=== PATIENT | male | born 1970 | race American Indian/Alaskan Native ===

== ENCOUNTER 2018-02-05 06:01 | Inpatient (IN) | payer MEDICAID ==
[~2018-02-05] VITALS: Ht 172.7 cm; Wt 68.0 kg
[2018-02-05 06:07] VITALS: BP_SYST 122
--- NOTE | 2018-02-05 06:08 | NUR ---
Patient to ER bed 4 to gown for evaluation. Side rails up. Report given to POOL DUMONT.
--- NOTE | 2018-02-05 06:26 | NUR ---
# 20 gauge angiocath placed to left AC. Use of asceptic technique. Opsite placed over site. Blood return noted. Blood for lab drawn from site. Flushed with 10 cc of normal saline. No evidence of infiltration noted. Patient tolerated well.
[2018-02-05] MEDS ORDERED: NACL 0.9% 1,000 ML IV ONE (06:45)
[2018-02-05 06:52] LABS: BASOPHILS % (AUTO) 0.3 % (0.0-2.0); EOSINOPHILS % (AUTO) 0.2 % (0.0-4.0); HEMATOCRIT 40.8 % (36-54); HEMOGLOBIN 13.6 g/dL (14.0-18.0); LYMPHOCYTES # (AUTO) 0.5 K/uL (1.0-5.5); LYMPHOCYTES % (AUTO) 10.3 % (20.5-51.5); MEAN CORPUSCULAR HEMOGLOBIN 33 pg (27-31); MEAN CORPUSCULAR HGB CONC 33 % (32-36); MEAN CORPUSCULAR VOLUME 99 fL (79.0-98.0); MONOCYTES # (AUTO) 0.3 K/uL (0.0-1.0); MONOCYTES % (AUTO) 5.5 % (1.7-9.3); NEUTROPHILS # (AUTO) 4.5 K/uL (1.8-7.7); NEUTROPHILS % (AUTO) 83.7 % (40.0-70.0); RED BLOOD CELL COUNT(AUTO) 4.12 MIL/uL (4.2-6.2); RED CELL DISTRIBUTION WIDTH 13.9 % (9.0-15.0); WHITE BLOOD COUNT (AUTO) 5.3 K/uL (4.8-10.8)
--- NOTE | 2018-02-05 06:54 | NUR ---
Patient came in complaining of ABD pain which is diffused at a 8/10 and vomitting that has lasted for the past 3 weeks. Patient states that he drinks about a bottle of vodka week. History of diabetes, HTN, anxiety. NKDA. No other complaints/injuries noted. Will continue to monitor.
--- NOTE | 2018-02-05 06:54 | NUR ---
Note undone in EDM - 02/05/18 at 0700 by [email or web address] Patient came in complaining of ABD pain and vomitting that has lasted for the past 3 weeks. Patient states that he drinks about a bottle week. History of diabetes, HTN, anxiety. NKDA. No other complaints/injuries noted. Will continue to monitor.
[2018-02-05 06:57] LABS: ALBUMIN 3.4 g/dL (3.4-4.8); CALCIUM 8.1 mg/dL (8.4-11.0); CREATININE 0.7 mg/dL (0.55-1.30); TOTAL BILIRUBIN 7.3 mg/dL (0.0-1.0)
[2018-02-05 06:59] LABS: POTASSIUM 2.2 mmol/L (3.5-5.1)
--- NOTE | 2018-02-05 07:00 | NUR ---
ER at bedside examining patient.
[2018-02-05 07:13] LABS: PLATELET COUNT (AUTO) 96 K/uL (130-430)
[2018-02-05] MEDS ORDERED: POTASSIUM CHLORIDE 20 MEQ/PKT PACKET PO ONE (07:15)
--- NOTE | 2018-02-05 07:19 | NUR ---
Pt medicated pt tolerated well.
[2018-02-05] MEDS ORDERED: GLU500 PO (08:20)
[2018-02-05] MEDS ORDERED: LISI-600 PO (08:20)
[2018-02-05] MEDS ORDERED: GLIP5TAB13 PO (08:20)
[2018-02-05] MEDS ORDERED: FOLIC ACID 1 MG, THIAMINE HCL 100 MG, MAGNESIUM SULFATE 1 GM, MVI 10 ML in NACL 0.9% 1,... IV ONE (08:45)
--- NOTE | 2018-02-05 08:55 | NUR ---
Patient will be admitted to care of Dr. Mccoy. Admitted to tele unit. Will go to room 116-B. Belongings list completed. Summary report printed. Report will be given at bedside. Transfer to tele via ACLS protocol. Licensed nurse present. IV present no signs or symptoms of infiltration.
--- NOTE | 2018-02-05 08:57 | NUR ---
ADMISSION NOTE Received patient from ER via gurney. Patient admitted with diagnosis of acute pancreatitis. Patient is awake, alert, oriented X 4. Patient oriented to hospital room, call light, toileting, pain management and safety-teach back done. Patient informed that Esteban will be his nurse and that their room number is 116B. Personal belongings checked and Belongings List documented. Call light within reach.
[2018-02-05] MEDS: ONDANSETRON HCL 4 MG/2 ML VIAL IVP PRN ×2 (09:19→23:28)
[2018-02-05] MEDS: MORPHINE 4 MG/ML INJ. SYRINGE IVP PRN ×4 (09:20→22:46)
[2018-02-05 09:30] VITALS: BP_SYST 142
--- NOTE | 2018-02-05 09:50 | NUR ---
TRANSFER OF CARE REPORT IS RECEIVED FROM ADMISSION NURSE AND CARE IS ENDORSED TO MYSELF. PT IS RECEIVED AWAKE, ALERT, AND ORIENTED X4. NO SIGNS OR SYMPTOMS OF DISTRESS OR SOB NOTED. PAIN MEDICATION WAS GIVEN. PT HAS MULTIPLE BRUISING IN DIFFERENT STAGES OF HEALING THROUGHOUT BODY, SKIN IS INTACT. PT IS COMPLAINING OF BILATERAL LOWER LEG WEAKNESS, PEDAL PULSES PRESENT, PT IS ABLE TO WIGGLES TOES AND PUSH AGAINST MY HANDS. WALKER AT BEDSIDE. PT ADVISED TO USE CALL LIGHT IF HE NEEDS TO HAVE A BOWEL MOVEMENT. URINAL AT BEDSIDE. WHITE BOARD IS UPDATED AND PLAN OF CARE IS DISCUSSED. CURRENT NEEDS ARE MET. BED IS AT LOWEST POSITION, CALL LIGHT WITHIN REACH, THREE SIDE RAILS UP, BED ALARM IS ON. WILL CONTINUE TO MONITOR.
[2018-02-05] MEDS: LORazepam 2 MG/ML VIAL IVP PRN (10:27)
--- NOTE | 2018-02-05 10:51 | NUR ---
ROUNDS PT IS AWAKE AND ALERT, WATCHING TV. NO SIGNS OR SYMPTOMS OF DISTRESS OR SOB NOTED. GAVE PRN ATIVAN IVP PER PT REQUEST AND STATED ANXIETY. BANANA BAG WAS HUNG AND IS INFUSING. CURRENT NEEDS ARE MET. BED IS AT LOWEST POSITION, CALL LIGHT WITHIN REACH, THREE SIDE RAILS UP, BED ALARM IS ON. WILL CONTINUE TO MONITOR.
--- NOTE | 2018-02-05 11:19 | NUR ---
CONSULTATION PAGED REASON FOR CONSULT - GI WAS CONSULT CALLED - YES PERSON NOTIFIED - DENIS CONSULTING PHYSICIAN - DR. FLOR NUMBER CALLED - [phone] ORDERING PHYSICIAN - DR. FIELD
--- NOTE | 2018-02-05 12:16 | NUR ---
ROUNDS PT IS AWAKE AND ALERT, WATCHING TV. NO SIGNS OR SYMPTOMS OF DISTRESS OR SOB NOTED. PT DENIES ANY PAIN. SON IS AT BEDSIDE. CURRENT NEEDS ARE MET. BED IS AT LOWEST POSITION, CALL LIGHT WITHIN REACH, THREE SIDE RAILS UP, BED ALARM IS ON. WILL CONTINUE TO MONITOR.
[2018-02-05 12:45] VITALS: BP_SYST 142
[2018-02-05] MEDS ORDERED: FAMOTIDINE 20 MG TABLET PO ONE (14:15)
[2018-02-05] MEDS ORDERED: BISACODYL 5 MG TABLET.DR (DULCOLAX) PO PRN (14:15)
[2018-02-05] MEDS ORDERED: POTASSIUM CHLORIDE 20 MEQ TAB.PRT.SR PO ONE (14:15)
[2018-02-05] MEDS ORDERED: BISACODYL 10 MG/SUPPOSITORY RC PRN (14:15)
[2018-02-05] MEDS ORDERED: BISACODYL 5 MG TABLET.DR (DULCOLAX) PO ONE (14:15)
[2018-02-05] MEDS ORDERED: KCL 20 mEq in 100 mL (PREMIX) 200 ML IV ONE (14:30)
[2018-02-05] MEDS ORDERED: DOCUSATE SODIUM 250 MG CAPSULE PO ONE (14:30)
[2018-02-05] MEDS ORDERED: DEXTROSE 50% JECT 50 ML DISP.SYRIN IVP PRN (14:45)
[2018-02-05] MEDS ORDERED: chlordiazePOXIDE HCL 25 MG CAPSULE PO ONE (14:45)
--- NOTE | 2018-02-05 14:54 | NUR ---
ROUNDS PT IS AWAKE AND ALERT, WATCHING TV. NO SIGNS OR SYMPTOMS OF DISTRESS OR SOB NOTED. PT IS COMPLAINING OF RIGHT FLANK PAIN OF 8 OUT OF 10 AND WAS GIVEN PRN MORPHINE IVP. ADVISED PT OF INCREASED RISK FOR FALLS AND THE NEED TO USE CALL LIGHT. PT VERBALIZED UNDERSTANDING. CURRENT NEEDS ARE MET. BED IS AT LOWEST POSITION, CALL LIGHT WITHIN REACH, THREE SIDE RAILS UP, BED ALARM IS ON. WILL CONTINUE TO MONITOR.
[2018-02-05] MEDS ORDERED: THIAMINE HCL 100 MG TABLET PO ONE (16:15)
--- NOTE | 2018-02-05 16:25 | NUR ---
CONSULTATION PAGED REASON FOR CONSULTATION - CP WAS CONSULT CALLED - Y PERSON WHO WAS NOTIFIED - EXCHANGE CONSULTING PHYSICIAN - DR. GOLDSMITH ; VASCULAR TECHNOLOGIST SONOGRAPHER - DR. RICH NUMBER CALLED - [phone] ORDERING PHYSICIAN - DR. FIELD
[2018-02-05 16:40] VITALS: BP_SYST 137
[2018-02-05] MEDS: chlordiazePOXIDE HCL 25 MG CAPSULE PO SCH ×2 (16:45→20:56)
--- NOTE | 2018-02-05 16:45 | NUR ---
ROUNDS LATE ENTRY DUE TO PT CARE: PT IS AWAKE AND ALERT, WATCHING TV. NO SIGNS OR SYMPTOMS OF DISTRESS OR SOB NOTED. NO INSULIN COVERAGE WAS NEEDED PER SLIDING SCALE. SCHEDULED MEDICATIONS WERE GIVEN BY MOUTH AND TOLERATED WELL. PT SIGNED CONSENT FOR HIDA SCAN TOMORROW MORNING AND AWARE HE WILL BE NPO EFFECTIVE MIDNIGHT. CURRENT NEEDS ARE MET. BED IS AT LOWEST POSITION, CALL LIGHT WITHIN REACH, THREE SIDE RAILS UP, BED ALARM IS ON. WILL CONTINUE TO MONITOR.
[2018-02-05] MEDS: LR 1,000 ML IV SCH ×2 (17:02→21:02)
[2018-02-05] MEDS: metFORMIN HCL 500 MG TABLET PO SCH (17:03)
[2018-02-05] MEDS: POTASSIUM CHLORIDE 20 MEQ/PKT PACKET PO SCH (18:44)
--- NOTE | 2018-02-05 18:50 | NUR ---
CLOSING NOTE PT IS AWAKE AND ALERT, WATCHING TV. NO SIGNS OR SYMPTOMS OF DISTRESS OR SOB NOTED. PT COMPLAINS OF PAIN OF 8 OUT OF 10 IN RIGHT FLANK AREA AND GAVE PRN MORPHINE. PT ADVISED OF INCREASED RISK FOR FALLS AND THE IMPORTANCE OF USING CALL LIGHT IF HE WANTS TO GET OUT OF BED. PT VERBALIZED UNDERSTANDING. CURRENT NEEDS ARE MET. BED IS AT LOWEST POSITION, CALL LIGHT WITHIN REACH, TWO SIDE RAILS UP. WILL CONTINUE TO MONITOR UNTIL CARE AND REPORT IS GIVEN TO STRUCTURAL FITTER NURSE.
--- NOTE | 2018-02-05 19:15 | NUR ---
CHANGE OF SHIFT; pt. awake, alert and oriented, resting, was just medicated with Morphine. IVF infusing @ 250 ml/hr via left antecubital.on night monitor and shows sinus tach. on fall precautions, bed alarms on. able to move all extremities but noted weakness, bilateral sequentials on. communication board updated. call light within reach.
[2018-02-05 20:00] VITALS: BP_SYST 139
[2018-02-05] MEDS: DOCUSATE SODIUM 250 MG CAPSULE PO SCH (20:55)
[2018-02-05] MEDS: LISINOPRIL 20 MG TABLET PO SCH (20:56)
[2018-02-05] MEDS: FAMOTIDINE 20 MG TABLET PO SCH (20:56)
--- NOTE | 2018-02-05 21:11 | NUR ---
NOTES: pt. assisted to the restroom with walker. schedule meds given and tolerated well. IVF @ 250 cc/hr. K rider completed. call light within reach. fall precautions observed, bed alarm turn back on.
--- NOTE | 2018-02-05 23:00 | NUR ---
NOTES: pt. medicated for abdominal pain, offered to go restroom but denies.
--- NOTE | 2018-02-05 23:46 | NUR ---
NOTES: pt. getting restless for the HIDA scan tomorrow and now nauseated, IV Zofran given. instructed to relax, dep breathing . reminded to use call light for help, tends not to call and just get out of bed without warning, bed alarm on.
[2018-02-06 00:16] VITALS: BP_SYST 113
--- NOTE | 2018-02-06 00:30 | NUR ---
NOTES: pt. set the alarm, did not use the call light, helped to go to restroom with a walker. pt. was given medication fro the nausea earlier, no vomiting noted. on fall precaution.
[2018-02-06] MEDS: LR 1,000 ML IV SCH ×6 (02:16→23:15)
--- NOTE | 2018-02-06 03:14 | NUR ---
NOTES: pt. took off the ekg patches x2 , seems to be getting confused, reorient and instructed not to remove. cardiac pattern unchanged. IVF infusing @ 250 cc/hr. informed charge nurse kristy, will transfer pt. to other room to be watch closely.
--- NOTE | 2018-02-06 03:24 | NUR ---
NOTES: pt. was transferred to room 111 BED A.
[2018-02-06] MEDS: MORPHINE 4 MG/ML INJ. SYRINGE IVP PRN ×4 (05:31→21:12)
--- NOTE | 2018-02-06 05:41 | NUR ---
NOTES: EKG done. IV was disconnected and resume @ 250 cc/hr. medicated with Morphine as ordered for c/o abdominal pain. kept NPO.
[2018-02-06 06:41] LABS: INR 1.1 (0.80-1.20); PROTHROMBIN TIME 10.8 SECS (9.5-12.5)
--- NOTE | 2018-02-06 06:42 | NUR ---
CLOSING NOTES: pt. asleep after pain med given. will check BS. IVF patent. sequentials on. needs further care and assistance.
[2018-02-06 06:49] LABS: BASOPHILS % (AUTO) 0.5 % (0.0-2.0); EOSINOPHILS % (AUTO) 0.7 % (0.0-4.0); LYMPHOCYTES # (AUTO) 0.8 K/uL (1.0-5.5); MONOCYTES # (AUTO) 0.3 K/uL (0.0-1.0); NEUTROPHILS % (AUTO) 73.4 % (40.0-70.0)
[2018-02-06 07:09] LABS: ANION GAP 5 (5-15); CALCIUM 7.7 mg/dL (8.4-11.0); CHLORIDE 104 mmol/L (98-107); CREATININE 0.55 mg/dL (0.55-1.30); GFR AFRICAN AMERICAN 206 mL/min (>90); GLUCOSE 114 mg/dL (70-99); POTASSIUM 3.4 mmol/L (3.5-5.1); SODIUM SERUM 138 mmol/L (136-145); TOTAL BILIRUBIN 5.8 mg/dL (0.0-1.0); UREA NITROGEN, BLOOD 13 mg/dL (8-21)
[2018-02-06 07:10] LABS: ALANINE AMINOTRANSFERASE 47 U/L (12-78); ALBUMIN 2.3 g/dL (3.4-4.8); ASPARTATE AMINOTRANSFERASE 69 U/L (10-37); CHOLESTEROL 173 mg/dL (<200); HDL CHOLESTEROL 20 mg/dL (>45); LDL CHOLESTEROL 130 mg/dL (<100); TRIGLYCERIDES 159 mg/dL (30-150)
[2018-02-06 07:15] LABS: HEMATOCRIT 34.3 % (36-54); HEMOGLOBIN 11.4 g/dL (14.0-18.0); LYMPHOCYTES % (AUTO) 18.4 % (20.5-51.5); MEAN CORPUSCULAR HEMOGLOBIN 34 pg (27-31); MEAN CORPUSCULAR HGB CONC 33 % (32-36); MEAN CORPUSCULAR VOLUME 101 fL (79.0-98.0); NEUTROPHILS # (AUTO) 3.5 K/uL (1.8-7.7); PLATELET COUNT (AUTO) 72 K/uL (130-430); RED BLOOD CELL COUNT(AUTO) 3.39 MIL/uL (4.2-6.2); RED CELL DISTRIBUTION WIDTH 13.6 % (9.0-15.0); WHITE BLOOD COUNT (AUTO) 4.6 K/uL (4.8-10.8)
--- NOTE | 2018-02-06 07:15 | NUR ---
endorsed to incoming shift with nurse Beltran, qasim. sleeping.
--- NOTE | 2018-02-06 07:53 | NUR ---
Patient is asleep, but arousable. A/Ox4. ST on monitor. IV on Left AC, #20, LR, at 250ml/hr, intact and patent. Call light in place, bed locked at the lowest position, bed alarm on, will continue to monitor.
[2018-02-06] MEDS: metFORMIN HCL 500 MG TABLET PO SCH ×2 (08:00→17:01)
--- NOTE | 2018-02-06 08:08 | NUR ---
Nutrition Update Lino Scale 18 noted. Pt admitted for acute pancreatitis Diet: NPO BMI: 22.8 kg/m2 RD to follow per nutrition care standards.
[2018-02-06] MEDS: chlordiazePOXIDE HCL 25 MG CAPSULE PO SCH ×4 (08:10→22:05)
[2018-02-06] MEDS: DOCUSATE SODIUM 250 MG CAPSULE PO SCH ×2 (08:10→20:18)
[2018-02-06] MEDS: FAMOTIDINE 20 MG TABLET PO SCH ×2 (08:10→20:20)
[2018-02-06] MEDS: POTASSIUM CHLORIDE 20 MEQ/PKT PACKET PO SCH ×3 (08:10→18:45)
[2018-02-06] MEDS: MORPHINE 2 MG/ML INJ. SYRINGE IVP PRN ×3 (08:17→23:16)
[2018-02-06 08:23] VITALS: BP_SYST 119
[2018-02-06 08:26] LABS: LIPASE 1539 U/L (73-393)
[2018-02-06] MEDS: LISINOPRIL 20 MG TABLET PO SCH ×2 (09:00→20:18)
--- NOTE | 2018-02-06 10:28 | NUR ---
Patient is still c/o pain. will give pain meds according to pain scale
[2018-02-06 11:02] VITALS: BP_SYST 119
--- NOTE | 2018-02-06 12:45 | NUR ---
Patient tolerated clear liquid lunch without distress.
[2018-02-06] MEDS: NEPHROVITE, (FOLIC ACID/VITAMIN B COMP W-C 1 TAB) PO SCH (12:57)
[2018-02-06] MEDS: CHOLECALCIFEROL (VITAMIN D3) 2,000 UNIT TABLET PO SCH (12:57)
[2018-02-06] MEDS: THIAMINE HCL 100 MG TABLET PO SCH (12:57)
[2018-02-06] MEDS: MULTIVITS,CA,MINERALS/IRON/FA 1 TABLET PO SCH (12:57)
--- NOTE | 2018-02-06 13:10 | NUR ---
Dietitian Recommendations *Recommend continuing clear liquid diet per MD orders. *Recommend advance diet when medically appropriate (CCHO Low Fat 2gm Na diet). Please see Nutritional Assessment for details. ANA LAURA, RD
[2018-02-06] MEDS: LORazepam 2 MG/ML VIAL IVP PRN (13:11)
--- NOTE | 2018-02-06 14:40 | NUR ---
Patient is c/o pain in the abdomen, will give pain medication per order.
--- NOTE | 2018-02-06 15:32 | NUR ---
PATIENT HAS PAIN IN THE ABDOMINAL PAIN 12/30. MORPHINE 4MG IS GIVEN IVP. WILL REASSESS.
[2018-02-06 16:02] VITALS: BP_SYST 138
--- NOTE | 2018-02-06 18:00 | NUR ---
DR. FIELD IS SEEING THE PATIENT. ORDERS ARE GIVEN.
[2018-02-06] MEDS ORDERED: MAGNESIUM SULFATE 4 GM in D5W 250 ML IV ONE (18:45)
--- NOTE | 2018-02-06 19:54 | NUR ---
Initial note: Received handoff report from POOL Beltran at patient's bedside. Patient is awake in bed, alert and oriented x4. No signs or symptoms of acute distress, denies difficulty breathing. IV noted to patient's left AC with IV fluids infusing well to site. Patient's urinal is at bedside. Safety and fall precautions in place, call light is with patient. Will continue with plan of care.
[2018-02-06 20:18] VITALS: BP_SYST 136
--- NOTE | 2018-02-06 22:24 | NUR ---
Rounds: Patient is awake, watching TV in bed. Does not show any signs or symptoms of acute distress. Safety and fall precautions in place, call light is with patient. Will continue to monitor.
[2018-02-07 00:42] VITALS: BP_SYST 142
--- NOTE | 2018-02-07 00:50 | NUR ---
New IV site: Informed by charge nurse POOL Barnett that patient had removed left AC IV line. Upon assessment, patient is alert and oriented x4. New IV access initiated by this RN to patient's left hand, 22 gauge. Site is secured with transparent dressing, tape, and gauze wrap. Will continue monitoring.
--- NOTE | 2018-02-07 02:08 | NUR ---
Patient at nurses' station: Patient found out of bed at the nurses' station at this time. When asked how he can be helped, patient stated, "None of my friends are here". Patient was reoriented, informed him that he is at the hospital. Guided patient back to his room, patient able to ambulate with steady gait. Upon assessment, patient is alert and oriented x3 to person, place, and time; patient is unable to provide a reason for being at the hospital. IV site to patient's left hand remains patent and benign. Safety and fall precautions in place. Will closely monitor.
--- NOTE | 2018-02-07 04:13 | NUR ---
Rounds: Patient is sleeping, no signs or symptoms of acute distress noted. Respirations are even and unlabored. Call light is with patient, safety and fall precautions in place. Will continue monitoring.
--- NOTE | 2018-02-07 06:00 | NUR ---
Closing note: Patient is awake in bed watching TV, does not show signs or symptoms of acute distress. No complaints of pain at this time. Breathing remains even and unlabored. All needs met and attended to. Call light is with patient, safety and fall precautions in place. Will endorse care to dayshift RN.
[2018-02-07 07:28] VITALS: BP_SYST 136
--- NOTE | 2018-02-07 07:32 | NUR ---
Initial note: Patient is alert, oriented x4, states having Rt abdominal pain at 6/10 pain scale , but does not need pain medication right now. He is on LR IVF at 100 ml/hr. He also states that yesterday one doctor said he will advance diet to full liquid diet. Will F/U with GI doctor.
[2018-02-07 08:10] LABS: PROTHROMBIN TIME 10.5 SECS (9.5-12.5)
[2018-02-07] MEDS: NEPHROVITE, (FOLIC ACID/VITAMIN B COMP W-C 1 TAB) PO SCH (08:19)
[2018-02-07] MEDS: FAMOTIDINE 20 MG TABLET PO SCH ×2 (08:19→20:06)
[2018-02-07] MEDS: THIAMINE HCL 100 MG TABLET PO SCH (08:19)
[2018-02-07] MEDS: MULTIVITS,CA,MINERALS/IRON/FA 1 TABLET PO SCH (08:20)
[2018-02-07] MEDS: LISINOPRIL 20 MG TABLET PO SCH ×2 (08:20→20:06)
[2018-02-07 08:24] LABS: ALBUMIN 2.2 g/dL (3.4-4.8); CREATININE 0.59 mg/dL (0.55-1.30); TOTAL BILIRUBIN 5.1 mg/dL (0.0-1.0)
[2018-02-07] MEDS: CHOLECALCIFEROL (VITAMIN D3) 2,000 UNIT TABLET PO SCH (08:24)
[2018-02-07] MEDS: chlordiazePOXIDE HCL 25 MG CAPSULE PO SCH ×2 (08:25→20:06)
[2018-02-07] MEDS: DOCUSATE SODIUM 250 MG CAPSULE PO SCH ×2 (08:26→20:06)
[2018-02-07] MEDS: metFORMIN HCL 500 MG TABLET PO SCH ×2 (08:26→17:22)
[2018-02-07] MEDS: POTASSIUM CHLORIDE 20 MEQ/PKT PACKET PO SCH (08:28)
--- NOTE | 2018-02-07 08:30 | NUR ---
GI round: Dr. Palma makes round and has new order for Abdominal US and advance diet to Full liquid diet. Keep patient NPO for US.
[2018-02-07 08:59] LABS: BASOPHILS % (AUTO) 0.7 % (0.0-2.0); EOSINOPHILS % (AUTO) 1.1 % (0.0-4.0); HEMATOCRIT 32.5 % (36-54); HEMOGLOBIN 10.8 g/dL (14.0-18.0); LYMPHOCYTES # (AUTO) 0.9 K/uL (1.0-5.5); LYMPHOCYTES % (AUTO) 21.5 % (20.5-51.5); MEAN CORPUSCULAR HEMOGLOBIN 34 pg (27-31); MEAN CORPUSCULAR HGB CONC 33 % (32-36); MEAN CORPUSCULAR VOLUME 102 fL (79.0-98.0); MONOCYTES # (AUTO) 0.3 K/uL (0.0-1.0); MONOCYTES % (AUTO) 8.2 % (1.7-9.3); NEUTROPHILS # (AUTO) 2.8 K/uL (1.8-7.7); NEUTROPHILS % (AUTO) 68.5 % (40.0-70.0); PLATELET COUNT (AUTO) 84 K/uL (130-430); RED BLOOD CELL COUNT(AUTO) 3.19 MIL/uL (4.2-6.2); RED CELL DISTRIBUTION WIDTH 13.9 % (9.0-15.0)
[2018-02-07] MEDS: MORPHINE 4 MG/ML INJ. SYRINGE IVP PRN ×2 (09:02→18:19)
[2018-02-07] MEDS: LR 1,000 ML IV SCH ×2 (09:39→19:50)
--- NOTE | 2018-02-07 09:55 | NUR ---
RN round: Patient is sleeping after pain medication given, ZU=601, RR=16, no sing of distress.
--- NOTE | 2018-02-07 11:45 | NUR ---
Hold Insulin for SS: Patient is NPO for Abdominal US, Accu [id number], hold Insulin for SS until off NPO.
[2018-02-07] MEDS ORDERED: MAGNESIUM SULFATE 50 ML IV ONE (13:00)
[2018-02-07] MEDS ORDERED: POTASSIUM CHLORIDE 20 MEQ TAB.PRT.SR PO ONE (13:15)
--- NOTE | 2018-02-07 13:57 | NUR ---
round: makes round and has additional orders.
--- NOTE | 2018-02-07 14:11 | NUR ---
Gutter Installer Note Patient referred to Gutter Installer due to substance abuse. PROGRAMMING ENGINEER met with patient at bedside. Discussed patient's alcoholism and life situation at length. Offered support, encouragement and guidance and provided patient with substance abuse resources. Patient has used AA in the past and plans to continue. Patient voices understanding that he must stop drinking if he wants to improve his health and get his life back in order. Patient provided with Social Service contact information.
--- NOTE | 2018-02-07 15:00 | NUR ---
Start Full liquid: Abdominal was done at bedside. Off "NPO" and start patient with Full liquid diet.
[2018-02-07 15:11] VITALS: BP_SYST 110
[2018-02-07 16:11] VITALS: BP_SYST 111
[2018-02-07] MEDS: INSULIN REGULAR, HUMAN 100 UNITS/ML, 10 ML VIAL (novoLIN R) SUBCUT PRN (17:26)
--- NOTE | 2018-02-07 18:44 | NUR ---
Closing note: Patient is stable, no sign of distress, tolerating Full liquid, no milk well, no N/V. On LR IVF @ 100 Ml/Hr infusing well, no infiltration noted.
--- NOTE | 2018-02-07 19:30 | NUR ---
INITIAL NOTES RECEIVED PATIENT ON BED ON SEMI FERGUSON'S POSITION, AWAKE AND RESTING BREATHING EVEN AND UNLABORED, NO SOB NOTED.PATIENT PATIENT WITH IVF INFUSING WELL, CLEAN DRY INTACT. MAINTAINED SAFETY PRECAUTIONS AND BED ON THE LOWEST POSITION. EXPLAINED THE PLAN OF CARE AND STATED UNDERSTANDING, EXPLAINED THE MEDICATIONS AND STATED UNDERSTANDING. WILL CONTINUE TO MONITOR CALL LIGHT WITHIN REACH.
[2018-02-07 20:00] VITALS: BP_SYST 125
[2018-02-07] MEDS: POTASSIUM CHLORIDE 20 MEQ TAB.PRT.SR PO SCH (20:07)
--- NOTE | 2018-02-07 21:55 | NUR ---
ASSISTED PATIENT PATIENT ASSISTED TO THE BATHROOM, PATIENT WITH STEADY GAIT, PATIENT STILL EDUCATED ON CALLING THE NURSE TO PREVENT FALLS AND PATIENT STATED UNDERSTANDING WILL CONTINUE TO MONITOR CALL LIGHT WITHIN REACH.
--- NOTE | 2018-02-07 23:30 | NUR ---
IV IV WAS ACCIDENTALLY PULLED BY THE PATIENT, IV CANNULA INTACT, NO ACTIVE BLEEDING NOTED, SECURED WITH TAPE AND DRESSING.
--- NOTE | 2018-02-08 00:13 | NUR ---
NEW IV NEW IV ON THE RFA 20 G, CLEAN DRY INTACT NO SWELLING NOTED, WILL CONTINUE TO MONITOR, PATIENT ON STABLE CONDITION CALL LIGHT WITHIN REACH.
[2018-02-08 00:15] VITALS: BP_SYST 117
--- NOTE | 2018-02-08 02:30 | NUR ---
RN ROUNDS PATIENT ON BED SLEEPING AND RESTING, ON STABLE CONDITION, NO PAIN NOTED, MAINTAINED SAFETY PRECAUTIONS CALL LIGHT WITHIN REACH.
--- NOTE | 2018-02-08 04:10 | NUR ---
RN ROUNDS PATIENT AWAKE AND RESTING, ON STABLE CONDITION, ASSISTED PATIENT TO THE BATHROOM, SAFETY PRECAUTIONS MAINTAINED WILL CONTINUE TO MONITOR CALL LIGHT WITHIN REACH.
[2018-02-08] MEDS: LR 1,000 ML IV SCH ×3 (06:00→16:39)
--- NOTE | 2018-02-08 06:53 | NUR ---
CLOSING NOTES PATIENT ON BED AWAKE AND RESTING WATCHING TV, BREATHING EVEN AND UNLABORED, NO SOB NOTED, NO PAIN NOTED, NO NAUSEA AND VOMITING NOTED, MAINTAINED POSITION OF COMFORT AND SAFETY. ALL DUE MEDICATIONS GIVEN AND TOLERATED WELL, EDUCATION GIVEN AND SIDE EFFECTS, STATED UNDERSTANDING. IVF INFUSING WELL, CLEAN DRY INTACT. ALL NEEDS MET, KEPT PATIENT COMFORTABLE, WILL GIVE REPORT TO AM NURSE, WILL CONTINUE TO MONITOR. CALL LIGHT WITHIN REACH.
[2018-02-08 07:14] LABS: BASOPHILS % (AUTO) 1.2 % (0.0-2.0); EOSINOPHILS % (AUTO) 0.7 % (0.0-4.0); HEMATOCRIT 31.5 % (36-54); HEMOGLOBIN 10.8 g/dL (14.0-18.0); LYMPHOCYTES % (AUTO) 24.8 % (20.5-51.5); MEAN CORPUSCULAR HEMOGLOBIN 35 pg (27-31); MEAN CORPUSCULAR HGB CONC 34 % (32-36); MEAN CORPUSCULAR VOLUME 101 fL (79.0-98.0); MONOCYTES # (AUTO) 0.5 K/uL (0.0-1.0); MONOCYTES % (AUTO) 11.7 % (1.7-9.3); NEUTROPHILS # (AUTO) 2.7 K/uL (1.8-7.7); NEUTROPHILS % (AUTO) 61.6 % (40.0-70.0); PLATELET COUNT (AUTO) 110 K/uL (130-430); RED BLOOD CELL COUNT(AUTO) 3.14 MIL/uL (4.2-6.2); RED CELL DISTRIBUTION WIDTH 14.4 % (9.0-15.0); WHITE BLOOD COUNT (AUTO) 4.2 K/uL (4.8-10.8)
[2018-02-08 07:30] LABS: ALBUMIN 2.1 g/dL (3.4-4.8); CALCIUM 8.2 mg/dL (8.4-11.0); CREATININE 0.64 mg/dL (0.55-1.30); POTASSIUM 3.6 mmol/L (3.5-5.1); TOTAL BILIRUBIN 5.6 mg/dL (0.0-1.0)
--- NOTE | 2018-02-08 07:30 | NUR ---
OPENING NOTE PT AWAKE ALERT, SITTING UP IN BED. PT DENIES ANY PAIN AT THIS TIME. PT AMBULATED TO THE RESTROOM WELL- STEADY GAIT NOTED. BED IN THE LOWEST POSITION, PT REFUSING BED ALARM- ENCOURAGED TO CALL FOR HELP USING THE CALL LIGHT . NO DISTRESS NOTED
[2018-02-08 08:00] VITALS: BP_SYST 161
[2018-02-08] MEDS: MORPHINE 4 MG/ML INJ. SYRINGE IVP PRN ×2 (09:06→14:55)
[2018-02-08] MEDS: metFORMIN HCL 500 MG TABLET PO SCH (09:07)
[2018-02-08] MEDS: NEPHROVITE, (FOLIC ACID/VITAMIN B COMP W-C 1 TAB) PO SCH (09:07)
[2018-02-08] MEDS: MULTIVITS,CA,MINERALS/IRON/FA 1 TABLET PO SCH (09:07)
[2018-02-08] MEDS: DOCUSATE SODIUM 250 MG CAPSULE PO SCH ×2 (09:07→21:01)
[2018-02-08] MEDS: LISINOPRIL 20 MG TABLET PO SCH ×2 (09:08→21:03)
[2018-02-08] MEDS: chlordiazePOXIDE HCL 25 MG CAPSULE PO SCH ×2 (09:08→21:02)
[2018-02-08] MEDS: FAMOTIDINE 20 MG TABLET PO SCH ×2 (09:08→21:02)
[2018-02-08] MEDS: CHOLECALCIFEROL (VITAMIN D3) 2,000 UNIT TABLET PO SCH (09:08)
[2018-02-08] MEDS: THIAMINE HCL 100 MG TABLET PO SCH (09:08)
[2018-02-08] MEDS: POTASSIUM CHLORIDE 20 MEQ TAB.PRT.SR PO SCH ×2 (09:09→21:02)
--- NOTE | 2018-02-08 09:16 | NUR ---
MED PASS PT C/O RIGHT FLANK PAIN GIVEN MORPHINE ORDERED. PO MORNING MEDS GIVEN. SAFETY MAINTAINED.
[2018-02-08] MEDS: INSULIN REGULAR, HUMAN 100 UNITS/ML, 10 ML VIAL (novoLIN R) SUBCUT PRN ×2 (11:35→16:43)
--- NOTE | 2018-02-08 11:39 | NUR ---
BLOOD SUGAR CHECK BS 228 PT WAS GIVEN 4 UNITS REGULAR INSULIN. SAFETY MAINTAINED. NO DISTRESS NOTED.
[2018-02-08 12:12] VITALS: BP_SYST 117
[2018-02-08] MEDS: LORazepam 2 MG/ML VIAL IVP PRN (14:00)
--- NOTE | 2018-02-08 14:02 | NUR ---
MED PASS PT GIVEN ATIVAN FOR ANXIETTY AND AGITATION AT THIS TIME. PT UPSET AND REQUESTING MORPHINE FOR PAIN - PT MADE AWARE THAT MEDICATIONS WILL BE GIVEN 1 HR APART FROM ATIVAN.
--- NOTE | 2018-02-08 14:57 | NUR ---
PAIN MED PT COMPLAINING OF PAIN 10/10 GIVEN MORPHINE ORDERED. SAFETY MAINTAINED. WILL MONITOR.
--- NOTE | 2018-02-08 16:46 | NUR ---
blood sugar bs- 184 pt was given 2 units regular insulin. safety maintained.
[2018-02-08 16:57] VITALS: BP_SYST 116
[2018-02-08] MEDS: MORPHINE 2 MG/ML INJ. SYRINGE IVP PRN (19:40)
--- NOTE | 2018-02-08 19:40 | NUR ---
ROUNDS PATIENT RESTING COMFORTABLY IN BED, NOT IN DISTRESS, VITALS STABLE. DENIES ANY PAIN AND DISCOMFORT AT THIS TIME. ASSESSMENT DONE AND DOCUMENTED. SEE FLOWSHEET. NEEDS ATTENDED TO. SAFETY MEASURES IN PLACED. BED IN LOW AND LOCKED POSITION. SIDERAILS UP X2. CALL LIGHT PLACED WITHIN REACH.
--- NOTE | 2018-02-08 21:15 | NUR ---
MEDICATION DUE MEDICATIONS GIVEN SCHEDULED, TOLERATED WELL. WILL CONTINUE TO MONITOR.
--- NOTE | 2018-02-09 00:12 | NUR ---
PATIENT RESTING: Patient resting quietly. No acute distress noted. Vital signs within normal range.
[2018-02-09 00:16] VITALS: BP_SYST 98
--- NOTE | 2018-02-09 02:12 | NUR ---
ROUNDS PATIENT ASLEEP, NOT IN DISTRESS, VITALS STABLE. WILL CONTINUE TO MONITOR.
[2018-02-09] MEDS: MORPHINE 2 MG/ML INJ. SYRINGE IVP PRN ×3 (02:55→19:46)
[2018-02-09] MEDS: LR 1,000 ML IV SCH ×2 (02:59→12:39)
--- NOTE | 2018-02-09 04:00 | NUR ---
PATIENT RESTING: Patient resting quietly. No acute distress noted. Vital signs within normal range.
--- NOTE | 2018-02-09 06:35 | NUR ---
CLOSING NOTES PATIENT AWAKE, VITALS STABLE, ACCU CHECK DONE WITH BLOOD SUGAR OF 161. PATIENT REFUSED INSULIN COVERAGE AT THIS TIME. ALL NEEDS ATTENDED TO. SAFETY MEASURES MAINTAINED. CALL LIGHT PLACED WITHIN REACH.
[2018-02-09 07:02] LABS: BASOPHILS % (AUTO) 0.6 % (0.0-2.0); EOSINOPHILS % (AUTO) 0.5 % (0.0-4.0); HEMATOCRIT 31.9 % (36-54); HEMOGLOBIN 10.3 g/dL (14.0-18.0); LYMPHOCYTES # (AUTO) 1.1 K/uL (1.0-5.5); LYMPHOCYTES % (AUTO) 26.7 % (20.5-51.5); MEAN CORPUSCULAR HEMOGLOBIN 33 pg (27-31); MEAN CORPUSCULAR HGB CONC 32 % (32-36); MEAN CORPUSCULAR VOLUME 102 fL (79.0-98.0); MONOCYTES # (AUTO) 0.6 K/uL (0.0-1.0); MONOCYTES % (AUTO) 14.7 % (1.7-9.3); NEUTROPHILS # (AUTO) 2.3 K/uL (1.8-7.7); NEUTROPHILS % (AUTO) 57.5 % (40.0-70.0); PLATELET COUNT (AUTO) 134 K/uL (130-430); RED BLOOD CELL COUNT(AUTO) 3.14 MIL/uL (4.2-6.2); RED CELL DISTRIBUTION WIDTH 14.8 % (9.0-15.0)
[2018-02-09 07:05] LABS: CALCIUM 8.2 mg/dL (8.4-11.0); CREATININE 0.61 mg/dL (0.55-1.30); POTASSIUM 3.8 mmol/L (3.5-5.1); TOTAL BILIRUBIN 4.3 mg/dL (0.0-1.0)
--- NOTE | 2018-02-09 07:37 | NUR ---
OPENING NOTE PT AWAKE ALERT, NO DISTRESS NOTED. CALL LIGHT WITHIN REACH. BED IN LOWEST POSITION, PT REFUSING BED ALARM AT THIS TIME. SAFETY MAINTAINED.
[2018-02-09 08:00] VITALS: BP_SYST 114
[2018-02-09] MEDS: POTASSIUM CHLORIDE 20 MEQ TAB.PRT.SR PO SCH ×2 (08:30→21:03)
[2018-02-09] MEDS: NEPHROVITE, (FOLIC ACID/VITAMIN B COMP W-C 1 TAB) PO SCH (08:30)
[2018-02-09] MEDS: chlordiazePOXIDE HCL 25 MG CAPSULE PO SCH ×2 (08:30→21:03)
[2018-02-09] MEDS: DOCUSATE SODIUM 250 MG CAPSULE PO SCH ×2 (08:30→21:03)
[2018-02-09] MEDS: CHOLECALCIFEROL (VITAMIN D3) 2,000 UNIT TABLET PO SCH (08:30)
[2018-02-09] MEDS: FAMOTIDINE 20 MG TABLET PO SCH ×2 (08:30→21:04)
[2018-02-09] MEDS: THIAMINE HCL 100 MG TABLET PO SCH (08:30)
[2018-02-09] MEDS: LISINOPRIL 20 MG TABLET PO SCH ×2 (08:31→21:04)
[2018-02-09] MEDS: MULTIVITS,CA,MINERALS/IRON/FA 1 TABLET PO SCH (08:31)
--- NOTE | 2018-02-09 08:35 | NUR ---
med pass am meds given at this time. pt c/o left sided flank pain given morphine 2 mgs as ordered. pt npo after am meds.
--- NOTE | 2018-02-09 11:13 | NUR ---
blood sugar bs- 109 no coverage needed.
[2018-02-09 12:38] VITALS: BP_SYST 113
--- NOTE | 2018-02-09 12:41 | NUR ---
med pass new ivf hung a this itme. video poker floorman speaking with pt as well. safety maintained.
--- NOTE | 2018-02-09 15:12 | NUR ---
PT STILL IN HIDA SCAN AT THIS TIME.
--- NOTE | 2018-02-09 16:00 | NUR ---
[facility] pt still npo for possible further imaging
[2018-02-09 16:42] VITALS: BP_SYST 118
--- NOTE | 2018-02-09 16:56 | NUR ---
Nutrition F/U Admitting Diagnosis Acute Pancreatitis Reviewed Pertinent Medical/Surgical Hx Medical Record Patient Patient's mother Medical History Comment: Pt found w/: Acute Alcoholic Gastritis/Esophagitis, Atypical CP, Severe Hypokalemia, Fatty liver, HTN, DM, Peripheral neuropathy, Alcoholism, Anemia and thrombocytopenia per MD notes. Per MD Consult notes: Acute Pancreatitis, Acute hepatitis. Subjective Information Pt seen resting in bed at time of RD visit w/ mother at bedside. Pt reported that his appetite has been improving. Pt denied any N/V/C, but that he has been having diarrhea for the past couple of days. RD encouraged pt to try to drink adequate fluids; pt agreeable. Pt reported that he had gastric bypass 10 years ago, and as a result, has needed to avoids lactose-containing foods. Current diet remains appropriate. Pt was not interested in nutrition education. Current Diet Order/Nutrition Support 2 gm Na x1 day Patient/Significant Other Able To Verbalize Education Provided Not Indicated Pertinent Medications VIT D, nephrovite, thiamine, theragran-M,glipizide zofran, k-dur, SSI Pertinent Labs K 3.8 WNL (improved), BG 130 H, POC BG 161 H, ALB 2 L, H/H 10.3 L/31.9 L, WBC 4 L, TGL 159 H, Na 135 L, BUN 5 L Height (Feet) 5 feet Height (Inches) 8.00 inches Weight (Pounds) 150 pounds Weight (Calculated Kilograms) 68.333931 kilograms Patient Weight 68.039 kg Body Mass Index 22.80 kg/m2 %IBW 97 [place]/Adjusted Body Weight 154 lb, 70 kg Recent Weight Change Yes - per pt Weight Status Appropriate Last BM 02/09/18 x1 Food Allergies Yes - lactose-containing food per pt Usual Diet At Home regular diet per pt Skin Integrity Comment: Lino scale: 21; L abd w/ bruise per nursing notes Current % PO Fair (50-74%) Estimated Energy Expenditure (kcals/day) 6697-0082 kcal/day (30-35 kcal/kg CBW for maintenance) Estimated Protein Required (g/day) 68-102 gm/day (1-1.5 gm/kg CBW for acute hepatitis) Estimated Fluid Required (l/day) 2.4 L/day (35 ml/kg CBW for maintenance) Problem/Etiology/Signs/Symptoms Inadequate nutritional intake related to behavioral factors as evidenced by pt's report of poor oral intake d/t depression and replacing meals w/ alcohol intake. *ongoing Expected Outcomes/Goals Monitor advancement of diet, and increase in oral intake w/ goal of pt meeting at least 75% of estimated nutritional needs, labs trending WNL, normal GI function, skin integrity/wt maintenance. Dietitian Recommendations * Recommend CCHO, cardiac diet Follow Up Moderate Risk: F/U in 3-5 days
--- NOTE | 2018-02-09 17:08 | NUR ---
Dietitian Recommendations * Recommend CCHO, cardiac diet LP, RD Please refer to Nutrition F/U for details.
--- NOTE | 2018-02-09 18:49 | NUR ---
CLOSING NOTE ALL NEEDS MET THROUGH SHIFT. SAFETY MAINTAINED. WILL ENDORSE CARE TO LANDSCAPE MAINTENANCE INTERNSHIP.
--- NOTE | 2018-02-09 19:25 | NUR ---
CHANGE OF SHIFT: pt. awake, alert but anxious, asking when he can have Ativan and Morphine for his abdominal pain on his rt. side. pt. informed will check. IV infusing. call light within reach.
[2018-02-09] MEDS: LORazepam 2 MG/ML VIAL IVP PRN (19:49)
--- NOTE | 2018-02-09 19:50 | NUR ---
NOTES: pt. medicated for c/o abdominal pain and Ativan for his anxiety. IV site patent, IVF infusing with LR @100 cc/hr. via rt. forearm. moves all extremities, pt. wearing his own clothes and cap. cardiac pattern on sinus tach. pt. voiding per urinal and able to go restroom. off SCD's. call light within reach.
[2018-02-09 20:15] VITALS: BP_SYST 115
--- NOTE | 2018-02-09 21:30 | NUR ---
NOTES: due meds given, pt. was sleeping then, noted relief from pain. BS checked 135, no sliding scale coverage.
[2018-02-10 00:30] VITALS: BP_SYST 100
--- NOTE | 2018-02-10 00:34 | NUR ---
NOTES: pt. sleeping when checked. continue to monitor.
[2018-02-10] MEDS: MORPHINE 2 MG/ML INJ. SYRINGE IVP PRN ×5 (01:45→21:20)
--- NOTE | 2018-02-10 02:00 | NUR ---
NOTES: pt. stood up at bedside and voided. medicated with Morphine for c/o rt. sided abdominal pain. repositioned self for comfort. IVF patent.
--- NOTE | 2018-02-10 03:49 | NUR ---
NOTES: pt. HR goes up to 140-150's every time he gets up. pt. voided per urinal. pt. informed Morphine not due yet. went back to bed.
[2018-02-10] MEDS: LORazepam 2 MG/ML VIAL IVP PRN ×2 (05:44→10:05)
[2018-02-10] MEDS: LR 1,000 ML IV SCH ×2 (05:55→12:44)
--- NOTE | 2018-02-10 06:15 | NUR ---
CLOSING NOTES: complete linen changed done, medicated for abdominal pain and anxiety, up in chair for few minutes. needs attended. IVF patent. call light within reach. offered to wash up but not now. for further assistance.
--- NOTE | 2018-02-10 07:20 | NUR ---
endorsed pt. to incoming shift with nurse Ortiz.
--- NOTE | 2018-02-10 07:35 | NUR ---
OPENING NOTE: MORNING REPORT WAS TAKEN FROM GENETIC TECHNOLOGIST NURSE. PATIENT IS ALERT AND ORIENTED X4. PATIENT SITTING EATING BREAKFAST IN BED. PATIENT NOT COMPLAINING OF SHORTNESS OF BREATH. PATIENT ON ROOM AIR. IV PATENT AND INFUSING FLUIDS. PATIENT NOT COMPLAINING OF NAUSEA OR VOMITING. PATIENT NOT COMPLAINING OF RIGHT SIDED WEAKNESS. PATIENT'S STRENGTH SAME WHEN SQUEEZING MY HANDS. PATIENT COMPLAINING OF ABD PAIN. PATIENT HAS HISTORY OF SUICIDE. ASKED PATIENT IF HE HAS ANY THOUGHTS OF SUICIDE. PATIENT SAID NO. THAT WAS A LONG TIME AGO AFTER HIS DIVORCE. EDUCATED PATIENT ON IMPORTANCE OF BED ALARM BUT PATIENT REFUSED TO HAVE IT ON. PATIENT SAID HE CAN WALK AROUND WITH OUT PROBLEM. CALL LIGHT IS IN REACH AND BED IN LOWEST POSITION. WILL CONTINUE TO MONITOR.
[2018-02-10 08:04] VITALS: BP_SYST 119
[2018-02-10] MEDS: FAMOTIDINE 20 MG TABLET PO SCH ×2 (09:57→21:14)
[2018-02-10] MEDS: THIAMINE HCL 100 MG TABLET PO SCH (09:57)
[2018-02-10] MEDS: MULTIVITS,CA,MINERALS/IRON/FA 1 TABLET PO SCH (09:57)
[2018-02-10] MEDS: DOCUSATE SODIUM 250 MG CAPSULE PO SCH ×2 (09:57→21:16)
[2018-02-10] MEDS: POTASSIUM CHLORIDE 20 MEQ TAB.PRT.SR PO SCH ×2 (09:57→21:14)
[2018-02-10] MEDS: NEPHROVITE, (FOLIC ACID/VITAMIN B COMP W-C 1 TAB) PO SCH (09:57)
[2018-02-10] MEDS: LISINOPRIL 20 MG TABLET PO SCH ×2 (09:58→21:16)
[2018-02-10] MEDS: CHOLECALCIFEROL (VITAMIN D3) 2,000 UNIT TABLET PO SCH (09:58)
[2018-02-10] MEDS: chlordiazePOXIDE HCL 25 MG CAPSULE PO SCH ×2 (09:58→21:14)
--- NOTE | 2018-02-10 10:10 | NUR ---
NOTE: GAVE PATIENT MORNING MEDICATIONS. PATIENT SWALLOWED WITH OUT DIFFICULTIES. PATIENT WAS ALSO COMPLAINING OF PAIN IN SIDE AND SAID HE WAS ANXIOUS. PATIENT'S LEG SHAKING. PATIENT WANTED PAIN AND ANXIETY MEDS. EDUCATED PATIENT ON SIDE EFFECTS AND TO CALL IF HE FILLS DIZZY WHEN GETTING UP. PATIENT AGREED. WILL CONTINUE TO MONITOR.
[2018-02-10 11:58] VITALS: BP_SYST 117
--- NOTE | 2018-02-10 12:50 | NUR ---
NOTE: TOOK PATIENT'S SUGAR EARLIER AND WAS 90. NO INSULIN NEEDED. PATIENT SAID HE DOES NOT FEEL COOL OR CLAMMY OR LIGHT HEADED. JUST HUNG SOME FLUIDS BECAUSE PATIENT WAS LOW. PATIENT'S IV WAS RE TAPPED. NO SIGNS OF INFILTRATION. PATIENT WANTED ANOTHER SALAD AND MORE DRESSING. WILL LET DIETARY KNOW AND CONTINUE TO MONITOR.
--- NOTE | 2018-02-10 14:13 | NUR ---
: ASKED IF HE COULD CHANGE MORPHINE PAIN SCALE FROM 4-10 TO MODERATE OR SEVERE BUT DR SAID NO. HE DID IT LIKE THAT ON PURPOSE.
--- NOTE | 2018-02-10 14:20 | NUR ---
NOTE: PATIENT ASLEEP IN BED. MOTHER AT BEDSIDE. PATIENT HAS FLUIDS INFUSING. GOT PATIENT WARM BLANKET AND NEW SOCKS. CALLED [facility] TO CLEAN FLOOR BECAUSE URINAL SPILLED. DRIED FOR NOW. TALKED TO INSPECTOR HAIRSPRING TO SEE IF THEY SAW HIM BECAUSE ASKED. SAID THEY SAW HIM COUPLE DAYS AGO AND GAVE HIM ALL HIS RECOURSES FOR REHAB. WILL CONTINUE TO MONITOR.
--- NOTE | 2018-02-10 14:26 | NUR ---
CONSULTATION PAGED REASON FOR CONSULTATION:GRANT WAS CONSULT CALLED?Y PERSON WHO WAS NOTIFIED:JANY CONSULTING PHYSICIAN:ANDRIA VALDEZ ROTARY SAW OPERATOR SPECIALTY:SURGEON ROTARY SAW OPERATOR PHONE NUMBER:[phone] ORDERING PHYSICIAN:CHARLOTTE COLEMAN
--- NOTE | 2018-02-10 14:27 | NUR ---
CONSULTATION PAGED/CALLED Reason for Consultation: [] GRANT Person Who was Notified: [] HORACE Consulting Physician: [] DR Johann RUIZ Overhead Crane Inspector Specialty: [] GEN SURGEON Ordering Physician: [] DR Leyla FIELD
[2018-02-10 15:09] LABS: CALCIUM 8.7 mg/dL (8.4-11.0); CREATININE 0.61 mg/dL (0.55-1.30); POTASSIUM 4.2 mmol/L (3.5-5.1)
[2018-02-10 15:14] LABS: ALBUMIN 2.2 g/dL (3.4-4.8); TOTAL BILIRUBIN 4.5 mg/dL (0.0-1.0)
[2018-02-10 15:18] LABS: HEMATOCRIT 33.6 % (36-54); HEMOGLOBIN 11.3 g/dL (14.0-18.0); MEAN CORPUSCULAR HEMOGLOBIN 34 pg (27-31); MEAN CORPUSCULAR HGB CONC 34 % (32-36); MEAN CORPUSCULAR VOLUME 102 fL (79.0-98.0); PLATELET COUNT (AUTO) 184 K/uL (130-430); RED CELL DISTRIBUTION WIDTH 14.9 % (9.0-15.0); WHITE BLOOD COUNT (AUTO) 4.2 K/uL (4.8-10.8)
[2018-02-10 15:35] LABS: BAND % (MANUAL) 0 % (0-6); BASOPHILS % (MANUAL) 0 % (0-2); EOSINOPHILS % (MANUAL) 0 % (0-7); LYMPHOCYTES % (MANUAL) 23 % (20-46); MONOCYTES % (MANUAL) 20 % (0-11)
--- NOTE | 2018-02-10 16:25 | NUR ---
NOTE: PATIENT WAS COMPLAINING OF PAIN IN SIDE. GAVE PATIENT PAIN MEDICATION. GOT PATIENT SOME WATER. PATIENT LISTENING TO MUSIC IN BED. PATIENT HAS NO FURTHER REQUEST. WILL CONTINUE TO MONITOR.
[2018-02-10 16:29] VITALS: BP_SYST 103
--- NOTE | 2018-02-10 18:20 | NUR ---
CLOSING NOTE: DR CAME AND SAW PATIENT. HAD DEEP TALK WITH PATIENT. PATIENT WAS TEARING UP. PATIENT EATING DINNER. LET PATIENT KNOW PATIENT NOT DUE UNTIL 2 MORE HOURS. PATIENT ON ROOM AIR. FLUIDS ARE INFUSING. WILL CONTINUE TO MONITOR AND GIVE REPORT TO NIGHT NURSE.
--- NOTE | 2018-02-10 19:45 | NUR ---
INITIAL NOTE AT INITIAL ASSESSMENT, PATIENT IS RESTING UPRIGHT IN BED, WATCHING TV. HE IS STABLE, NO SIGNS OF RESPIRATORY DISTRESS. PATIENT VERBALIZES TOLERABLE PAIN. PLAN OF CARE FOR THE EVENING IS COMMUNICATED WITH THE PATIENT. SAFETY AND FALL PRECAUTIONS ARE IN PLACE. CALL LIGHT- TEACH BACK IS SUCCESSFUL. BED IS LOCKED, ALARMED, AND AT JEREMY LOWEST LEVEL.
[2018-02-10 19:47] VITALS: BP_SYST 120
--- NOTE | 2018-02-10 21:41 | NUR ---
NOTE PATIENT IS RESTING IN BED, STABLE, NO SIGNS OF RESPIRATORY DISTRESS. PATIENT REQUESTS FOR ATIVAN FOR ANXIETY, ATIVAN WILL BE GIVEN TO PATIENT. CALL LIGHT WITHIN REACH. BED IS LOCKED, ALARMED, AND AT THE LOWEST LEVEL.
--- NOTE | 2018-02-10 22:30 | NUR ---
ATIVAN WASTED NOTE ATIVAN BROUGHT TO THE PATIENT PER PATIENT REQUEST, AT THIS TIME, PATIENT IS SLEEPING, STABLE, NO SIGNS OF RESPIRATORY DISTRESS. PATIENT WOKEN UP, BUT VERBALIZES THAT HE NO LONGER WANTS THE ATIVAN, ATIVAN IS WASTED WITH POOL HENDRICKS. TOTAL OF 2 MG ATIVAN WASTED FOR PATIENT. CALL LIGHT WITHIN REACH. SAFETY AND FALL PRECAUTIONS ARE IN PLACE. BED IS LOCKED, ALARMED, AND AT THE LOWEST LEVEL.
--- NOTE | 2018-02-10 23:24 | NUR ---
NOTE PATIENT IS SLEEPING, STABLE, NO SIGNS OF RESPIRATORY DISTRESS. CALL LIGHT WITHIN REACH. BED IS LOCKED, ALARMED, AND AT THE LOWEST LEVEL.
[2018-02-10 23:58] VITALS: BP_SYST 117
--- NOTE | 2018-02-11 01:20 | NUR ---
NOTE PATIENT IS SLEEPING, STABLE, NO SIGNS OF RESPIRATORY DISTRESS. CALL LIGHT IS WITHIN REACH. BED IS LOCKED, ALARMED, AND AT THE LOWEST LEVEL.
[2018-02-11] MEDS: MORPHINE 2 MG/ML INJ. SYRINGE IVP PRN ×5 (03:12→22:13)
[2018-02-11] MEDS: LR 1,000 ML IV SCH ×3 (03:16→23:33)
--- NOTE | 2018-02-11 03:16 | NUR ---
NOTE PATIENT IS SLEEPING, STABLE, NO SIGNS OF RESPIRATORY DISTRESS. CALL LIGHT IS WITHIN REACH. BED IS LOCKED, ALARMED, AND AT THE LOWEST LEVEL.
--- NOTE | 2018-02-11 05:02 | NUR ---
ANXIETY NOTE AT THIS TIME, PATIENT IS REQUESTING ATIVAN FOR HIS ANXIETY. ATIVAN IS GIVEN PER MD ORDERS AT THIS TIME. PATIENT IS STABLE, NO SIGNS OF RESPIRATORY DISTRESS. CALL LIGHT WITHIN REACH. BED IS LOCKED, ALARMED, AND AT THE LOWEST LEVEL.
[2018-02-11] MEDS: LORazepam 2 MG/ML VIAL IVP PRN ×3 (05:22→16:37)
--- NOTE | 2018-02-11 06:25 | NUR ---
CLOSING NOTE PATIENT IS SLEEPING, STABLE, NO SIGNS OF RESPIRATORY DISTRESS. THROUGHOUT THE NIGHT, PATIENT HAD SOME EPISODES OF ANXIETY WHICH ATIVAN WAS GIVEN FOR PER PRN ORDERS. BLOOD SUGAR AT THIS TIME IS WNL, NO INSULIN COVERAGE IS NECESSARY PER SSI ORDERED BY MD. CALL LIGHT WITHIN REACH. BED IS LOCKED, ALARMED, AND AT THE LOWEST LEVEL. WILL CONTINUE TO MONITOR UNTIL SHIFT REPORT IS GIVEN AT BEDSIDE TO AM NURSE.
[2018-02-11 07:13] LABS: HEMATOCRIT 32.4 % (36-54); HEMOGLOBIN 10.5 g/dL (14.0-18.0); MEAN CORPUSCULAR HEMOGLOBIN 33 pg (27-31); MEAN CORPUSCULAR HGB CONC 32 % (32-36); MEAN CORPUSCULAR VOLUME 102 fL (79.0-98.0); PLATELET COUNT (AUTO) 213 K/uL (130-430); RED BLOOD CELL COUNT(AUTO) 3.17 MIL/uL (4.2-6.2); RED CELL DISTRIBUTION WIDTH 14.8 % (9.0-15.0); WHITE BLOOD COUNT (AUTO) 4.1 K/uL (4.8-10.8)
[2018-02-11 07:25] LABS: PROTHROMBIN TIME 10.6 SECS (9.5-12.5)
[2018-02-11 07:27] LABS: ALBUMIN 2.2 g/dL (3.4-4.8); CALCIUM 8.8 mg/dL (8.4-11.0); CREATININE 0.72 mg/dL (0.55-1.30); POTASSIUM 4.8 mmol/L (3.5-5.1); TOTAL BILIRUBIN 3.5 mg/dL (0.0-1.0)
--- NOTE | 2018-02-11 07:40 | NUR ---
Opening Note received report from production shift supervisor RN, pt resting in bed, A&Ox4, respirations even and unlabored on room air, pt states that he has pain 8/10 to right abdomen, will give PRN pain medication as ordered, no acute distress noted, IV site clean, dry, intact, and infusing well, SCDs in place, pt educated on use of call light and asked to call for assistance, pt verbalized understanding, call light in reach, bed in low position, bed alarm on, fall and aspiration precautions in place.
--- NOTE | 2018-02-11 07:54 | NUR ---
Pain Management/Medication pt complaint of pain / to right abdomen, pt educated on use and side effects of PRN pain medication, pt verbalized understanding, tolerated medication administration well, pt educated on use of call light and asked to call for assistance, call light in reach, bed in low position, bed alarm on, fall and aspiration precautions in place.
[2018-02-11 08:00] VITALS: BP_SYST 132
[2018-02-11 08:25] LABS: BAND % (MANUAL) 3 % (0-6); BASOPHILS % (MANUAL) 0 % (0-2); EOSINOPHILS % (MANUAL) 1 % (0-7); LYMPHOCYTES % (MANUAL) 25 % (20-46); MONOCYTES % (MANUAL) 17 % (0-11)
[2018-02-11] MEDS: MULTIVITS,CA,MINERALS/IRON/FA 1 TABLET PO SCH (08:33)
[2018-02-11] MEDS: DOCUSATE SODIUM 250 MG CAPSULE PO SCH ×2 (08:33→20:28)
[2018-02-11] MEDS: THIAMINE HCL 100 MG TABLET PO SCH (08:33)
[2018-02-11] MEDS: NEPHROVITE, (FOLIC ACID/VITAMIN B COMP W-C 1 TAB) PO SCH (08:33)
[2018-02-11] MEDS: chlordiazePOXIDE HCL 25 MG CAPSULE PO SCH ×2 (08:33→20:29)
[2018-02-11] MEDS: FAMOTIDINE 20 MG TABLET PO SCH ×2 (08:33→20:29)
[2018-02-11] MEDS: CHOLECALCIFEROL (VITAMIN D3) 2,000 UNIT TABLET PO SCH (08:33)
[2018-02-11] MEDS: LISINOPRIL 20 MG TABLET PO SCH ×2 (08:34→20:29)
[2018-02-11] MEDS: POTASSIUM CHLORIDE 20 MEQ TAB.PRT.SR PO SCH ×2 (08:34→20:28)
--- NOTE | 2018-02-11 08:34 | NUR ---
Medication pt educated on use and side effects of medications, pt verbalized understanding, tolerated medication administration well, no acute distress noted, fall and aspiration precautions in place.
--- NOTE | 2018-02-11 10:25 | NUR ---
Anxiety/Medication pt complaint of anxiety, pt educated on use and side effects of PRN ativan for anxiety, pt verbalized understanding, pt tolerated medication administration well, pt educated on use of call light and asked to call for assistance, call light in reach, bed in low position, bed alarm on, fall and aspiration precautions in place.
[2018-02-11 11:26] VITALS: BP_SYST 111
--- NOTE | 2018-02-11 11:46 | NUR ---
RN Rounds pt sleeping in bed, easily arousable to name, family at bedside, no acute distress noted, fall and aspiration precautions in place.
[2018-02-11] MEDS: ONDANSETRON HCL 4 MG/2 ML VIAL IVP PRN (13:40)
--- NOTE | 2018-02-11 13:43 | NUR ---
Pain Management/Nausea/Medication pt complaint of pain 8/10 to right abdomen, pt complaint of feeling nauseous, pt educated on use and side effects of PRN pain and nausea medication, pt verbalized understanding, tolerated medication administration well, no redness or swelling noted at IV site, pts mother at bedside, fall and aspiration precautions in place.
[2018-02-11 15:24] VITALS: BP_SYST 99
--- NOTE | 2018-02-11 15:30 | NUR ---
RN Rounds pt resting in bed, respirations even and unlabored, no acute distress noted, fall, aspiration and seizure precautions in place.
--- NOTE | 2018-02-11 16:44 | NUR ---
Anxiety/Medication pt complaint of anxiety, pt educated on breathing exercises, pt requesting PRN anxiety medication, pt educated on use and side effects of PRN ativan, BP 110/77, HR 110, respirations 16, pt tolerated medication administration well, pt educated on increased fall risk with ativan administration, pt verbalized understanding, call light in reach, bed in low position, bed alarm on, fall, aspiration, and seizure precautions in place.
--- NOTE | 2018-02-11 17:19 | NUR ---
Notes pt resting in bed, blood glucose 132 at this time, no insulin per sliding scale indicated, pt reports that anxiety and pain are controlled, fall, aspiration, and seizure precautions in place.
--- NOTE | 2018-02-11 18:25 | NUR ---
Pain Management/Medication pt complaint of pain 8/10 to right abdomen, pt educated on use and side effects of PRN pain medication, pt verbalized understanding, vital signs stable, tolerated medication administration well, no acute distress noted, fall, aspiration, and seizure precautions in place.
--- NOTE | 2018-02-11 19:10 | NUR ---
Closing Note pt resting in bed, A&Ox4, respirations even and unlabored on room air, pt reports pain controlled at this time, no acute distress noted, IV site clean, dry, and intact, pt educated on use and purpose of SCDs, pt refusing SCDs at this time, pt educated on use of call light and asked to call for assistance, pt verbalized understanding, call light in reach, bed in low position, bed alarm on, fall, aspiration, and seizure precautions in place.
--- NOTE | 2018-02-11 19:45 | NUR ---
INITIAL NOTE / BED ALARM REFUSAL AT INITIAL ASSESSMENT, PATIENT IS RESTING IN BED, STABLE, NO SIGNS OF RESPIRATORY DISTRESS. PATIENT VERBALIZES TOLERABLE PAIN. PLAN OF CARE FOR THE EVENING IS COMMUNICATED WITH THE PATIENT. SAFETY AND FALL PRECAUTIONS ARE IN PLACE. CALL LIGHT- TEACH BACK IS SUCCESSFUL. PATIENT IS REFUSING BED ALARM DESPITE EDUCATION ATTEMPTS, ACCORDING TO [place] FALL SCALE HE IS NOT A FALL RISK. WILL MONITOR CLOSELY THROUGHOUT THE SHIFT FOR INCREASE FALL RISK. BED IS LOCKED, AND AT THE LOWEST LEVEL.
[2018-02-11 19:50] VITALS: BP_SYST 126
[2018-02-11] MEDS: INSULIN REGULAR, HUMAN 100 UNITS/ML, 10 ML VIAL (novoLIN R) SUBCUT PRN (20:36)
--- NOTE | 2018-02-11 21:43 | NUR ---
NOTE PATIENT IS RESTING IN BED, STABLE, NO SIGNS OF RESPIRATORY DISTRESS. PATIENT VERBALIZES TOLERABLE PAIN. CALL LIGHT IS WITHIN REACH. BED IS LOCKED, ALARMED, AND AT THE LOWEST LEVEL.
--- NOTE | 2018-02-11 23:40 | NUR ---
NOTE PATIENT IS SLEEPING, STABLE, NO SIGNS OF RESPIRATORY DISTRESS. CALL LIGHT IS WITHIN REACH. BED IS LOCKED, ALARMED, AND AT THE LOWEST LEVEL.
[2018-02-12 01:07] VITALS: BP_SYST 100
[2018-02-12] MEDS: LORazepam 2 MG/ML VIAL IVP PRN ×4 (01:11→23:35)
--- NOTE | 2018-02-12 01:36 | NUR ---
ANXIETY NOTE PATIENT IS RESTING UPRIGHT IN BED, HE IS STABLE, NO SIGNS OF RESPIRATORY DISTRESS. PATIENT IS REQUESTING FOR ANXIETY MEDICATION, PRN MEDICATION FOR ANXIETY WILL BE GIVEN AT THIS TIME. CALL LIGHT IS WITHIN REACH. BED IS LOCKED, ALARMED, AND AT THE LOWEST LEVEL.
--- NOTE | 2018-02-12 02:54 | NUR ---
NOTE PATIENT IS SLEEPING, STABLE, NO SIGNS OF RESPIRATORY DISTRESS. CALL LIGHT IS WITHIN REACH. BED IS LOCKED, ALARMED, AND AT THE LOWEST LEVEL.
[2018-02-12] MEDS: MORPHINE 2 MG/ML INJ. SYRINGE IVP PRN ×4 (02:59→20:34)
--- NOTE | 2018-02-12 04:31 | NUR ---
NOTE PATIENT IS SLEEPING, STABLE, NO SIGNS OF RESPIRATORY DISTRESS. CALL LIGHT WITHIN REACH. BED IS LOCKED, AND AT THE LOWEST LEVEL.
--- NOTE | 2018-02-12 06:30 | NUR ---
CLOSING NOTE AT THIS TIME, PATIENT IS RESTING IN BED, STABLE, NO SIGNS OF RESPIRATORY DISTRESS. PATIENT VERBALIZES TOLERABLE PAIN AT THIS TIME. WILL CONTINUE TO MONITOR UNTIL SHIFT REPORT IS GIVEN AT BEDSIDE TO AM NURSE. CALL LIGHT WITHIN REACH. BED IS LOCKED, AND AT THE LOWEST LEVEL.
[2018-02-12 07:46] LABS: ALBUMIN 2.1 g/dL (3.4-4.8); CALCIUM 8.6 mg/dL (8.4-11.0); CREATININE 0.68 mg/dL (0.55-1.30); TOTAL BILIRUBIN 3.3 mg/dL (0.0-1.0)
[2018-02-12 08:00] VITALS: BP_SYST 114
--- NOTE | 2018-02-12 08:00 | NUR ---
Opening Note/Refuse bed alarm received report from assistant casino shift manager RN, pt resting in bed, A&Ox4, respirations even and unlabored on room air, pt reports pain is controlled at this time, no acute distress noted, IV site clean, dry, and intact, pt educated on use and purpose of SCDs, pt refusing SCDs at this time, pt educated on use of call light and asked to call for assistance, pt verbalized understanding, call light in reach, pt educated on use of bed alarm for pt safety, pt refusing bed alarm, bed in low position, side rails padded, fall, seizure, and aspiration precautions in place.
[2018-02-12] MEDS: NEPHROVITE, (FOLIC ACID/VITAMIN B COMP W-C 1 TAB) PO SCH (08:25)
[2018-02-12] MEDS: DOCUSATE SODIUM 250 MG CAPSULE PO SCH ×2 (08:26→20:33)
[2018-02-12] MEDS: THIAMINE HCL 100 MG TABLET PO SCH (08:26)
[2018-02-12] MEDS: LISINOPRIL 20 MG TABLET PO SCH ×2 (08:26→20:33)
[2018-02-12] MEDS: chlordiazePOXIDE HCL 25 MG CAPSULE PO SCH ×2 (08:26→20:32)
[2018-02-12] MEDS: MULTIVITS,CA,MINERALS/IRON/FA 1 TABLET PO SCH (08:26)
[2018-02-12] MEDS: POTASSIUM CHLORIDE 20 MEQ TAB.PRT.SR PO SCH ×2 (08:27→20:39)
[2018-02-12] MEDS: CHOLECALCIFEROL (VITAMIN D3) 2,000 UNIT TABLET PO SCH (08:27)
[2018-02-12] MEDS: FAMOTIDINE 20 MG TABLET PO SCH ×2 (08:27→20:33)
--- NOTE | 2018-02-12 08:40 | NUR ---
Anxiety/Medication pt complaint of anxiety, pt educated on use and side effects of PRN ativan and all medications, pt verbalized understanding, tolerated medication administration well, vital signs stable, no acute distress noted, pt educated on fall safety precautions, pt verbalized understanding, call light in reach, bed in low position, fall, seizure, and aspiration precautions in place.
--- NOTE | 2018-02-12 08:45 | NUR ---
MD Rounds Dr. Schmidt at bedside speaking with pt, orders for CMP tomorrow morning, orders verified with read back.
[2018-02-12] MEDS: LR 1,000 ML IV SCH (10:33)
--- NOTE | 2018-02-12 10:35 | NUR ---
IV Fluids pt educated on use and side effects of IV fluid administration, new IV fluids hung at this time, no redness or swelling noted at IV site, fall, seizure, and aspiration precautions in place.
--- NOTE | 2018-02-12 10:47 | NUR ---
Pain Management/Medication pt complaint of pain 12/30 to right abdomen, pt educated on use and side effects of PRN pain medication, pt verbalized understanding, pt tolerated medication administration well, no acute distress noted, pt educated on use of bed alarm for pt safety, pt refusing bed alarm, call light in reach, bed in low position, fall, seizure, and aspiration precautions in place. Addendum: 02/12/18 at 1053 by Michelle Dasilva RN add: vital signs stable, BP 110/72, HR 93, respirations 16
--- NOTE | 2018-02-12 11:50 | NUR ---
RN Rounds pt resting in bed, mother at bedside, pt reports pain and anxiety are controlled, no acute distress noted, fall, seizure, and aspiration precautions in place.
[2018-02-12 12:00] VITALS: BP_SYST 125
--- NOTE | 2018-02-12 13:45 | NUR ---
RN Rounds pts mother at bedside, pt requesting cool pack for pain management, pt provided with cool pack, pt resting comfortably, no acute distress noted, fall, seizure, and aspiration precautions in place.
--- NOTE | 2018-02-12 15:01 | NUR ---
Pain Management/Medication pt complaint of pain 8/10 to right abdomen, pt educated on use and side effects of PRN pain medication, pt verbalized understanding, vital signs stable, pt tolerated medication administration well, no acute distress noted, call light in reach, bed in low position, fall, seizure, and aspiration precautions in place.
[2018-02-12 16:00] VITALS: BP_SYST 127
--- NOTE | 2018-02-12 16:55 | NUR ---
Anxiety/Medication pt complaint of anxiety, PRN ativan indicated, pt educated on use and side effects of PRN ativan, pt verbalized understanding, vital signs stable, pt tolerated medication administration well, pts mother at bedside, fall, seizure, and aspiration precautions in place.
--- NOTE | 2018-02-12 19:10 | NUR ---
Closing Note pt sleeping in bed, easily arousable to name, A&Ox4, respirations even and unlabored on room air, pt reports pain controlled at this time, no acute distress noted, IV site clean, dry, intact, and infusing well, pt educated on use of call light and asked to call for assistance, pt verbalized understanding, call light in reach, pt educated on use of bed alarm for pt safety, pt refusing bed alarm at this time, bed in low position, fall, seizure, and aspiration precautions in place, care endorsed to maintenance technician 2nd shift RN.
--- NOTE | 2018-02-12 19:15 | NUR ---
Initial Notes Received patient in bed awake alert oriented x 4. No s/s of any distress noted. IV noted to R a/c g 20 no infiltrate and with good blood return. All extremities are strong needs assistance to ambulate. Discuss plan of care with patient and verbalize understanding. Call light in reach, will cont to monitor.
[2018-02-12 19:18] VITALS: BP_SYST 123
--- NOTE | 2018-02-12 21:15 | NUR ---
Rounds Patient is resting in bed at this time. No s/s of any distress noted. Call light in reach, will cont to monitor.
--- NOTE | 2018-02-12 23:15 | NUR ---
Rounds Assisted to use urinal. No s/s of any distress noted. Call light in reach, will cont to monitor.
--- NOTE | 2018-02-12 23:58 | NUR ---
Episode of hallucination Patient was having episode of anxiety and hallucination. With a crying like voice pointing at the walker moving to hit him. Pearson patient to reality and gave reassurance that he will be safe in the hospital. Admin Ativan as ordered. Will cont to monitor.
--- NOTE | 2018-02-13 01:00 | NUR ---
Rounds Patient is comfortably resting in bed at this time. No s/s of any distress noted. Call light in reach, will cont to monitor.
--- NOTE | 2018-02-13 03:00 | NUR ---
Rounds Patient is resting comfortably in bed at this time. No c/o pain and no s/s of any distress noted. Call light in reach, will cont to monitor.
[2018-02-13] MEDS: MORPHINE 2 MG/ML INJ. SYRINGE IVP PRN ×5 (04:18→20:56)
[2018-02-13] MEDS: LR 1,000 ML IV SCH ×3 (04:26→16:02)
[2018-02-13] MEDS: LORazepam 2 MG/ML VIAL IVP PRN ×3 (06:06→18:15)
[2018-02-13 06:38] LABS: CALCIUM 8.4 mg/dL (8.4-11.0); CREATININE 0.58 mg/dL (0.55-1.30); POTASSIUM 3.8 mmol/L (3.5-5.1); TOTAL BILIRUBIN 2.6 mg/dL (0.0-1.0)
--- NOTE | 2018-02-13 07:07 | NUR ---
End of shift notes Patient is resting comfortably at this time. No c/o pain and no s/s of any shift noted. All needs met and anticipated by noc shift staff. Endorse to incoming nurse.
--- NOTE | 2018-02-13 07:45 | NUR ---
RN OPENING NOTE PT AA/O X 4, SPEAKS SOMALI AND IS COOPERATIVE. VS STABLE ON ROOM AIR, BREATHING EVEN AND UNLABORED, BREATH SOUNDS CLEAR IN ALL LOBES. RFA 20G ANGIOCATH PATENT, DRESSING DRY AND INTACT. PT IS A FALL LIST DUE TO MEDICATION EFFECTS, BUT PT REFUSES BED ALARM. BED IN LOWEST POSITION AND CALL LIGHT WITHIN REACH.
[2018-02-13 08:00] VITALS: BP_SYST 142
[2018-02-13] MEDS: DOCUSATE SODIUM 250 MG CAPSULE PO SCH ×2 (08:19→20:53)
[2018-02-13] MEDS: LISINOPRIL 20 MG TABLET PO SCH ×2 (08:19→20:54)
[2018-02-13] MEDS: FAMOTIDINE 20 MG TABLET PO SCH ×2 (08:19→20:54)
[2018-02-13] MEDS: chlordiazePOXIDE HCL 25 MG CAPSULE PO SCH ×2 (08:20→20:53)
[2018-02-13] MEDS: MULTIVITS,CA,MINERALS/IRON/FA 1 TABLET PO SCH (08:20)
[2018-02-13] MEDS: THIAMINE HCL 100 MG TABLET PO SCH (08:20)
[2018-02-13] MEDS: POTASSIUM CHLORIDE 20 MEQ TAB.PRT.SR PO SCH ×2 (08:20→20:53)
[2018-02-13] MEDS: NEPHROVITE, (FOLIC ACID/VITAMIN B COMP W-C 1 TAB) PO SCH (08:20)
[2018-02-13] MEDS: CHOLECALCIFEROL (VITAMIN D3) 2,000 UNIT TABLET PO SCH (08:20)
--- NOTE | 2018-02-13 10:00 | NUR ---
RN ROUNDS PT IS RESTING IN BED AND STATED THE MORPHINE LOWERED HIS PAIN FROM AN 8 TO A 5, AND THAT ALL HIS NEEDS HAVE BEEN MET AT THIS TIME
[2018-02-13 12:00] VITALS: BP_SYST 128
--- NOTE | 2018-02-13 12:00 | NUR ---
RN ROUNDS PT IS SITTING UP IN BED COMPLAINING OF PAIN 11/29. MORPHINE ADMINISTERED ORDERED PRN
--- NOTE | 2018-02-13 14:00 | NUR ---
RN ROUNDS PT RESTING IN BED AND APPEARS TO BE SLEEPING WITH NO S/S OF DISTRESS.
--- NOTE | 2018-02-13 14:29 | NUR ---
DC Planning: Per RESHMA Agrawal and POOL Adams: MRCP procedure is delay dt pt. had breakfast at 8am. MRCP is rescheduled for tomorrow. Pt is to be npo after MN tonight.
[2018-02-13] MEDS: ONDANSETRON HCL 4 MG/2 ML VIAL IVP PRN (15:19)
[2018-02-13 16:00] VITALS: BP_SYST 132
--- NOTE | 2018-02-13 16:00 | NUR ---
POOL ROUNDS/ATIVAN ADMINISTERED FOR ANXIETY Addendum: 02/13/18 at 1823 by Bryan Batista RN CORRECTION: MORPHINE WAS ADMINISTERED FOR PAIN, NOT ATIVAN
--- NOTE | 2018-02-13 18:15 | NUR ---
RN ROUNDS/ATIVAN ADMINISTERED FOR ANXIETY
--- NOTE | 2018-02-13 19:10 | NUR ---
ENDORSEMENT REPORT ENDORSED TO POOL CHAPMAN AT BEDSIDE
[2018-02-13 19:30] VITALS: BP_SYST 117
--- NOTE | 2018-02-13 19:30 | NUR ---
Initial PM Note Pt was received lying comfortably in bed fully awake, alert and oriented x3. Speech is clear and pt is able to make his needs known. No c/o pain or discomfort at this time. Skin is warm and dry to touch. No signs or symptoms of hypoglycemia or hyperglycemia noted. Pt was instructed on nothing by mouth after midnight for MRI MRCP in AM and pt verbalized understanding. IVF of LR is infusing well in RFA at 100ml/hr without any signs of infiltration. Pt was instructed to call for assistance as needed and pt verbalized understanding. Call light is with pt and bed alarm is on. Will continue to monitor pt.
--- NOTE | 2018-02-13 20:56 | NUR ---
Pain Medication Morphine 2mg was given IV for c/o Rt abdominal pain with relief. IVF is infusing well in RFA. Pt declined bed alarm. Pt was instructed to call for assistance as needed and before getting OOB if dizzy and pt verbalized understanding.
[2018-02-13] MEDS: INSULIN REGULAR, HUMAN 100 UNITS/ML, 10 ML VIAL (novoLIN R) SUBCUT PRN (20:58)
--- NOTE | 2018-02-13 20:58 | NUR ---
Blood Sugar Accucheck 194 and 2 units Regular Insulin given SQ. Skin remains warm and dry to touch. Pt ate 100% HS snacks of 1/2 turkey [place] and 2 cups orange juice. HS snacks per pt's request.
--- NOTE | 2018-02-13 22:30 | NUR ---
Rounds Pt is sleeping without any distress noted. IVF is infusing well in RFA.
[2018-02-14] VITALS: BP_SYST 124
[2018-02-14] MEDS: LORazepam 2 MG/ML VIAL IVP PRN ×2 (00:07→20:16)
--- NOTE | 2018-02-14 00:07 | NUR ---
Anxiety Ativan 1mg was given IV per pt's request for c/o anxiety with relief. IVF is infusing well in RFa. Pt declined bed alarm.
--- NOTE | 2018-02-14 02:00 | NUR ---
Rounds Pt is sleeping without any distress noted. IVF is infusing well in RFA. Call light is with pt.
[2018-02-14] MEDS: LR 1,000 ML IV SCH ×3 (02:28→21:31)
--- NOTE | 2018-02-14 04:00 | NUR ---
Rounds Pt is sleeping comfortably in bed. Fall and safety precautions are in place. Call light is with pt and IVF is infusing well in RFA.
--- NOTE | 2018-02-14 06:30 | NUR ---
Closing Note Pt is resting quietly in bed. No c/o pain or discomfort. IVF is infusing well in RFA. Will endorse to day shift nurse.
[2018-02-14 08:00] VITALS: BP_SYST 109
--- NOTE | 2018-02-14 08:00 | NUR ---
initial notes rec patient awake with hob elevated with ivf infusing well on the r forearm. no infiltration noted. deneis pain at this time. npo for hida scan today. bed in low position and side rails up and locked. call light within reached and knows when to call for assistance.
--- NOTE | 2018-02-14 10:00 | NUR ---
rounds npo maintained for the mrcp and denies pain at this time.ambulates to the br with min assists and zena well. call light within reached.
--- NOTE | 2018-02-14 12:00 | NUR ---
rounds pt still waiting for mrcp to be done.npo maintained.
[2018-02-14 12:40] VITALS: BP_SYST 111
--- NOTE | 2018-02-14 13:30 | NUR ---
[facility] accucheck was done and no hypo hyperglycenic reaction reaction noted.
--- NOTE | 2018-02-14 15:05 | NUR ---
Nutrition F/U Admitting Diagnosis Acute Pancreatitis Reviewed Pertinent Medical/Surgical Hx Medical Record Patient Patient's mother Medical History Comment: Pt found w/: Acute Alcoholic Gastritis/Esophagitis, Atypical CP, Severe Hypokalemia, Fatty liver, HTN, DM, Peripheral neuropathy, Alcoholism, Anemia and thrombocytopenia per MD notes. Per GI MD notes 02/14/18: acute alcoholic hepatitis, acute alcoholic pancreatic cholelithiasis, less likely cause for pancreatitis, jaundice per MD notes Subjective Information Pt seen resting in bed, seemingly irritated at time of RD visit. Pt threatened to have his mom buy him foods to eat although he had been NPO for pending MRCP. RD informed pt's primary RN. Pt reported that he has been having nausea today too. Current Diet Order/Nutrition Support NPO x0 days Patient/Significant Other Able To Verbalize Education Provided Not Indicated Pertinent Medications VIT D, nephrovite, thiamine, theragran-M, zofran, k-dur, SSI, colace Pertinent Labs BG 103 H, POC BG 101 H, ALB 2 L, H/H 10.5 L/32.4 L, WBC 4.1 L, TG 159 H, Na 135 L, BUN 6 L Height (Feet) 5 feet Height (Inches) 8.00 inches Weight (Pounds) 150 pounds (02/06/18) Weight (Calculated Kilograms) 68.813621 kilograms Patient Weight 68.039 kg Body Mass Index 22.80 kg/m2 %IBW 97 [place]/Adjusted Body Weight 154 lb, 70 kg Recent Weight Change Yes - per pt Weight Status Appropriate Last BM 02/09/18 x1 Food Allergies Yes - lactose-containing food per pt Usual Diet At Home regular diet per pt Skin Integrity Comment: Lino scale: 21; no skin issues noted Current % PO Good -- 84% average x10 meals Estimated Energy Expenditure (kcals/day) 2987-0152 kcal/day (30-35 kcal/kg CBW for maintenance) Estimated Protein Required (g/day) 68-102 gm/day (1-1.5 gm/kg CBW for acute hepatitis) Estimated Fluid Required (l/day) 2.4 L/day (35 ml/kg CBW for maintenance) Problem/Etiology/Signs/Symptoms Inadequate nutritional intake related to behavioral factors as evidenced by pt's report of poor oral intake d/t depression and replacing meals w/ alcohol intake. *ongoing Expected Outcomes/Goals Monitor advancement of diet, and increase in oral intake w/ goal of pt meeting at least 75% of estimated nutritional needs, labs trending WNL, normal GI function, skin integrity/wt maintenance. Dietitian Recommendations *Consider advance to [facility], cardiac diet if/when medically appropriate Follow Up Moderate Risk: F/U in 3-5 days Addendum: 02/14/18 at [address] G [address] CORRECTION: Follow Up High Risk: F/U in 2-3 days
--- NOTE | 2018-02-14 15:12 | NUR ---
Dietitian Recommendations *Consider advance to [facility], cardiac diet if/when medically appropriate LP, RD Please refer to Nutrition F/U for details.
--- NOTE | 2018-02-14 15:30 | NUR ---
rounds pt was back from mri via wheelchair and eating late lunch. denies pain at this time.
[2018-02-14] MEDS: POTASSIUM CHLORIDE 20 MEQ TAB.PRT.SR PO SCH ×2 (15:55→21:27)
[2018-02-14] MEDS: DOCUSATE SODIUM 250 MG CAPSULE PO SCH ×2 (15:55→21:26)
[2018-02-14] MEDS: MULTIVITS,CA,MINERALS/IRON/FA 1 TABLET PO SCH (15:56)
[2018-02-14] MEDS: chlordiazePOXIDE HCL 25 MG CAPSULE PO SCH ×2 (15:56→21:27)
[2018-02-14] MEDS: THIAMINE HCL 100 MG TABLET PO SCH (15:57)
[2018-02-14] MEDS: FAMOTIDINE 20 MG TABLET PO SCH ×2 (15:57→21:27)
[2018-02-14] MEDS: CHOLECALCIFEROL (VITAMIN D3) 2,000 UNIT TABLET PO SCH (15:57)
[2018-02-14] MEDS: NEPHROVITE, (FOLIC ACID/VITAMIN B COMP W-C 1 TAB) PO SCH (15:57)
[2018-02-14] MEDS: LISINOPRIL 20 MG TABLET PO SCH ×2 (16:07→21:27)
--- NOTE | 2018-02-14 16:15 | NUR ---
rounds due am meds were given post mrcp test. iv was resumed on the r forearm lr at 100 cc/hr. no infiltration noted .dr noble was called to verify parameters for pain med. awaiting to call back.
[2018-02-14 16:40] VITALS: BP_SYST 120
[2018-02-14] MEDS: INSULIN REGULAR, HUMAN 100 UNITS/ML, 10 ML VIAL (novoLIN R) SUBCUT PRN ×2 (17:30→21:29)
[2018-02-14] MEDS ORDERED: MORPHINE 2 MG/ML INJ. SYRINGE IVP PRN (17:45)
[2018-02-14] MEDS: MORPHINE 2 MG/ML INJ. SYRINGE IVP PRN ×2 (18:28→22:33)
--- NOTE | 2018-02-14 18:30 | NUR ---
closing notes pt is resting quietly medicated with morphine and zofran as ordered. no hypo hyperglycemic reaction noted. call light within reached and knows when to call for assistance.
[2018-02-14] MEDS: ONDANSETRON HCL 4 MG/2 ML VIAL IVP PRN ×2 (18:36→22:32)
[2018-02-14 20:00] VITALS: BP_SYST 135
--- NOTE | 2018-02-14 20:15 | NUR ---
Patient awake alert sitting on the bedside on room air 02 SAT 96 % asking for ATIVAN .
--- NOTE | 2018-02-14 22:52 | NUR ---
DR RUIZ here to see patient & at the bedside .
--- NOTE | 2018-02-14 22:54 | NUR ---
LORAZEPAM 1 MG IVP administer for anxiety & helpful .
--- NOTE | 2018-02-14 23:12 | NUR ---
ZOFRAN 4 MG IVP administer for GI upset & helpful , patient Resting .
--- NOTE | 2018-02-14 23:12 | NUR ---
MORPHINE SULFATE 2 MFG IVP ADMINISTER FOR GENERAL DISCOMFORT 11/29 & HELPFUL .
[2018-02-14 23:50] VITALS: BP_SYST 100
--- NOTE | 2018-02-15 03:55 | NUR ---
Hourly Rounding patient Resting call carpenter with patient chest movement symmetrical unlabored .
[2018-02-15] MEDS: ONDANSETRON HCL 4 MG/2 ML VIAL IVP PRN ×3 (04:14→17:05)
[2018-02-15] MEDS: MORPHINE 2 MG/ML INJ. SYRINGE IVP PRN ×5 (04:15→21:11)
--- NOTE | 2018-02-15 04:28 | NUR ---
PATIENT OUT OF BED ASSIST FOR BED BATH AMBULATES FALL MEASURES IMPLEMENTED & EFFECTIVE .
[2018-02-15 06:15] LABS: ALBUMIN 2.2 g/dL (3.4-4.8); CALCIUM 8.3 mg/dL (8.4-11.0); CREATININE 0.79 mg/dL (0.55-1.30); POTASSIUM 3.6 mmol/L (3.5-5.1); TOTAL BILIRUBIN 2.5 mg/dL (0.0-1.0)
[2018-02-15 06:24] LABS: HEMATOCRIT 30.8 % (36-54); HEMOGLOBIN 10.3 g/dL (14.0-18.0); MEAN CORPUSCULAR HEMOGLOBIN 35 pg (27-31); MEAN CORPUSCULAR HGB CONC 34 % (32-36); MEAN CORPUSCULAR VOLUME 104 fL (79.0-98.0); PLATELET COUNT (AUTO) 366 K/uL (130-430); RED BLOOD CELL COUNT(AUTO) 2.97 MIL/uL (4.2-6.2); RED CELL DISTRIBUTION WIDTH 15.1 % (9.0-15.0)
--- NOTE | 2018-02-15 07:47 | NUR ---
Initial notes: Patient on bed awake, alert and oriented. Ambulatory. Stable. I.V. access patent. Safety and seizure precaution in placed. Report received at bedside.
[2018-02-15 07:48] VITALS: BP_SYST 128
[2018-02-15] MEDS: MULTIVITS,CA,MINERALS/IRON/FA 1 TABLET PO SCH (08:05)
[2018-02-15] MEDS: THIAMINE HCL 100 MG TABLET PO SCH (08:05)
[2018-02-15] MEDS: POTASSIUM CHLORIDE 20 MEQ TAB.PRT.SR PO SCH ×2 (08:06→21:05)
[2018-02-15] MEDS: DOCUSATE SODIUM 250 MG CAPSULE PO SCH ×2 (08:06→21:05)
[2018-02-15] MEDS: FAMOTIDINE 20 MG TABLET PO SCH ×2 (08:06→21:05)
[2018-02-15] MEDS: CHOLECALCIFEROL (VITAMIN D3) 2,000 UNIT TABLET PO SCH (08:06)
[2018-02-15] MEDS: chlordiazePOXIDE HCL 25 MG CAPSULE PO SCH (08:06)
[2018-02-15] MEDS: NEPHROVITE, (FOLIC ACID/VITAMIN B COMP W-C 1 TAB) PO SCH (08:07)
[2018-02-15] MEDS: LISINOPRIL 20 MG TABLET PO SCH ×2 (08:07→21:00)
[2018-02-15 08:25] LABS: ATYPICAL LYMPHOCYTES % 3 % (0-0); BAND % (MANUAL) 1 % (0-6); BASOPHILS % (MANUAL) 0 % (0-2); EOSINOPHILS % (MANUAL) 1 % (0-7); LYMPHOCYTES % (MANUAL) 20 % (20-46); MONOCYTES % (MANUAL) 12 % (0-11)
--- NOTE | 2018-02-15 08:27 | NUR ---
rounds: patient on bed sitting. eating breakfast meal. no distress noted. morning meds given and compliant.
[2018-02-15] MEDS: LR 1,000 ML IV SCH ×2 (09:12→17:55)
[2018-02-15] MEDS: INSULIN REGULAR, HUMAN 100 UNITS/ML, 10 ML VIAL (novoLIN R) SUBCUT PRN ×3 (11:50→21:31)
--- NOTE | 2018-02-15 11:57 | NUR ---
rounds: patient on bed sleeping. no distress noted.
[2018-02-15 12:41] VITALS: BP_SYST 107
--- NOTE | 2018-02-15 13:03 | NUR ---
rounds: patient complained of having a nausea. Zofran given thru ivp. mother at bedside. due pain meds also given.
--- NOTE | 2018-02-15 15:45 | NUR ---
rounds: patient resting. no distress noted.
[2018-02-15 16:54] VITALS: BP_SYST 116
[2018-02-15] MEDS ORDERED: LORazepam 1 MG TABLET PO PRN (17:45)
[2018-02-15] MEDS: AMPICILLIN SODIUM/SULBACTAM NA 1.5 GM in NS 50 ML IV SCH ×2 (17:55→23:23)
--- NOTE | 2018-02-15 18:01 | NUR ---
rounds: patient sitting on bed eating dinner. no distress noted.
--- NOTE | 2018-02-15 18:32 | NUR ---
Closing notes: Patient on bed watching t.v. Stable. Needs attended. Safety and seizure precaution in placed. Call light within reach. Report will be given to slot shift manager.
--- NOTE | 2018-02-15 19:30 | NUR ---
CHANGE OF SHIFT: pt. awake, alert, oriented, watching tv at this time. IVF on rt. forearm with LR @ 60 cc/hr. still c/o rt. sided abdominal pain and being medicated every 4 hrs as needed. communication board updated. call light within reach.
[2018-02-15 20:00] VITALS: BP_SYST 108
--- NOTE | 2018-02-15 21:15 | NUR ---
NOTES: medicated with Morphine for c/o rt. sided abdominal pain. due meds given. IVF continuous @ 60 cc/hr. pt. needs attended. call light within reach.
[2018-02-16] VITALS: BP_SYST 117
[2018-02-16] MEDS: MORPHINE 2 MG/ML INJ. SYRINGE IVP PRN ×6 (01:40→21:47)
--- NOTE | 2018-02-16 01:40 | NUR ---
NOTES: pt. been sleeping at intervals. awakened and c/o rt. sided abdominal pain and medicated. voiding per urinal with large amts. of urine.
--- NOTE | 2018-02-16 03:13 | NUR ---
NOTES: pt. awakened with the IV alarm, resting at this time. condition unchanged.
[2018-02-16] MEDS: AMPICILLIN SODIUM/SULBACTAM NA 1.5 GM in NS 50 ML IV SCH ×4 (05:36→23:58)
--- NOTE | 2018-02-16 05:45 | NUR ---
NOTES: pt. awake already and wants something for pain and medicated. IV antibiotic due given and blood sugar checked 141, no sliding scale coverage needed.
--- NOTE | 2018-02-16 06:45 | NUR ---
CLOSING NOTES; pt. remains awake, noted relief from pain. IVF patent, due po med given. for further care and assistance.
[2018-02-16 06:54] LABS: HEMOGLOBIN 10.5 g/dL (14.0-18.0)
[2018-02-16 07:01] LABS: HEMATOCRIT 32.6 % (36-54); MEAN CORPUSCULAR HEMOGLOBIN 34 pg (27-31); MEAN CORPUSCULAR HGB CONC 32 % (32-36); MEAN CORPUSCULAR VOLUME 104 fL (79.0-98.0); PLATELET COUNT (AUTO) 337 K/uL (130-430); RED BLOOD CELL COUNT(AUTO) 3.13 MIL/uL (4.2-6.2); RED CELL DISTRIBUTION WIDTH 14.6 % (9.0-15.0)
[2018-02-16 07:13] LABS: ALBUMIN 2.1 g/dL (3.4-4.8); BILIRUBIN,DIRECT 1.9 mg/dL (0.0-0.3); CALCIUM 8.4 mg/dL (8.4-11.0); CREATININE 0.7 mg/dL (0.55-1.30); POTASSIUM 3.5 mmol/L (3.5-5.1)
--- NOTE | 2018-02-16 07:30 | NUR ---
endorsed pt. to incoming shift with nurse Noguera
--- NOTE | 2018-02-16 07:35 | NUR ---
Initial notes: Patient on bed awake, alert and oriented. Stable. I.V. access patent. Safety and seizure precaution in placed. Call light within reach. Report received at bedside.
[2018-02-16 08:00] VITALS: BP_SYST 138
[2018-02-16 08:00] LABS: BAND % (MANUAL) 3 % (0-6)
[2018-02-16 08:01] LABS: BASOPHILS % (MANUAL) 0 % (0-2); EOSINOPHILS % (MANUAL) 0 % (0-7); LYMPHOCYTES % (MANUAL) 23 % (20-46); MONOCYTES % (MANUAL) 2 % (0-11)
[2018-02-16] MEDS: DOCUSATE SODIUM 250 MG CAPSULE PO SCH ×2 (09:37→21:15)
[2018-02-16] MEDS: LISINOPRIL 20 MG TABLET PO SCH ×2 (09:37→21:16)
[2018-02-16] MEDS: THIAMINE HCL 100 MG TABLET PO SCH (09:37)
[2018-02-16] MEDS: NEPHROVITE, (FOLIC ACID/VITAMIN B COMP W-C 1 TAB) PO SCH (09:38)
[2018-02-16] MEDS: MULTIVITS,CA,MINERALS/IRON/FA 1 TABLET PO SCH (09:38)
[2018-02-16] MEDS: CHOLECALCIFEROL (VITAMIN D3) 2,000 UNIT TABLET PO SCH (09:38)
[2018-02-16] MEDS: FAMOTIDINE 20 MG TABLET PO SCH ×2 (09:38→21:15)
[2018-02-16] MEDS: POTASSIUM CHLORIDE 20 MEQ TAB.PRT.SR PO SCH ×2 (09:38→21:15)
--- NOTE | 2018-02-16 09:45 | NUR ---
rounds: patient sitting on the bed. no distress noted. morning meds given and compliant.
[2018-02-16] MEDS: LR 1,000 ML IV SCH (11:46)
--- NOTE | 2018-02-16 11:53 | NUR ---
rounds: patient sleeping no distress noted.
[2018-02-16] MEDS: ONDANSETRON HCL 4 MG/2 ML VIAL IVP PRN ×2 (12:39→17:34)
[2018-02-16 12:49] VITALS: BP_SYST 126
--- NOTE | 2018-02-16 14:33 | NUR ---
DC PLANNING Called & discussed dc plan w Dr Mccoy. Gave ph order to dc home if ok w Dr Schmidt, states will be here in about an hour. Updated pt's nurse, Janae, states she will call Dr Schmidt.
--- NOTE | 2018-02-16 14:50 | NUR ---
Conversation with Dr. Schmidt: Dr. Schmidt said he will not give his clearance for patient to go home. Lipase and Bilirubin was high. He needs a clearance from Dr. Mccoy and Psych for PTSD clearance so he can do surgery tomorrow.. Will inform Dr. Mccoy, will be here an hour per Marleny.
[2018-02-16 16:00] VITALS: BP_SYST 139
--- NOTE | 2018-02-16 16:25 | NUR ---
CONSULTATION: REASON FOR CONSULT: PTSD CLEARANCE FOR SURGERY CONSULTING PHYSICIAN: DR HERNANDEZ, SAID ORDERED BY, DR FIELD SPOKE WITH [facility] [phone]
--- NOTE | 2018-02-16 17:24 | NUR ---
rounds: patient resting on bed. no distress noted.
--- NOTE | 2018-02-16 19:30 | NUR ---
Closing notes: Patient on bed resting. Stable. Needs attended. Safety measures in placed. Call light within reach. Report given to mathematical engineer Surekha LANZA.
--- NOTE | 2018-02-16 19:35 | NUR ---
CHANGE OF SHIFT: pt. awake, alert , informed plan of care about Psych consult and Dr. Schmidt to come tonight. pt. ambulatory but stays inside the room. still having persistent abdominal pain, being medicated prn every 4 hours. call light within reach.
[2018-02-16 20:15] VITALS: BP_SYST 122
--- NOTE | 2018-02-16 21:00 | NUR ---
NOTES: pt. noted scratching his body, offered for shower and linen changed but refused and said tomorrow. repositioned self for comfort.
--- NOTE | 2018-02-16 22:00 | NUR ---
NOTES: medicated with Morphine IV for c/o rt. sided abdominal pain, noted abdomen distended but soft. pt. voided per urinal.
--- NOTE | 2018-02-17 00:05 | NUR ---
NOTES: remains awake, resting. IV antibiotic infused. pt. needs attended.
[2018-02-17 00:29] VITALS: BP_SYST 15
[2018-02-17] MEDS: MORPHINE 2 MG/ML INJ. SYRINGE IVP PRN ×4 (01:54→20:28)
--- NOTE | 2018-02-17 01:56 | NUR ---
NOTES: pt. still awake watching on his cell phone. medicated for c/o rt. sided abdominal pain, no nausea nor vomiting. been drinking oral fluids and voiding large amts. of urine.
[2018-02-17] MEDS ORDERED: BUPIVACAINE /PF 0.25% 30 ML VIAL INJ ONE (02:30)
[2018-02-17] MEDS ORDERED: NEOSTIGMINE METHYLSULFATE 1 MG/ML, 10 ML VIAL ONE (02:30)
[2018-02-17] MEDS ORDERED: fentaNYL CITRATE/PF 100 MCG/2 ML AMP ONE ×2 (02:30→23:05)
[2018-02-17] MEDS ORDERED: ROCURONIUM BROMIDE 10 MG/ML (ZEMURON) ONE (02:30)
[2018-02-17] MEDS ORDERED: LR 1,000 ML IV.SOLN IV ONE (02:30)
[2018-02-17] MEDS ORDERED: PROPOFOL 200MG/ 20ML VIAL (DIPRIVAN) IV ONE (02:30)
[2018-02-17] MEDS ORDERED: MIDAZOLAM HCL 5 MG/ML VIAL (VERSED) IV ONE (02:30)
[2018-02-17] MEDS ORDERED: SEVOFLURANE 15 MIN GAS INH ONE (02:30)
[2018-02-17] MEDS ORDERED: GLYCOPYRROLATE 0.2 MG/ML VIAL ONE (02:30)
[2018-02-17] MEDS ORDERED: CEFAZOLIN 2 GM IVPB PREMIX 50 ML IV ONE (02:30)
--- NOTE | 2018-02-17 03:47 | NUR ---
NOTES: pt. able to doze off, pt. noted sleeping when checked. continue to monitor.
[2018-02-17] MEDS: AMPICILLIN SODIUM/SULBACTAM NA 1.5 GM in NS 50 ML IV SCH ×3 (06:13→18:03)
[2018-02-17] MEDS: LR 1,000 ML IV SCH ×2 (06:24→19:48)
--- NOTE | 2018-02-17 06:32 | NUR ---
CLOSING NOTES; pt. sitting at the edge of the bed, medicated for c/o rt. sided abdominal pain. IVF patent, IV antibiotic infusing. Blood sugar checked 133, no sliding scale coverage. needs attended. appears anxious at times, still Dr. Levi to see him. for further assistance. no shortness of breath, on room air.
--- NOTE | 2018-02-17 07:30 | NUR ---
ENDORSED PT. TO INCOMING SHIFT WITH NURSE
--- NOTE | 2018-02-17 08:00 | NUR ---
initial notes rec patient awake alert with ivf infusing well on the r arm . no infiltration noted.resp easy and unlabored. bed in low position and side rails up and locked.call light within reached and knows when to call for assiatnce. educated re fall safety bed of pain med order.
--- NOTE | 2018-02-17 08:41 | NUR ---
CONSULTATION FOLLOW-UP REASON FOR CONSULTATION:PTSD CLEARANCE FOR SURGERY WAS CONSULT CALLED?Y PERSON WHO WAS NOTIFIED:DAVID CONSULTING PHYSICIAN:JULIÁN BURTON TECHNICAL WRITING LEAD/MGR SPECIALTY:PSYCHE TECHNICAL WRITING LEAD/MGR PHONE NUMBER:[phone] ORDERING PHYSICIAN:[facility]
--- NOTE | 2018-02-17 09:15 | NUR ---
JOSEPH JACOME DR, RAFFAELLE AT [phone] SPOKE WITH SERGEI.
--- NOTE | 2018-02-17 09:45 | NUR ---
rounds dr yung was called and stated wants pt to be seen first by shahnaz ibarra of possible delirium issue after sx.
--- NOTE | 2018-02-17 09:58 | NUR ---
DC PLANNING Informed Dr Saucedo, COMPUTER FORENSIC EXAMINER, Dr Mccoy medically cleared pt for surgery per nurse Dr Schmidt will not do sx until cleared by psych. Per Dr Saucedo have Dr Mccoy call & discuss w Dr Schmidt. Called & spoke w Dr Mccoy, states will call Dr Schmidt to discuss plan.
[2018-02-17] MEDS: THIAMINE HCL 100 MG TABLET PO SCH (10:04)
[2018-02-17] MEDS: MULTIVITS,CA,MINERALS/IRON/FA 1 TABLET PO SCH (10:04)
[2018-02-17] MEDS: CHOLECALCIFEROL (VITAMIN D3) 2,000 UNIT TABLET PO SCH (10:05)
[2018-02-17] MEDS: DOCUSATE SODIUM 250 MG CAPSULE PO SCH ×2 (10:05→21:00)
[2018-02-17] MEDS: POTASSIUM CHLORIDE 20 MEQ TAB.PRT.SR PO SCH ×2 (10:05→21:00)
[2018-02-17] MEDS: NEPHROVITE, (FOLIC ACID/VITAMIN B COMP W-C 1 TAB) PO SCH (10:05)
[2018-02-17] MEDS: FAMOTIDINE 20 MG TABLET PO SCH ×2 (10:05→21:00)
[2018-02-17] MEDS: LISINOPRIL 20 MG TABLET PO SCH ×2 (10:11→21:00)
[2018-02-17 12:15] VITALS: BP_SYST 122
[2018-02-17] MEDS: D5LR 1,000 ML IV SCH ×2 (12:15→20:15)
--- NOTE | 2018-02-17 12:25 | NUR ---
rounds accucheck was done bs was 85. npo was ordered for possible sx tonight. iv botttle was changed to d5lr. will continue to monitor patient.
--- NOTE | 2018-02-17 15:47 | NUR ---
Nutrition F/U Admitting Diagnosis Acute Pancreatitis Reviewed Pertinent Medical/Surgical Hx Medical Record Patient Patient's mother Medical History Comment: Pt found w/: Acute Alcoholic Gastritis/Esophagitis, Atypical CP, Severe Hypokalemia, Fatty liver, HTN, DM, Peripheral neuropathy, Alcoholism, Anemia and thrombocytopenia per MD notes. Per MD notes 02/16/18: gastritis/esophagitis/pancreatitis Subjective Information Pt has been observing NPO status since after breakfast this morning for possible plans for laparoscopic cholecystectomy versus open cholecystectomy per MD orders. Pt reported nausea today, but otherwise, good appetite. Pt reported tolerance to coffee, juice, eggs, and toast for breakfast today. Pt is not yet meeting optimal nutritional needs. Current Diet Order/Nutrition Support NPO x0 days Patient/Significant Other Able To Verbalize Education Provided Not Indicated Pertinent Medications VIT D, nephrovite, thiamine, theragran-M, zofran, k-dur, SSI, colace, glipizide, dulcolax Pertinent Labs POC BG 133 H 02/16/18: BG 115 H, ALB 2.1 L, H/H 10.5 L/32.6 L, WBC 8 WNL (improved), TG 159 H, Na 135 L, BUN 8 WNL (improved), Tbili 2 H, AST 63 H, ALP 261 H Height (Feet) 5 feet Height (Inches) 8.00 inches Weight (Pounds) 150 pounds (02/06/18) Weight (Calculated Kilograms) 68.315588 kilograms Patient Weight 68.039 kg Body Mass Index 22.80 kg/m2 %IBW 97 [place]/Adjusted Body Weight 154 lb, 70 kg Recent Weight Change Yes - per pt Weight Status Appropriate Last BM 02/17/18 x1 Food Allergies Yes - lactose-containing food per pt Usual Diet At Home regular diet per pt Skin Integrity Comment: Lino scale: 19; no skin issues noted Current % PO Good -- 90 % average x6 meals Estimated Energy Expenditure (kcals/day) 7320-2371 kcal/day (30-35 kcal/kg CBW for maintenance) Estimated Protein Required (g/day) 68-102 gm/day (1-1.5 gm/kg CBW for acute hepatitis) Estimated Fluid Required (l/day) 2.4 L/day (35 ml/kg CBW for maintenance) Problem/Etiology/Signs/Symptoms Inadequate nutritional intake related to behavioral factors as evidenced by pt's report of poor oral intake d/t depression and replacing meals w/ alcohol intake. *ongoing Expected Outcomes/Goals Monitor advancement of diet, and increase in oral intake w/ goal of pt meeting at least 75% of estimated nutritional needs, labs trending WNL, normal GI function, skin integrity/wt maintenance. Dietitian Recommendations *Consider advance to CCHO, cardiac diet if/when medically appropriate Follow Up High Risk: F/U in 2-3 days
--- NOTE | 2018-02-17 15:52 | NUR ---
Dietitian Recommendations *Consider advance to [facility], cardiac diet if/when medically appropriate LP, RD Please refer to Nutrition F/U for details.
--- NOTE | 2018-02-17 16:00 | NUR ---
rounds seen by dr driscoll at bedside. no sob noted. pt will be going at 1730.pt took a shower. no sob noted. call light within reached.
[2018-02-17 16:25] VITALS: BP_SYST 115
--- NOTE | 2018-02-17 18:26 | NUR ---
closing notes seen by dr christie at bedside and stated clear to go home. pt is awaiting to go to sx under dr mcclellan. npo maintianed. no hypo hyperglycemic reaction noted.
--- NOTE | 2018-02-17 19:25 | NUR ---
OPENING NOTE Patient sitting on the edge of the bed. No acute distress. Respiration even and unlabored. No c/o pain at this time. AAO x 4. Skin warm and dry to touch. IV intact to RFA, no redness, no swelling, no drainage. On D5LR at 100ml/hr, infusing well. Discussed the safety issue, use call light when need help, and plan of care, verbally understanding. Waiting for surgery. Safety measure maintained. Call light within reached. Bed locked in low position, side rails up. Will continue to monitor.
[2018-02-17 20:00] VITALS: BP_SYST 120
--- NOTE | 2018-02-17 20:50 | NUR ---
LEFT UNIT FOR SURGERY VIA BED IN STABLE CONDITION.
[2018-02-17] MEDS ORDERED: ONDANSETRON HCL 4 MG/2 ML VIAL IVP PRN ×2 (21:15→22:45)
[2018-02-17] MEDS ORDERED: KETOROLAC TROMETHAMINE 30 MG VIAL IVP PRN (21:15)
[2018-02-17] MEDS ORDERED: fentaNYL CITRATE/PF 100 MCG/2 ML AMP IVP PRN ×2 (21:15)
[2018-02-18] MEDS ORDERED: LABETALOL 100 MG/ 20ML VIAL IVP SCH
[2018-02-18] MEDS: ONDANSETRON HCL 4 MG/2 ML VIAL IVP PRN (00:04)
[2018-02-18] MEDS: HYDROmorphone 1 MG INJ. 1 MG/ML AMPUL IVP PRN ×7 (00:10→22:11)
--- NOTE | 2018-02-18 00:14 | NUR ---
pt is back from PACU, alert. awake, oriented. vital sign are stable. complain of nausea and pain. explain the pain meds. side effects. pain medication given pt is now monitor for post -op. vital sign.
--- NOTE | 2018-02-18 00:20 | NUR ---
ABDOMEN LAP SITES X4, COVERED WITH CLEAN AND DRY DRESSING, NO BLEEDING NOTED.
[2018-02-18 00:28] VITALS: BP_SYST 141
[2018-02-18 00:40] VITALS: BP_SYST 141
--- NOTE | 2018-02-18 00:40 | NUR ---
INCENTIVE SPIROMETER Instructed and encouraged patient to do incentive spirometer as tolerated, verbally understanding. Able to demonstrate back at 1800ml.
[2018-02-18] MEDS: AMPICILLIN SODIUM/SULBACTAM NA 1.5 GM in NS 50 ML IV SCH ×5 (00:46→23:46)
--- NOTE | 2018-02-18 01:02 | NUR ---
TRANDATE NOT GIVEN Patient resting on the bed. No acute distress. UN=939/84 at this time. Trandate 5mg IVP not given, patient on med surg. Patient received Dilaudid 1mg IVP at 0010. BP may be drop further. Charge nurse-Ericka sheppard.
--- NOTE | 2018-02-18 01:40 | NUR ---
ROUND Patient resting on the bed with eyes closed. No acute distress. Respiration even and unlabored. IV intact, IVF infusing well. SCD in placed. Safety measure maintained. Bed locked in low position, side rails up, bed alarm on. Call light within reached. Continue to monitor.
--- NOTE | 2018-02-18 03:11 | NUR ---
DILAUDID GIVEN Patient c/o abdomen pain 10/, Dilaudid 1mg IVP given as ordered. No acute distress. Sitting on the edge of the bed. IV intact, IVF infusing well. Safety measure maintained. Bed locked in low position, side rails up.call light within reached. Continue to monitor.
[2018-02-18] MEDS: NACL 0.9% 1,000 ML IV SCH ×3 (04:12→16:40)
--- NOTE | 2018-02-18 05:00 | NUR ---
ROUND Patient resting on the bed with eyes closed. No acute distress. IV intact, IVF infusing well. Safety measure maintained. Bed locked in low position, side rails up. Call light within reached. Continue to monitor.
[2018-02-18] MEDS: D5LR 1,000 ML IV SCH (06:15)
--- NOTE | 2018-02-18 06:54 | NUR ---
CLOSING NOTE Patient resting on the bed. No acute distress. Respiration even and unlabored. Pain med given around clock. Dilaudid 1mg given for c/o abdomen pain 10/10. Skin warm and dry to touch. IV intact to RFA, no redness, no swelling, no drainage. On NS at 100ml/hr, infusing well. S/P lab chol, abdomen lap sites x4, covered with clean and dry dressing, no bleeding noted. All needs met. Hourly rounding during shift. Safety measure maintained. Call light within reached. Bed locked in low position, side rails up, bed alarm on. BS=88, Glucotrol 5mg not given. Will endorse to morning shift nurse.
--- NOTE | 2018-02-18 08:00 | NUR ---
Opening Note Patient is currently awake and sitting up in bed. Abdominal incisions are covered with gauze and are dry and intact. IV is on the RFA 20g running NS @100. Call light is within reach and bed is in low position. Will continue to closely monitor.
[2018-02-18 08:02] LABS: ALBUMIN 2.4 g/dL (3.4-4.8); CALCIUM 8.8 mg/dL (8.4-11.0); CREATININE 0.71 mg/dL (0.55-1.30); POTASSIUM 4.1 mmol/L (3.5-5.1); TOTAL BILIRUBIN 2.5 mg/dL (0.0-1.0)
[2018-02-18 08:06] LABS: BASOPHILS % (AUTO) 0.1 % (0.0-2.0); EOSINOPHILS % (AUTO) 0.3 % (0.0-4.0); HEMATOCRIT 37.9 % (36-54); HEMOGLOBIN 12.5 g/dL (14.0-18.0); LYMPHOCYTES # (AUTO) 1.9 K/uL (1.0-5.5); LYMPHOCYTES % (AUTO) 18.2 % (20.5-51.5); MEAN CORPUSCULAR HEMOGLOBIN 34 pg (27-31); MEAN CORPUSCULAR HGB CONC 33 % (32-36); MEAN CORPUSCULAR VOLUME 102 fL (79.0-98.0); MONOCYTES # (AUTO) 0.6 K/uL (0.0-1.0); MONOCYTES % (AUTO) 5.6 % (1.7-9.3); NEUTROPHILS # (AUTO) 7.8 K/uL (1.8-7.7); NEUTROPHILS % (AUTO) 75.8 % (40.0-70.0); PLATELET COUNT (AUTO) 463 K/uL (130-430); RED BLOOD CELL COUNT(AUTO) 3.71 MIL/uL (4.2-6.2); RED CELL DISTRIBUTION WIDTH 14.5 % (9.0-15.0); WHITE BLOOD COUNT (AUTO) 10.3 K/uL (4.8-10.8)
[2018-02-18 08:08] VITALS: BP_SYST 118
[2018-02-18] MEDS: CHOLECALCIFEROL (VITAMIN D3) 2,000 UNIT TABLET PO SCH (08:51)
[2018-02-18] MEDS: LISINOPRIL 20 MG TABLET PO SCH ×2 (08:51→21:14)
[2018-02-18] MEDS: NEPHROVITE, (FOLIC ACID/VITAMIN B COMP W-C 1 TAB) PO SCH (08:51)
[2018-02-18] MEDS: THIAMINE HCL 100 MG TABLET PO SCH (08:52)
[2018-02-18] MEDS: FAMOTIDINE 20 MG TABLET PO SCH ×2 (08:52→21:13)
[2018-02-18] MEDS: POTASSIUM CHLORIDE 20 MEQ TAB.PRT.SR PO SCH ×2 (08:52→21:13)
[2018-02-18] MEDS: MULTIVITS,CA,MINERALS/IRON/FA 1 TABLET PO SCH (08:52)
[2018-02-18] MEDS: DOCUSATE SODIUM 250 MG CAPSULE PO SCH ×2 (08:55→21:13)
--- NOTE | 2018-02-18 10:10 | NUR ---
Pain med Medicated the patient with Dilaudid for the indicated pain scale. Will reassess.
[2018-02-18 12:00] VITALS: BP_SYST 121
--- NOTE | 2018-02-18 12:45 | NUR ---
Rounds patient is resting in bed. NO signs of distress noted at the moment. Will continue to monitor.
--- NOTE | 2018-02-18 14:14 | NUR ---
Pain med Medicated the patient with Dilaudid for the indicated pain scale. Will reassess.
[2018-02-18 16:00] VITALS: BP_SYST 108
--- NOTE | 2018-02-18 16:30 | NUR ---
Rounds Patient is currently sitting up in bed. call light is within reach. Seizure precautions are in place.
--- NOTE | 2018-02-18 18:30 | NUR ---
Pain med/closing note Medicated the patient with Dilaudid for the indicated pain scale. Will reassess. Patient tolerated his clear liquid diet well and is passing gas. Abdominal incisions are dry and intact. Seizure precautions are in place. Call light is within reach. Will endorse care to the oncoming nurse.
--- NOTE | 2018-02-18 19:55 | NUR ---
Initial Note Received patient awake, alert and oriented. No SOB noted. Denies any n/v at this time. Complain of moderate abdominal pain and he knows what time it is due. Abdominal incisional dressings x4 CDI. No drainage noted. IVF infusing. Skin intact and no peripheral edema noted. SCDs. Encouraged to use Incentive spirometer. Able to pass gas and able to burp but no BM yet. Care and monitoring will be provided per protocol. Repositions himself. Call light within reach. Bed at lowest position at all times. Bed alarm refused by the patient. Advised to call if he needs to get up. Kept warm and comfortable.
[2018-02-18 20:00] VITALS: BP_SYST 138
--- NOTE | 2018-02-18 21:15 | NUR ---
RN Note Due meds given, tolerated well. Educated patient on his medication. Latest blood sugar was 176, coverage given. Emptied urinal about 700 ml of clear yellow urine. Advised to lie down on his right side first then legs on bed to help him go back to bed from sitting. Patient tried it and it works better. Encouraged to use his incentive spirometer and able to reach at 1000 ml. Comfort and emotional support provided. Kept comfortable.
[2018-02-18] MEDS: INSULIN REGULAR, HUMAN 100 UNITS/ML, 10 ML VIAL (novoLIN R) SUBCUT PRN (21:22)
--- NOTE | 2018-02-18 22:15 | NUR ---
RN Note Medicated for pain per patient's request. Patient seems depressed. Listened and given emotional support. IVF infusing. Assisted back to bed. Kept comfortable. Will continue to monitor.
[2018-02-18] MEDS: traMADol HCL HCL 50 MG TABLET (ULTRAM) PO PRN (23:47)
--- NOTE | 2018-02-18 23:50 | NUR ---
RN Note Patient awake, watching TV moaning especially when he sits up in bed. IV antibiotic given as ordered and medicated for pain PO per patient's request. Assisted back to bed. Emptied urinal 200 ml of clear yellow urine. Comfort measures provided. Kept comfortable.
[2018-02-19 00:20] VITALS: BP_SYST 137
[2018-02-19] MEDS: HYDROmorphone 1 MG INJ. 1 MG/ML AMPUL IVP PRN ×4 (02:09→14:07)
[2018-02-19] MEDS: NACL 0.9% 1,000 ML IV SCH ×2 (02:10→16:06)
--- NOTE | 2018-02-19 02:10 | NUR ---
RN Note Patient awake, sitting on a bed listening to music. Complain of severe abdominal pain. Medicated for pain. Will continue to monitor. IVF infusing. Needs attended.
--- NOTE | 2018-02-19 03:25 | NUR ---
RN Note Patient lying in bed. No SOB or grimacing noted. IVF infusing.
[2018-02-19] MEDS: traMADol HCL HCL 50 MG TABLET (ULTRAM) PO PRN ×2 (05:27→17:18)
[2018-02-19] MEDS: AMPICILLIN SODIUM/SULBACTAM NA 1.5 GM in NS 50 ML IV SCH ×3 (05:27→17:23)
--- NOTE | 2018-02-19 05:30 | NUR ---
RN Note Patient awake and alert sitting on a bed. Medicated for pain PO per patient's request. Will continue to monitor. Distracting himself from pain by listening to music.
--- NOTE | 2018-02-19 06:23 | NUR ---
End Note Afebrile. VS stable. No complain of SOB or n/v throughout the night. Medicated for abdominal pain three times all night alternating with PO pain medication. IVF infusing. IV patent and intact. Refused bed alarm. SCDs on. On full liquid but wants to advance his diet-will endorse. Abdominal incisions CDI. Seizure precaution observed. No seizure episode noted. Latest blood sugar was 134, no coverage given. AM labs today. Repositions himself. Needs attended. Care and monitoring provided per protocol. Call light within reach and bed at lowest position at all times. Comfort and emotional support given. Kept warm and comfortable.
[2018-02-19 07:14] LABS: BASOPHILS # (AUTO) 0.1 K/uL (0.0-0.2); BASOPHILS % (AUTO) 0.7 % (0.0-2.0); EOSINOPHILS # (AUTO) 0.1 K/uL (0.0-0.4); EOSINOPHILS % (AUTO) 0.7 % (0.0-4.0); HEMATOCRIT 34.6 % (36-54); HEMOGLOBIN 11.7 g/dL (14.0-18.0); LYMPHOCYTES # (AUTO) 2.2 K/uL (1.0-5.5); LYMPHOCYTES % (AUTO) 23.4 % (20.5-51.5); MEAN CORPUSCULAR HEMOGLOBIN 34 pg (27-31); MEAN CORPUSCULAR HGB CONC 34 % (32-36); MEAN CORPUSCULAR VOLUME 101 fL (79.0-98.0); MONOCYTES # (AUTO) 0.8 K/uL (0.0-1.0); MONOCYTES % (AUTO) 8.5 % (1.7-9.3); NEUTROPHILS # (AUTO) 6.2 K/uL (1.8-7.7); NEUTROPHILS % (AUTO) 66.7 % (40.0-70.0); PLATELET COUNT (AUTO) 391 K/uL (130-430); RED BLOOD CELL COUNT(AUTO) 3.42 MIL/uL (4.2-6.2); RED CELL DISTRIBUTION WIDTH 13.6 % (9.0-15.0); WHITE BLOOD COUNT (AUTO) 9.4 K/uL (4.8-10.8)
[2018-02-19 08:00] VITALS: BP_SYST 126
--- NOTE | 2018-02-19 08:00 | NUR ---
Opening Note Report received form NOC shift nurse. Patient is currently sitting up in bed. Abdominal incisions are dry and intact. Bowel sounds are audible. Patient report passing gas. IV is on the RFA 20 running NS@100. Will light is within reach and bed is in low position. Will continue to monitor.
[2018-02-19 08:14] LABS: CALCIUM 8.2 mg/dL (8.4-11.0); CREATININE 0.57 mg/dL (0.55-1.30); POTASSIUM 3.8 mmol/L (3.5-5.1)
[2018-02-19 08:23] LABS: ALBUMIN 2.3 g/dL (3.4-4.8); TOTAL BILIRUBIN 1.9 mg/dL (0.0-1.0)
[2018-02-19] MEDS: NEPHROVITE, (FOLIC ACID/VITAMIN B COMP W-C 1 TAB) PO SCH (09:20)
[2018-02-19] MEDS: POTASSIUM CHLORIDE 20 MEQ TAB.PRT.SR PO SCH ×2 (09:20→20:26)
[2018-02-19] MEDS: DOCUSATE SODIUM 250 MG CAPSULE PO SCH ×2 (09:20→20:25)
[2018-02-19] MEDS: CHOLECALCIFEROL (VITAMIN D3) 2,000 UNIT TABLET PO SCH (09:21)
[2018-02-19] MEDS: FAMOTIDINE 20 MG TABLET PO SCH ×2 (09:21→20:26)
[2018-02-19] MEDS: MULTIVITS,CA,MINERALS/IRON/FA 1 TABLET PO SCH (09:21)
[2018-02-19] MEDS: THIAMINE HCL 100 MG TABLET PO SCH (09:21)
[2018-02-19] MEDS: LISINOPRIL 20 MG TABLET PO SCH ×2 (09:21→20:26)
--- NOTE | 2018-02-19 10:10 | NUR ---
Pain med Medicated the patient with Dilaudid for the indicated pain scale. Will reassess.
--- NOTE | 2018-02-19 10:20 | NUR ---
Rounds Patient is resting in bed. Call light is within reach. Will continue to monitor.
[2018-02-19 11:21] VITALS: BP_SYST 102
--- NOTE | 2018-02-19 12:20 | NUR ---
Rounds Patient is tolerated full liquid diet well. Advanced diet to soft. Will continue to monitor for abdominal discomfort.
--- NOTE | 2018-02-19 14:10 | NUR ---
Pain med Medicate the patient with Dilaudid for the indicated pain scale. Will reassess.
[2018-02-19 15:42] VITALS: BP_SYST 117
--- NOTE | 2018-02-19 15:43 | NUR ---
PT COMPLAIN TO THE NURSE HE NOT GET THE LUNCH AND THE NURSE SHE TOLD ME I TOLD HER HE GET HIS LUNCH I RUN TO THE [facility] I ASK FOR THE DIRTY TRAYS FOR LUNCH I FIND HIS TRY I SHOW HIS NURSE SHE TOLD ME TO TAKE THE TRAY TO HIM AFTER THIS ASK ME FOR ME NAME AND FOR ADMINISTRATE
[2018-02-19] MEDS: MORPHINE 2 MG/ML INJ. SYRINGE IVP PRN ×2 (16:12→20:27)
--- NOTE | 2018-02-19 16:12 | NUR ---
Pain med Medicated the patient with Morphine for the indicated pain scale. Will reassess.
--- NOTE | 2018-02-19 17:18 | NUR ---
Pain med Medicated the patient with Ultram for the indicated pain scale. Will reassess,
--- NOTE | 2018-02-19 18:56 | NUR ---
Closing Note Patient is resting in bed. No signs of distress noted. Abdominal incisions are dry and intact. IV is on the RFa 20g running NS@100. Patient is tolerating his soft diet well. Seizure precautions are in place. call light is within reach and bed is in low position. Will continue to monitor.
--- NOTE | 2018-02-19 20:00 | NUR ---
INITIAL NOTES; PT IS ALERT AND ORIENTED ; NOT IN ANY ACUTE DISTRESS; VITALS ARE STABLE ; ASSESSMENT DONE ; NOTICED 4 DRESSINGS TO THE ABDOMEN , ONE TO THE UMBILICAL SITE NOTED WITH SMALL BRUISE BELOW THE DRESSING AREA .IV TO THE R FA IS GETTING IV FLUID AT 100 CC/HR ; NO S/S OF ANY INFILTRATION NOTED ;PT REFUSED BED ALARM ; BED IN LOW AND LOCK POSITION , CALL HUNTER IN REACH ; ENCOURAGED PT TO CALL FOR ANY HELP ; WILL CONTINUE TO MONITOR PT . WILL CONTINUE TO MONITOR PT .
[2018-02-19 20:10] VITALS: BP_SYST 110
--- NOTE | 2018-02-19 20:27 | NUR ---
MEDICATION: DUE MEDS GIVEN ; PT C/O SEVERE PAIN MEDICATED WITH MORPHINE PER ORDER ; NOT IN ANY ACUTE DISTRESS ; WILL CONTINUE TO MONITOR PT .PT EDUCATED ON PEPCID PER ORDER . Addendum: 02/20/18 at 0313 by Eligio Selby RN PT STATED HE DIDNT HAD ANY BM FOR COUPLE OF DAYS , OFFERED STOOL SOFTENER , PT REFUSED , STATED HE JUST STARTED EATING TODAY .HE WILL WAIT UNTIL TOMORROW
[2018-02-19] MEDS: INSULIN REGULAR, HUMAN 100 UNITS/ML, 10 ML VIAL (novoLIN R) SUBCUT PRN (20:40)
--- NOTE | 2018-02-19 21:15 | NUR ---
RN NOTES: PT IS COMFORTABLE; NO COMPLAINTS AT THIS TIME ; WILL CONTINUE TO MONITOR PT .
--- NOTE | 2018-02-19 22:45 | NUR ---
RN NOTES; PT CALLED AND ASKED FOR PAIN MEDICATION , INFORMED PT THAT HIS MORPHINE IS DUE AT 0027 ONLY , AND ULTRAM WILL BE DUE IN 30 MIN ;PT STATED HE WILL TAKE ULTRAM LATER .
--- NOTE | 2018-02-19 23:30 | NUR ---
RN NOTES: PT DIDNT CALLED YET FOR PAIN MEDICATION ; WENT TO CHECK PATIENT AND OFFERED ULTRAM , PT ASKED" WILL I BE ABLE TO TAKE MY MORPHINE AT 0030 ", INFORMED PT THAT IT DEPENDS ON HIS BP AND PAIN , PT STATED "I WILL TAKE MORPHINE LATER , I AM FINE AT THIS TIME ".
[2018-02-20] MEDS: AMPICILLIN SODIUM/SULBACTAM NA 1.5 GM in NS 50 ML IV SCH ×2 (00:28→06:10)
[2018-02-20] MEDS: MORPHINE 2 MG/ML INJ. SYRINGE IVP PRN ×2 (00:29→06:14)
--- NOTE | 2018-02-20 00:29 | NUR ---
MEDICATION: DUE IV ANTIBIOTIC GIVEN PER ORDER , PT C/O PAIN , MEDICATED WITH MORPHINE PER ORDER . EDUCATED PT TO CALL FOR ANY HELP .WILL CONTINUE TO MONITOR
[2018-02-20] MEDS: NACL 0.9% 1,000 ML IV SCH (00:38)
[2018-02-20 01:39] VITALS: BP_SYST 142
--- NOTE | 2018-02-20 02:50 | NUR ---
RN NOTES: PT IS AWAKE , TALKING WITH SOMEONE ON THE PHONE , NOT IN ANY ACUTE DISTRESS; WILL CONTINUE TO MONITOR PT .
--- NOTE | 2018-02-20 04:32 | NUR ---
RN NOTES: PT IS SLEEPING , NOT IN ANY ACUTE DISTRESS; RESPIRATION IS EVEN AND NON LABORED ;WILL CONTINUE TO MONITOR.
--- NOTE | 2018-02-20 06:20 | NUR ---
RN NOTES; BS 95, DUE MEDS GIVEN ;ALSO PROVIDED SNACKS AND COFFEE ( PER REQUEST) .PT C/O PAIN .MEDICATED WITH MORPHINE PER ORDER ; WILL CONTINUE TO MONITOR PT .
--- NOTE | 2018-02-20 07:30 | NUR ---
CLOSING NOTES: REPORT GIVEN TO RN AT BEDSIDE ; NOTIFIED RN ABOUT THE DC ORDER AND PRESCRIPTION ; PT IS COMFORTABLE AT THIS TIME . NOT IN ANY ACUTE DISTRESS.
--- NOTE | 2018-02-20 07:55 | NUR ---
Nutrition Update Lino Scale 17 noted. Pt admitted for acute pancreatitis Diet: soft low fiber/bland diet BMI: 22.8 kg/m2 RD to follow per nutrition care standards.
[2018-02-20 08:06] VITALS: BP_SYST 136
--- NOTE | 2018-02-20 08:16 | NUR ---
INITIAL NOTE PT SITTING UP IN BED, AWAKE, ALERT, ANXIOUS. NO S/S OF ACUTE DISTRESS OR PAIN. VSS. PT AWARE HE IS TO BE DISCHARGED TODAY, PATIENT AND RN AGREED TO ESTIMATED TIME OF DISCHARGE 11AM SO THAT PT MAY ARRANGE TRANSPORTATION AND CASE MANAGEMENT HAS THE OPPORTUNITY TO SPEAK WITH PATIENT. PT REQUESTING TO SPEAK WITH SOMEONE REGARDING DISABILITY PAPERWORK. STATISTICAL FINANCIAL ANALYST AND CASE MANAGEMENT MADE AWARE OF ETA 11 AM TO SPEAK WITH PATIENT BEFORE DISCHARGE. IVF INFUSING TO RFA AT ORDERED RATE. PT REFUSING BED ALARM BUT ENCOURAGED TO CALL FOR ASSISTANCE WHEN GETTING OUT OF BED. PT VERBALIZED [id number]. SAFETY PRECAUTIONS IN PLACE, CALL LIGHT WITHIN REACH, WILL FOLLOW UP
--- NOTE | 2018-02-20 08:50 | NUR ---
DC Planning: met pt in room re dc to home with HH today. The pt. stated he is feeling better, no abdominal pain since gallbladder was removed. He stated "does not need HH nurse. He will f/u with pcp, GI and Dr. Strong in one week." Disability form and info provided to the pt. per request.
[2018-02-20] MEDS: traMADol HCL HCL 50 MG TABLET (ULTRAM) PO PRN (09:24)
[2018-02-20] MEDS: POTASSIUM CHLORIDE 20 MEQ TAB.PRT.SR PO SCH (09:25)
[2018-02-20] MEDS: MULTIVITS,CA,MINERALS/IRON/FA 1 TABLET PO SCH (09:25)
[2018-02-20] MEDS: FAMOTIDINE 20 MG TABLET PO SCH (09:25)
[2018-02-20] MEDS: DOCUSATE SODIUM 250 MG CAPSULE PO SCH (09:25)
[2018-02-20] MEDS: NEPHROVITE, (FOLIC ACID/VITAMIN B COMP W-C 1 TAB) PO SCH (09:26)
[2018-02-20] MEDS: LISINOPRIL 20 MG TABLET PO SCH (09:26)
[2018-02-20] MEDS: THIAMINE HCL 100 MG TABLET PO SCH (09:26)
[2018-02-20] MEDS: CHOLECALCIFEROL (VITAMIN D3) 2,000 UNIT TABLET PO SCH (09:26)
[2018-02-20 10:22] VITALS: BP_SYST 128
--- NOTE | 2018-02-20 10:30 | NUR ---
TRANSITION OF CARE DISCHARGE PAPERWORK REVIEWED, PT AWARE HE IS TO FOLLOW UP WITH DR FLOR AND DR RUIZ AND PCP IN ONE WEEK. EDUCATED REGARDING PRESCRIPTIONS AND DIET RECOMMENDATIONS. PT VERBALIZED UNDERSTANDING.
--- NOTE | 2018-02-20 11:30 | NUR ---
D/C Patient Patient given medication reconciliation form and D/C instructions. Exit Care provided. Patient verbalized understanding. MD discussed with patient the results and treatment provided. Ambulatory with steady gait for discharge to home. Patient in stable condition, ID band removed. IV catheter removed, intact and dressing applied, no active bleeding. Rx of ultram, lisinopril, multivit, thiamine, pepcid, glipizide, vit d3 given. Patient educated on pain management. All belongings sent with patient.
== END 2018-02-20 11:30 | disposition home or self-care (01) | DRG 263 ==
LOC: SED 06:01 → STU 08:25 → SMU 02-14 15:27
PROVIDERS: ADMIT Internal Medicine; ATTEND Internal Medicine
PROC: 0FT44ZZ Resection of Gallbladder, Percutaneous Endoscopic Approach (ICD-10-PCS; principal; 2018-02-17 16:15)
DX: K80.00 Calculus of gallbladder with acute cholecystitis without obstruction (principal); E43 Unspecified severe protein-calorie malnutrition; K85.20 Alcohol induced acute pancreatitis without necrosis or infection; D69.59 Other secondary thrombocytopenia; E11.42 Type 2 diabetes mellitus with diabetic polyneuropathy; E83.42 Hypomagnesemia; K70.10 Alcoholic hepatitis without ascites; D64.9 Anemia, unspecified; R07.89 Other chest pain; K29.20 Alcoholic gastritis without bleeding; K20.8 Other esophagitis; K76.0 Fatty (change of) liver, not elsewhere classified; F10.20 Alcohol dependence, uncomplicated; D72.819 Decreased white blood cell count, unspecified; F43.10 Post-traumatic stress disorder, unspecified; E87.6 Hypokalemia; I10 Essential (primary) hypertension; F32.9 Major depressive disorder, single episode, unspecified; K82.8 Other specified diseases of gallbladder; Z91.5 Personal history of self-harm; Z98.84 Bariatric surgery status; Z72.0 Tobacco use; Z90.49 Acquired absence of other specified parts of digestive tract; Z68.22 Body mass index [BMI] 22.0-22.9, adult; Z79.899 Other long term (current) drug therapy; Z79.84 Long term (current) use of oral hypoglycemic drugs
CPT/HCPCS: 36415; 74181; 76700-TC; 78226; 80048; 80053; 80061; 80076; 82962; 83690-TC; 83735-TC; 84484; 85007; 85025; 85027; 85610-TC; 85730-TC; 87070-TC; 87075-TC; 87081; 88304; 93005; 93306; 94010; 94640; 96360; 97116-GP; 99285; A9537; C1727; J0295; J0690; J1170; J1815; J2060; J2250; J2270; J2405; J2704; J2710; J3010; J3411; J3475; J3480; J3490; J7030; J7060; J7120

== ENCOUNTER 2018-03-02 04:38 | Inpatient (IN) | payer MEDICAID ==
[~2018-03-02] VITALS: Ht 170.2 cm; Wt 68.0 kg
[~2018-03-02 04:38] MED LIST: GLIP5TAB13 PO; LISI-600 PO
[2018-03-02 04:42] VITALS: BP_SYST 104
[2018-03-02] MEDS ORDERED: NACL 0.9% 1,000 ML IV ONE (05:05)
[2018-03-02] MEDS ORDERED: MORPHINE 4 MG/ML INJ. SYRINGE IVP ONE (05:15)
[2018-03-02] MEDS ORDERED: ONDANSETRON HCL 4 MG/2 ML VIAL IVP ONE (05:15)
[2018-03-02 05:37] LABS: BASOPHILS # (AUTO) 0.1 K/uL (0.0-0.2); BASOPHILS % (AUTO) 0.8 % (0.0-2.0); EOSINOPHILS # (AUTO) 0.1 K/uL (0.0-0.4); EOSINOPHILS % (AUTO) 0.8 % (0.0-4.0); HEMATOCRIT 40.6 % (36-54); HEMOGLOBIN 13.3 g/dL (14.0-18.0); LYMPHOCYTES # (AUTO) 1.4 K/uL (1.0-5.5); LYMPHOCYTES % (AUTO) 16.6 % (20.5-51.5); MEAN CORPUSCULAR HEMOGLOBIN 32 pg (27-31); MEAN CORPUSCULAR HGB CONC 33 % (32-36); MEAN CORPUSCULAR VOLUME 99 fL (79.0-98.0); MONOCYTES # (AUTO) 0.4 K/uL (0.0-1.0); MONOCYTES % (AUTO) 4.6 % (1.7-9.3); NEUTROPHILS # (AUTO) 6.3 K/uL (1.8-7.7); NEUTROPHILS % (AUTO) 77.2 % (40.0-70.0); PLATELET COUNT (AUTO) 299 K/uL (130-430); RED CELL DISTRIBUTION WIDTH 12.7 % (9.0-15.0); WHITE BLOOD COUNT (AUTO) 8.3 K/uL (4.8-10.8)
[2018-03-02] MEDS ORDERED: IOHEXOL 100 ML IV ONE (05:40)
[2018-03-02 05:44] LABS: CALCIUM 8.8 mg/dL (8.4-11.0); CREATININE 0.78 mg/dL (0.55-1.30); POTASSIUM 3.2 mmol/L (3.5-5.1)
[2018-03-02] MEDS ORDERED: DIPHENHYDRAMINE INJ 50 MG/ML VIAL IVP ONE (05:45)
[2018-03-02] MEDS ORDERED: METOCLOPRAMIDE HCL 10 MG/2 ML VIAL IVP ONE (05:45)
[2018-03-02 05:48] LABS: ALBUMIN 3.1 g/dL (3.4-4.8); TOTAL BILIRUBIN 2.3 mg/dL (0.0-1.0)
[2018-03-02] MEDS ORDERED: D5/0.45 NS 1,000 ML IV ONE (07:30)
[2018-03-02 07:58] VITALS: BP_SYST 141
[2018-03-02 09:56] LABS: BILIRUBIN,URINE 1+ (NEGATIVE); BLOOD, URINE NEGATIVE (NEGATIVE); CLARITY/URINE SL HAZY (CLEAR); COLOR,URINE ORANGE (YELLOW); GLUCOSE,URINE TRACE (NEGATIVE); KETONES,URINE NEGATIVE (NEGATIVE); LEUKOCYTE ESTERASE ,URINE NEGATIVE (NEGATIVE); NITRITE, URINE NEGATIVE (NEGATIVE); PROTEIN URINE 1+ (NEGATIVE)
[2018-03-02 10:04] LABS: UROBILINOGEN,URINE >=8 (0.2-1.0)
[2018-03-02 10:25] LABS: BACTERIA,URINE RARE /HPF (None Seen); MUCUS,URINE None Seen /LPF (None Seen); RBC,URINE 0-3 /HPF (0-3); WBC,URINE 0-3 /HPF (0-3); YEAST,URINE None Seen /HPF (None Seen)
[2018-03-02] MEDS ORDERED: DEXTROSE 50% JECT 50 ML DISP.SYRIN IVP PRN ×2 (10:45)
[2018-03-02] MEDS ORDERED: LORazepam 2 MG/ML VIAL IVP PRN (10:45)
[2018-03-02] MEDS: ONDANSETRON HCL 4 MG/2 ML VIAL IVP PRN ×3 (11:01→20:48)
[2018-03-02] MEDS: MORPHINE 4 MG/ML INJ. SYRINGE IVP PRN ×3 (11:02→20:51)
[2018-03-02 12:00] VITALS: BP_SYST 120
[2018-03-02] MEDS ORDERED: LR 1,000 ML IV SCH (12:00)
[2018-03-02] MEDS: INSULIN REGULAR, HUMAN 100 UNITS/ML, 10 ML VIAL (novoLIN R) SUBCUT PRN (17:49)
[2018-03-02] MEDS ORDERED: KCL 40mEq in D5/0.45NS 1000 mL 1,000 ML IV SCH (19:45)
[2018-03-03] MEDS: MORPHINE 4 MG/ML INJ. SYRINGE IVP PRN ×4 (01:35→20:07)
[2018-03-03 05:28] LABS: EOSINOPHILS # (AUTO) 0.1 K/uL (0.0-0.4); HEMOGLOBIN 12.1 g/dL (14.0-18.0); MEAN CORPUSCULAR HEMOGLOBIN 34 pg (27-31); MONOCYTES # (AUTO) 0.2 K/uL (0.0-1.0); NEUTROPHILS # (AUTO) 7.6 K/uL (1.8-7.7); NEUTROPHILS % (AUTO) 83.9 % (40.0-70.0)
[2018-03-03 06:06] LABS: ALBUMIN 2.5 g/dL (3.4-4.8); CALCIUM 8.1 mg/dL (8.4-11.0); CREATININE 0.7 mg/dL (0.55-1.30); TOTAL BILIRUBIN 2.1 mg/dL (0.0-1.0)
[2018-03-03 06:44] LABS: POTASSIUM 2.9 mmol/L (3.5-5.1)
[2018-03-03] MEDS: ONDANSETRON HCL 4 MG/2 ML VIAL IVP PRN ×4 (06:51→23:59)
[2018-03-03 06:53] LABS: BASOPHILS % (AUTO) 0.5 % (0.0-2.0); EOSINOPHILS % (AUTO) 1.2 % (0.0-4.0); HEMATOCRIT 35.5 % (36-54); LYMPHOCYTES % (AUTO) 11.7 % (20.5-51.5); MEAN CORPUSCULAR HGB CONC 34 % (32-36); MEAN CORPUSCULAR VOLUME 100 fL (79.0-98.0); MONOCYTES % (AUTO) 2.7 % (1.7-9.3); RED BLOOD CELL COUNT(AUTO) 3.56 MIL/uL (4.2-6.2); RED CELL DISTRIBUTION WIDTH 12.1 % (9.0-15.0); WHITE BLOOD COUNT (AUTO) 8.9 K/uL (4.8-10.8)
[2018-03-03 06:58] LABS: PLATELET COUNT (AUTO) 186 K/uL (130-430)
[2018-03-03] MEDS: KCL 40mEq in D5/0.45NS 1000 mL 1,000 ML IV SCH ×2 (07:15→17:45)
[2018-03-03 08:00] VITALS: BP_SYST 148
[2018-03-03 12:02] VITALS: BP_SYST 157
[2018-03-03] MEDS: POTASSIUM CHLORIDE 40 MEQ in NS 250 ML IV SCH ×2 (13:26→20:07)
[2018-03-03 17:53] VITALS: BP_SYST 144
[2018-03-03 19:15] VITALS: BP_SYST 159
[2018-03-03 22:45] VITALS: BP_SYST 142
[2018-03-04] MEDS: ONDANSETRON HCL 4 MG/2 ML VIAL IVP PRN (05:49)
[2018-03-04] MEDS: MORPHINE 4 MG/ML INJ. SYRINGE IVP PRN ×2 (05:49)
[2018-03-04 07:19] LABS: BASOPHILS # (AUTO) 0.1 K/uL (0.0-0.2); BASOPHILS % (AUTO) 0.7 % (0.0-2.0); EOSINOPHILS # (AUTO) 0.2 K/uL (0.0-0.4); EOSINOPHILS % (AUTO) 2.5 % (0.0-4.0); HEMATOCRIT 34.5 % (36-54); HEMOGLOBIN 11.7 g/dL (14.0-18.0); LYMPHOCYTES # (AUTO) 1.4 K/uL (1.0-5.5); LYMPHOCYTES % (AUTO) 17.5 % (20.5-51.5); MEAN CORPUSCULAR HEMOGLOBIN 34 pg (27-31); MEAN CORPUSCULAR HGB CONC 34 % (32-36); MEAN CORPUSCULAR VOLUME 100 fL (79.0-98.0); MONOCYTES # (AUTO) 0.2 K/uL (0.0-1.0); MONOCYTES % (AUTO) 3.1 % (1.7-9.3); NEUTROPHILS # (AUTO) 5.8 K/uL (1.8-7.7); NEUTROPHILS % (AUTO) 76.2 % (40.0-70.0); PLATELET COUNT (AUTO) 185 K/uL (130-430); RED BLOOD CELL COUNT(AUTO) 3.47 MIL/uL (4.2-6.2); RED CELL DISTRIBUTION WIDTH 12.5 % (9.0-15.0); WHITE BLOOD COUNT (AUTO) 7.7 K/uL (4.8-10.8)
[2018-03-04 07:23] LABS: ALBUMIN 2.4 g/dL (3.4-4.8); CALCIUM 8.3 mg/dL (8.4-11.0); CREATININE 0.6 mg/dL (0.55-1.30); POTASSIUM 3.6 mmol/L (3.5-5.1); TOTAL BILIRUBIN 1.2 mg/dL (0.0-1.0)
[2018-03-04] MEDS: MORPHINE 2 MG/ML INJ. SYRINGE IVP PRN ×2 (09:02→14:16)
[2018-03-04 11:28] VITALS: BP_SYST 153
[2018-03-04] MEDS ORDERED: HYDROcodone/ACETAMIN 10-325 MG TAB PO PRN (11:30)
[2018-03-04] MEDS ORDERED: HYDROcodone/ACETAMIN 5-325 MG TAB (NORCO/ VICODIN) PO PRN (11:30)
[2018-03-04] MEDS ORDERED: ACETAMINOPHEN 325 MG TABLET PO PRN (11:30)
[2018-03-04] MEDS: KCL 40mEq in D5/0.45NS 1000 mL 1,000 ML IV SCH (14:11)
[2018-03-04 15:48] VITALS: BP_SYST 145
[2018-03-04 19:45] VITALS: BP_SYST 120
[2018-03-05 00:02] VITALS: BP_SYST 152
[2018-03-05] MEDS: KCL 40mEq in D5/0.45NS 1000 mL 1,000 ML IV SCH ×2 (00:22→10:49)
[2018-03-05] MEDS: MORPHINE 2 MG/ML INJ. SYRINGE IVP PRN (00:23)
[2018-03-05 06:34] LABS: BASOPHILS # (AUTO) 0.1 K/uL (0.0-0.2); BASOPHILS % (AUTO) 1.6 % (0.0-2.0); EOSINOPHILS # (AUTO) 0.2 K/uL (0.0-0.4); EOSINOPHILS % (AUTO) 2.2 % (0.0-4.0); HEMATOCRIT 32.8 % (36-54); HEMOGLOBIN 11.4 g/dL (14.0-18.0); LYMPHOCYTES # (AUTO) 1.7 K/uL (1.0-5.5); LYMPHOCYTES % (AUTO) 24.7 % (20.5-51.5); MEAN CORPUSCULAR HEMOGLOBIN 34 pg (27-31); MEAN CORPUSCULAR HGB CONC 35 % (32-36); MEAN CORPUSCULAR VOLUME 99 fL (79.0-98.0); MONOCYTES # (AUTO) 0.4 K/uL (0.0-1.0); MONOCYTES % (AUTO) 6.4 % (1.7-9.3); NEUTROPHILS # (AUTO) 4.5 K/uL (1.8-7.7); NEUTROPHILS % (AUTO) 65.1 % (40.0-70.0); PLATELET COUNT (AUTO) 171 K/uL (130-430); RED BLOOD CELL COUNT(AUTO) 3.32 MIL/uL (4.2-6.2); RED CELL DISTRIBUTION WIDTH 12.4 % (9.0-15.0); WHITE BLOOD COUNT (AUTO) 6.9 K/uL (4.8-10.8)
[2018-03-05 06:50] LABS: ALBUMIN 2.5 g/dL (3.4-4.8); BILIRUBIN,DIRECT 0.7 mg/dL (0.0-0.3); CALCIUM 8.6 mg/dL (8.4-11.0); CREATININE 0.67 mg/dL (0.55-1.30); POTASSIUM 3.8 mmol/L (3.5-5.1)
[2018-03-05 07:42] VITALS: BP_SYST 158
[2018-03-05 12:07] VITALS: BP_SYST 145
[2018-03-05 16:02] VITALS: BP_SYST 133
[2018-03-05] MEDS: INSULIN REGULAR, HUMAN 100 UNITS/ML, 10 ML VIAL (novoLIN R) SUBCUT PRN (17:09)
[2018-03-05] MEDS ORDERED: HYDR-4272 PO (17:23)
[2018-03-05 17:35] VITALS: BP_SYST 146
== END 2018-03-05 19:00 | disposition home or self-care (01) | DRG 282 ==
LOC: SED 04:38 → SMU 07:16
PROVIDERS: ADMIT Preventive Medicine Preventive Medicine/Occupational Environmental Medicine; ATTEND Preventive Medicine Preventive Medicine/Occupational Environmental Medicine
DX: K85.90 Acute pancreatitis without necrosis or infection, unspecified (principal); E43 Unspecified severe protein-calorie malnutrition; K76.0 Fatty (change of) liver, not elsewhere classified; E11.65 Type 2 diabetes mellitus with hyperglycemia; E83.51 Hypocalcemia; D64.9 Anemia, unspecified; E78.5 Hyperlipidemia, unspecified; E87.6 Hypokalemia; F43.10 Post-traumatic stress disorder, unspecified; I10 Essential (primary) hypertension; F10.10 Alcohol abuse, uncomplicated; R74.0 Nonspecific elevation of levels of transaminase and lactic acid dehydrogenase [LDH]; E66.9 Obesity, unspecified; F32.9 Major depressive disorder, single episode, unspecified; K59.00 Constipation, unspecified; Z80.3 Family history of malignant neoplasm of breast; Z98.84 Bariatric surgery status; Z91.011 Allergy to milk products; Z79.899 Other long term (current) drug therapy; Z90.49 Acquired absence of other specified parts of digestive tract; Z87.81 Personal history of (healed) traumatic fracture; Z87.891 Personal history of nicotine dependence; Z68.23 Body mass index [BMI] 23.0-23.9, adult
CPT/HCPCS: 36415; 74181; 78226; 80053; 81000-TC; 82150-TC; 82248-TC; 82962; 83690-TC; 85025; 87081; 96361; 96374; 96375; 99285; A9537; J1200; J1815; J2270; J2405; J2765; J3480; J7030; J7050; J7120; Q9967

== ENCOUNTER 2018-03-18 11:56 | Inpatient (IN) | payer MEDICAID ==
[~2018-03-18] VITALS: Ht 172.7 cm; Wt 68.0 kg
[~2018-03-18 11:56] MED LIST changes: +HYDR-4272 PO
[2018-03-18 12:01] VITALS: BP_SYST 178
[2018-03-18] MEDS ORDERED: NACL 0.9% 1,000 ML IV ONE ×2 (12:05→12:15)
[2018-03-18] MEDS ORDERED: ONDANSETRON HCL 4 MG/2 ML VIAL IVP ONE (12:15)
[2018-03-18 13:04] LABS: BASOPHILS % (AUTO) 0.9 % (0.0-2.0); EOSINOPHILS % (AUTO) 0.3 % (0.0-4.0); HEMATOCRIT 43.3 % (36-54); LYMPHOCYTES # (AUTO) 0.8 K/uL (1.0-5.5); LYMPHOCYTES % (AUTO) 14.9 % (20.5-51.5); MEAN CORPUSCULAR HEMOGLOBIN 32 pg (27-31); MEAN CORPUSCULAR HGB CONC 32 % (32-36); MEAN CORPUSCULAR VOLUME 97 fL (79.0-98.0); MONOCYTES # (AUTO) 0.2 K/uL (0.0-1.0); MONOCYTES % (AUTO) 4.5 % (1.7-9.3); NEUTROPHILS # (AUTO) 4.4 K/uL (1.8-7.7); NEUTROPHILS % (AUTO) 79.4 % (40.0-70.0); PLATELET COUNT (AUTO) 231 K/uL (130-430); RED BLOOD CELL COUNT(AUTO) 4.46 MIL/uL (4.2-6.2); RED CELL DISTRIBUTION WIDTH 12.7 % (9.0-15.0); WHITE BLOOD COUNT (AUTO) 5.4 K/uL (4.8-10.8)
[2018-03-18 13:15] LABS: ANION GAP 16 (5-15); CALCIUM 9.1 mg/dL (8.4-11.0); CHLORIDE 97 mmol/L (98-107); CREATININE 0.93 mg/dL (0.55-1.30); GLUCOSE 192 mg/dL (70-99); SODIUM SERUM 139 mmol/L (136-145); UREA NITROGEN, BLOOD 8 mg/dL (8-21)
[2018-03-18 13:17] LABS: GFR AFRICAN AMERICAN 112 mL/min (>90)
[2018-03-18 13:21] LABS: ALANINE AMINOTRANSFERASE 132 U/L (12-78); ALBUMIN 3.6 g/dL (3.4-4.8); AMYLASE 55 U/L (0-100); ASPARTATE AMINOTRANSFERASE 172 U/L (10-37); LIPASE 407 U/L (73-393); TOTAL BILIRUBIN 1.7 mg/dL (0.0-1.0)
[2018-03-18 13:23] LABS: ALCOHOL, BLOOD < 3 mg/dL (<10)
[2018-03-18 13:26] LABS: PROTHROMBIN TIME 10.5 SECS (9.5-12.5)
[2018-03-18] MEDS ORDERED: GLU500 PO (15:25)
[2018-03-18] MEDS ORDERED: LORA2TAB95 PO (15:25)
[2018-03-18] MEDS ORDERED: D5/0.45 NS 1,000 ML IV ONE (15:30)
[2018-03-18] MEDS ORDERED: LORazepam 2 MG/ML VIAL IVP PRN ×2 (15:30→16:45)
[2018-03-18 16:02] VITALS: BP_SYST 146
[2018-03-18 16:20] LABS: BILIRUBIN,URINE NEGATIVE (NEGATIVE); BLOOD, URINE NEGATIVE (NEGATIVE); CLARITY/URINE CLEAR (CLEAR); COLOR,URINE AMBER (YELLOW); GLUCOSE,URINE TRACE (NEGATIVE); KETONES,URINE 1+ (NEGATIVE); LEUKOCYTE ESTERASE ,URINE NEGATIVE (NEGATIVE); NITRITE, URINE NEGATIVE (NEGATIVE); PROTEIN URINE TRACE (NEGATIVE)
[2018-03-18 16:41] LABS: BARBITURATE, URINE NEGATIVE (NEG <=200); BENZODIAZEPINE, URINE POSITIVE (NEG <=150); CANNABINOID, URINE NEGATIVE (NEG <=50); COCAINE, URINE NEGATIVE (NEG <=150); METHAMPHETAMINES SCREEN,URINE NEGATIVE (NEG <=500); OPIATE, URINE NEGATIVE (NEG <=100); PHENCYCLIDINE SCREEN,URINE NEGATIVE (NEG <=25); UR TRICYCLIC ANTIDEPRESSANTS NEGATIVE (NEG <=300); URINE AMPHETAMINE NEGATIVE (NEG <=500); URINE METHADONE NEGATIVE (NEG <=200); URINE OXYCODONE SCREEN NEGATIVE (NEG <=100); URINE PROPOXYPHENE SCREEN NEGATIVE (NEG <=300)
[2018-03-18] MEDS ORDERED: MORPHINE 2 MG/ML INJ. SYRINGE IVP PRN (16:45)
[2018-03-18] MEDS ORDERED: METOPROLOL TARTRATE 25 MG TABLET PO ONE (16:45)
[2018-03-18] MEDS ORDERED: ZOLPIDEM TARTRATE 5 MG TABLET PO PRN (16:45)
[2018-03-18] MEDS ORDERED: DOCUSATE SODIUM 100 MG CAPSULE PO PRN (16:45)
[2018-03-18] MEDS ORDERED: POTASSIUM CHLORIDE 20 MEQ TAB.PRT.SR PO PRN (16:45)
[2018-03-18] MEDS ORDERED: ACETAMINOPHEN 325 MG TABLET PO PRN (16:45)
[2018-03-18] MEDS ORDERED: DEXTROSE 50% JECT 50 ML DISP.SYRIN IVP PRN (16:45)
[2018-03-18] MEDS ORDERED: MUPIROCIN 2% TOPICAL OINTMENT 22 GM NS PRN (16:45)
[2018-03-18] MEDS ORDERED: MAGNESIUM SULFATE 50 ML IV PRN (16:45)
[2018-03-18 16:49] VITALS: BP_SYST 146
[2018-03-18] MEDS: ONDANSETRON HCL 4 MG/2 ML VIAL IVP PRN (16:58)
[2018-03-18] MEDS: MORPHINE 2 MG/ML INJ. SYRINGE IVP PRN ×2 (17:00→21:39)
[2018-03-18 20:21] VITALS: BP_SYST 134
[2018-03-18] MEDS: METOPROLOL TARTRATE 25 MG TABLET PO SCH (21:36)
[2018-03-18] MEDS: INSULIN ASPART 100 UNITS/ML, 10 ML VIAL (NovoLOG) SUBCUT PRN (21:38)
[2018-03-18 23:00] VITALS: BP_SYST 151
[2018-03-19] MEDS: ONDANSETRON HCL 4 MG/2 ML VIAL IVP PRN ×2 (03:45→10:20)
[2018-03-19] MEDS: D5NS 1,000 ML IV SCH ×2 (03:45→16:47)
[2018-03-19] MEDS: MORPHINE 2 MG/ML INJ. SYRINGE IVP PRN ×4 (03:46→19:58)
[2018-03-19 05:36] LABS: BASOPHILS % (AUTO) 0.2 % (0.0-2.0); EOSINOPHILS # (AUTO) 0.1 K/uL (0.0-0.4); EOSINOPHILS % (AUTO) 0.9 % (0.0-4.0); HEMATOCRIT 39.7 % (36-54); HEMOGLOBIN 12.7 g/dL (14.0-18.0); LYMPHOCYTES # (AUTO) 1.2 K/uL (1.0-5.5); LYMPHOCYTES % (AUTO) 21.2 % (20.5-51.5); MEAN CORPUSCULAR HEMOGLOBIN 31 pg (27-31); MEAN CORPUSCULAR HGB CONC 32 % (32-36); MEAN CORPUSCULAR VOLUME 97 fL (79.0-98.0); MONOCYTES # (AUTO) 0.2 K/uL (0.0-1.0); MONOCYTES % (AUTO) 3.7 % (1.7-9.3); NEUTROPHILS # (AUTO) 4.1 K/uL (1.8-7.7); PLATELET COUNT (AUTO) 159 K/uL (130-430); RED CELL DISTRIBUTION WIDTH 12.4 % (9.0-15.0); WHITE BLOOD COUNT (AUTO) 5.6 K/uL (4.8-10.8)
[2018-03-19 05:59] LABS: CALCIUM 8.1 mg/dL (8.4-11.0); CREATININE 0.76 mg/dL (0.55-1.30); POTASSIUM 3.1 mmol/L (3.5-5.1)
[2018-03-19 07:14] LABS: ALBUMIN 3.1 g/dL (3.4-4.8); BILIRUBIN,DIRECT 1.3 mg/dL (0.0-0.3); TOTAL BILIRUBIN 2.3 mg/dL (0.0-1.0)
[2018-03-19 07:37] VITALS: BP_SYST 136
[2018-03-19] MEDS ORDERED: GASTROGRAFIN 120 ML ONE (08:28)
[2018-03-19] MEDS ORDERED: POTASSIUM CHLORIDE 40 MEQ, LIDOCAINE JECT 2% PF 100 MG 50 MG in NS 250 ML IV ONE (09:00)
[2018-03-19] MEDS: LIPASE/PROTEASE/AMYLASE 1 CAP PO SCH ×3 (10:21→17:37)
[2018-03-19] MEDS: METOPROLOL TARTRATE 25 MG TABLET PO SCH ×2 (10:21→20:25)
[2018-03-19] MEDS: INSULIN ASPART 100 UNITS/ML, 10 ML VIAL (NovoLOG) SUBCUT PRN ×2 (11:47→20:24)
[2018-03-19 12:12] VITALS: BP_SYST 129; BP_SYST 146
[2018-03-19 16:02] VITALS: BP_SYST 111
[2018-03-19 19:00] VITALS: BP_SYST 128
[2018-03-19 20:00] VITALS: BP_SYST 128
[2018-03-20 01:46] VITALS: BP_SYST 112
[2018-03-20] MEDS: D5NS 1,000 ML IV SCH ×2 (02:30→11:31)
[2018-03-20] MEDS: MORPHINE 2 MG/ML INJ. SYRINGE IVP PRN ×4 (04:39→21:51)
[2018-03-20 07:31] LABS: CALCIUM 8.2 mg/dL (8.4-11.0); CREATININE 1.02 mg/dL (0.55-1.30); POTASSIUM 3.6 mmol/L (3.5-5.1)
[2018-03-20 07:34] LABS: PROTHROMBIN TIME 10.3 SECS (9.5-12.5)
[2018-03-20 07:35] VITALS: BP_SYST 138
[2018-03-20 07:38] LABS: BASOPHILS % (AUTO) 0.9 % (0.0-2.0); EOSINOPHILS # (AUTO) 0.1 K/uL (0.0-0.4); EOSINOPHILS % (AUTO) 1.9 % (0.0-4.0); HEMATOCRIT 37.7 % (36-54); HEMOGLOBIN 12.1 g/dL (14.0-18.0); LYMPHOCYTES # (AUTO) 1.3 K/uL (1.0-5.5); LYMPHOCYTES % (AUTO) 24.5 % (20.5-51.5); MEAN CORPUSCULAR HEMOGLOBIN 32 pg (27-31); MEAN CORPUSCULAR HGB CONC 32 % (32-36); MEAN CORPUSCULAR VOLUME 98 fL (79.0-98.0); MONOCYTES # (AUTO) 0.2 K/uL (0.0-1.0); MONOCYTES % (AUTO) 4.1 % (1.7-9.3); NEUTROPHILS # (AUTO) 3.9 K/uL (1.8-7.7); NEUTROPHILS % (AUTO) 68.6 % (40.0-70.0); PLATELET COUNT (AUTO) 116 K/uL (130-430); RED BLOOD CELL COUNT(AUTO) 3.84 MIL/uL (4.2-6.2); RED CELL DISTRIBUTION WIDTH 12.4 % (9.0-15.0); WHITE BLOOD COUNT (AUTO) 5.5 K/uL (4.8-10.8)
[2018-03-20] MEDS: LIPASE/PROTEASE/AMYLASE 1 CAP PO SCH ×3 (08:00→16:58)
[2018-03-20] MEDS: METOPROLOL TARTRATE 25 MG TABLET PO SCH ×3 (08:30→20:50)
[2018-03-20] MEDS: ONDANSETRON HCL 4 MG/2 ML VIAL IVP PRN (08:45)
[2018-03-20] MEDS ORDERED: SIMETHICONE 40 MG/0.6 ML ML ONE (09:56)
[2018-03-20] MEDS ORDERED: DIPHENHYDRAMINE INJ 50 MG/ML VIAL ONE (09:56)
[2018-03-20] MEDS ORDERED: MEPERIDINE HCL/PF 100 MG/ML AMP ONE (09:56)
[2018-03-20 12:02] VITALS: BP_SYST 143
[2018-03-20] MEDS: MIDAZOLAM HCL 5 MG/5 ML VIAL ONE ×3 (13:20→13:26)
[2018-03-20] MEDS ORDERED: PANTOPRAZOLE SODIUM 40 MG/VIAL (PROTONIX) IVP ONE (13:45)
[2018-03-20 16:02] VITALS: BP_SYST 147
[2018-03-20] MEDS: INSULIN ASPART 100 UNITS/ML, 10 ML VIAL (NovoLOG) SUBCUT PRN (16:59)
[2018-03-20 19:05] VITALS: BP_SYST 139
[2018-03-21] MEDS: ONDANSETRON HCL 4 MG/2 ML VIAL IVP PRN ×3 (02:34→14:04)
[2018-03-21] MEDS: MORPHINE 2 MG/ML INJ. SYRINGE IVP PRN ×3 (02:34→14:04)
[2018-03-21] MEDS: D5NS 1,000 ML IV SCH ×2 (06:09→16:00)
[2018-03-21 07:54] VITALS: BP_SYST 145
[2018-03-21 08:00] LABS: CALCIUM 7.9 mg/dL (8.4-11.0); CREATININE 0.53 mg/dL (0.55-1.30)
[2018-03-21 08:02] LABS: BASOPHILS % (AUTO) 0.4 % (0.0-2.0); EOSINOPHILS # (AUTO) 0.1 K/uL (0.0-0.4); EOSINOPHILS % (AUTO) 2.6 % (0.0-4.0); HEMATOCRIT 36.3 % (36-54); HEMOGLOBIN 12.5 g/dL (14.0-18.0); LYMPHOCYTES # (AUTO) 1.3 K/uL (1.0-5.5); LYMPHOCYTES % (AUTO) 22.6 % (20.5-51.5); MEAN CORPUSCULAR HEMOGLOBIN 32 pg (27-31); MEAN CORPUSCULAR HGB CONC 34 % (32-36); MEAN CORPUSCULAR VOLUME 94 fL (79.0-98.0); MONOCYTES # (AUTO) 0.2 K/uL (0.0-1.0); MONOCYTES % (AUTO) 4.3 % (1.7-9.3); NEUTROPHILS % (AUTO) 70.1 % (40.0-70.0); PLATELET COUNT (AUTO) 113 K/uL (130-430); RED BLOOD CELL COUNT(AUTO) 3.86 MIL/uL (4.2-6.2); RED CELL DISTRIBUTION WIDTH 12.7 % (9.0-15.0); WHITE BLOOD COUNT (AUTO) 5.6 K/uL (4.8-10.8)
[2018-03-21 08:09] LABS: ALBUMIN 2.7 g/dL (3.4-4.8); TOTAL BILIRUBIN 0.8 mg/dL (0.0-1.0)
[2018-03-21 08:15] LABS: POTASSIUM 2.8 mmol/L (3.5-5.1)
[2018-03-21] MEDS: LIPASE/PROTEASE/AMYLASE 1 CAP PO SCH ×3 (08:18→17:12)
[2018-03-21] MEDS: METOPROLOL TARTRATE 25 MG TABLET PO SCH (08:20)
[2018-03-21] MEDS ORDERED: PANTOPRAZOLE SODIUM 40 MG/VIAL (PROTONIX) IVP SCH (09:00)
[2018-03-21] MEDS ORDERED: MAGNESIUM SULFATE 50 ML IV ONE (11:00)
[2018-03-21] MEDS ORDERED: POTASSIUM CHLORIDE 20 MEQ/PKT PACKET PO ONE (11:00)
[2018-03-21 12:00] VITALS: BP_SYST 146
[2018-03-21] MEDS ORDERED: PRO40 PO (13:37)
[2018-03-21 15:38] VITALS: BP_SYST 138
[2018-03-21 16:44] LABS: CALCIUM 8.4 mg/dL (8.4-11.0); CREATININE 0.7 mg/dL (0.55-1.30); POTASSIUM 4.7 mmol/L (3.5-5.1)
[2018-03-21 16:56] VITALS: BP_SYST 135
== END 2018-03-21 18:25 | disposition home or self-care (01) | DRG 282 ==
LOC: SED 11:56 → SMU 15:21
PROVIDERS: ADMIT General Practice; ATTEND General Practice
PROC: 0DB68ZX Excision of Stomach, Via Natural or Artificial Opening Endoscopic, Diagnostic (ICD-10-PCS; 2018-03-20)
PROC: 0DBA8ZX Excision of Jejunum, Via Natural or Artificial Opening Endoscopic, Diagnostic (ICD-10-PCS; principal; 2018-03-20 13:00)
DX: K86.0 Alcohol-induced chronic pancreatitis (principal); E43 Unspecified severe protein-calorie malnutrition; E87.1 Hypo-osmolality and hyponatremia; E83.42 Hypomagnesemia; E87.6 Hypokalemia; R74.0 Nonspecific elevation of levels of transaminase and lactic acid dehydrogenase [LDH]; R73.9 Hyperglycemia, unspecified; K29.70 Gastritis, unspecified, without bleeding; Z98.84 Bariatric surgery status; Z79.899 Other long term (current) drug therapy; Z91.011 Allergy to milk products; Z90.49 Acquired absence of other specified parts of digestive tract
CPT/HCPCS: 36415; 43239; 71045; 74245-TC; 76700-TC; 80048; 80053; 80076; 80307; 81003; 82150-TC; 82550-TC; 82962; 83036; 83690-TC; 83735-TC; 84484; 85025; 85610-TC; 85730-TC; 87081; 88305; 88312; 88313; 93005; 96361; 96374; 99285; C9113; G0482; J1200; J1815; J2060; J2175; J2250; J2270; J2405; J3475; J3480; J7042; J7050; Q9963

== ENCOUNTER 2018-06-06 07:23 | Inpatient (IN) | payer MEDICAID ==
[~2018-06-06] VITALS: Ht 172.7 cm; Wt 68.0 kg
[~2018-06-06 07:23] MED LIST changes: +LORA2TAB95 PO; +PRO40 PO
[2018-06-06 07:33] VITALS: BP_SYST 131
[2018-06-06] MEDS ORDERED: PROCHLORPERAZINE EDISYLATE 10 MG/2 ML VIAL IVP ONE (07:45)
[2018-06-06] MEDS ORDERED: KETOROLAC TROMETHAMINE 15 MG VIAL IVP ONE (07:45)
[2018-06-06] MEDS ORDERED: NACL 0.9% 2,000 ML IV ONE (07:45)
[2018-06-06] MEDS ORDERED: PANTOPRAZOLE SODIUM 40 MG/VIAL (PROTONIX) IVP ONE (07:45)
[2018-06-06 08:34] LABS: BASOPHILS % (AUTO) 0.4 % (0.0-2.0); EOSINOPHILS % (AUTO) 0.6 % (0.0-4.0); HEMOGLOBIN 13.4 g/dL (14.0-18.0); LYMPHOCYTES # (AUTO) 0.9 K/uL (1.0-5.5); MEAN CORPUSCULAR HEMOGLOBIN 30 pg (27-31); MEAN CORPUSCULAR HGB CONC 34 % (32-36); MEAN CORPUSCULAR VOLUME 89 fL (79.0-98.0); MONOCYTES # (AUTO) 0.4 K/uL (0.0-1.0); MONOCYTES % (AUTO) 5.9 % (1.7-9.3); NEUTROPHILS # (AUTO) 4.7 K/uL (1.8-7.7); PLATELET COUNT (AUTO) 76 K/uL (130-430); RED BLOOD CELL COUNT(AUTO) 4.48 MIL/uL (4.2-6.2); RED CELL DISTRIBUTION WIDTH 14.3 % (9.0-15.0)
[2018-06-06 08:39] LABS: CALCIUM 9.5 mg/dL (8.4-11.0); CREATININE 0.74 mg/dL (0.55-1.30)
[2018-06-06 08:43] LABS: POTASSIUM 2.9 mmol/L (3.5-5.1)
[2018-06-06 08:45] LABS: ALBUMIN 3.7 g/dL (3.4-4.8); TOTAL BILIRUBIN 1.6 mg/dL (0.0-1.0)
[2018-06-06] MEDS ORDERED: POTASSIUM CHLORIDE 20 MEQ/PKT PACKET PO ONE (09:00)
[2018-06-06 09:49] LABS: NEUTROPHILS % (AUTO) 78.1 % (40.0-70.0)
[2018-06-06] MEDS ORDERED: INSULIN ASPART 100 UNITS/ML, 10 ML VIAL (NovoLOG) SUBCUT PRN (10:45)
[2018-06-06 11:00] VITALS: BP_SYST 134
[2018-06-06] MEDS ORDERED: D5W 1,000 ML IV PRN (11:45)
[2018-06-06] MEDS ORDERED: DEXTROSE 50%-WATER 50 ML DISP.SYRIN IVP PRN (11:45)
[2018-06-06] MEDS ORDERED: GLUCOSE 15 GM GEL (in 37.5 GM TUBE) PO PRN (11:45)
[2018-06-06] MEDS ORDERED: MORPHINE 4 MG/ML INJ. SYRINGE IVP PRN (12:45)
[2018-06-06] MEDS ORDERED: ACETAMINOPHEN 650 MG SUPP.RECT RC PRN (12:45)
[2018-06-06] MEDS: MORPHINE 4 MG/ML INJ. SYRINGE IVP PRN ×3 (13:50→22:27)
[2018-06-06] MEDS ORDERED: MAGNESIUM SULFATE IV ONE (14:00)
[2018-06-06] MEDS ORDERED: D5W IV ONE (14:00)
[2018-06-06] MEDS: ONDANSETRON HCL 4 MG/2 ML VIAL IVP PRN ×2 (14:44→22:26)
[2018-06-06 16:34] VITALS: BP_SYST 128
[2018-06-06] MEDS: FOLIC ACID 1 MG, THIAMINE HCL 100 MG, MAGNESIUM SULFATE 1 GM, MVI 10 ML in NACL 0.9% 1,... IV SCH (17:26)
[2018-06-06 20:00] VITALS: BP_SYST 145
[2018-06-06 23:25] VITALS: BP_SYST 132
[2018-06-07] MEDS: MORPHINE 4 MG/ML INJ. SYRINGE IVP PRN ×5 (02:29→21:39)
[2018-06-07] MEDS: KCL 20 mEq in NS 1000 mL 1,000 ML IV SCH ×2 (02:30→10:27)
[2018-06-07] MEDS: ONDANSETRON HCL 4 MG/2 ML VIAL IVP PRN (06:29)
[2018-06-07 06:56] LABS: CALCIUM 8.5 mg/dL (8.4-11.0); CREATININE 0.51 mg/dL (0.55-1.30); POTASSIUM 3.7 mmol/L (3.5-5.1)
[2018-06-07 07:13] LABS: ALBUMIN 2.9 g/dL (3.4-4.8); BILIRUBIN,DIRECT 0.3 mg/dL (0.0-0.3); THYROID STIMULATING HORMONE 2.57 uIu/mL (0.36-3.74); TOTAL BILIRUBIN 0.9 mg/dL (0.0-1.0)
[2018-06-07 07:29] LABS: BASOPHILS % (AUTO) 0.2 % (0.0-2.0); EOSINOPHILS # (AUTO) 0.1 K/uL (0.0-0.4); EOSINOPHILS % (AUTO) 1.1 % (0.0-4.0); HEMATOCRIT 32.7 % (36-54); HEMOGLOBIN 11.1 g/dL (14.0-18.0); LYMPHOCYTES # (AUTO) 1.2 K/uL (1.0-5.5); LYMPHOCYTES % (AUTO) 24.8 % (20.5-51.5); MEAN CORPUSCULAR HEMOGLOBIN 30 pg (27-31); MEAN CORPUSCULAR HGB CONC 34 % (32-36); MEAN CORPUSCULAR VOLUME 88 fL (79.0-98.0); MONOCYTES # (AUTO) 0.4 K/uL (0.0-1.0); MONOCYTES % (AUTO) 7.5 % (1.7-9.3); NEUTROPHILS # (AUTO) 3.1 K/uL (1.8-7.7); NEUTROPHILS % (AUTO) 66.4 % (40.0-70.0); RED BLOOD CELL COUNT(AUTO) 3.71 MIL/uL (4.2-6.2); RED CELL DISTRIBUTION WIDTH 14.1 % (9.0-15.0); WHITE BLOOD COUNT (AUTO) 4.8 K/uL (4.8-10.8)
[2018-06-07 08:00] VITALS: BP_SYST 140
[2018-06-07] MEDS: PANTOPRAZOLE SODIUM 40 MG/VIAL (PROTONIX) IVP SCH (09:21)
[2018-06-07 09:34] LABS: PLATELET COUNT (AUTO) 65 K/uL (130-430)
[2018-06-07 11:39] VITALS: BP_SYST 131
[2018-06-07] MEDS: FOLIC ACID 1 MG, THIAMINE HCL 100 MG, MAGNESIUM SULFATE 1 GM, MVI 10 ML in NACL 0.9% 1,... IV SCH (14:03)
[2018-06-07 16:16] VITALS: BP_SYST 141
[2018-06-07] MEDS ORDERED: DIATR MEGLU/DIATRIZ SOD 30 ML SOLUTION PO ONE (16:26)
[2018-06-07] MEDS ORDERED: BISACODYL 5 MG TABLET.DR (DULCOLAX) PO ONE (17:00)
[2018-06-07] MEDS ORDERED: IOHEXOL 100 ML IV ONE (17:54)
[2018-06-07] MEDS ORDERED: GOLYTELY / COLYTE SOLUTION 4 LITERS PO ONE (18:00)
[2018-06-07 20:00] VITALS: BP_SYST 140
[2018-06-08 00:55] VITALS: BP_SYST 154
[2018-06-08] MEDS: KCL 20 mEq in NS 1000 mL 1,000 ML IV SCH ×3 (02:09→23:29)
[2018-06-08] MEDS: MORPHINE 4 MG/ML INJ. SYRINGE IVP PRN ×2 (02:18→11:46)
[2018-06-08 06:04] LABS: PROTHROMBIN TIME 10.3 SECS (9.5-12.5)
[2018-06-08 06:10] LABS: BILIRUBIN,DIRECT 0.3 mg/dL (0.0-0.3); CALCIUM 8.8 mg/dL (8.4-11.0); CREATININE 0.49 mg/dL (0.55-1.30); POTASSIUM 3.9 mmol/L (3.5-5.1); TOTAL BILIRUBIN 0.9 mg/dL (0.0-1.0)
[2018-06-08 08:00] VITALS: BP_SYST 140
[2018-06-08] MEDS: PANTOPRAZOLE SODIUM 40 MG/VIAL (PROTONIX) IVP SCH (08:24)
[2018-06-08 11:07] LABS: HEPATITIS A AB, IgM Negative (Negative); HEPATITIS B CORE AB, IgM Negative (Negative); HEPATITIS B SURFACE AG Negative (Negative)
[2018-06-08 11:42] VITALS: BP_SYST 131
[2018-06-08] MEDS: fentaNYL CITRATE/PF 100 MCG/2 ML AMP ONE ×2 (12:27→14:15)
[2018-06-08] MEDS ORDERED: MIDAZOLAM HCL 5 MG/5 ML VIAL ONE (12:28)
[2018-06-08] MEDS: MIDAZOLAM HCL 5 MG/5 ML VIAL ONE ×2 (12:28→14:15)
[2018-06-08] MEDS ORDERED: SIMETHICONE 40 MG/0.6 ML ML ONE (12:31)
[2018-06-08 16:00] VITALS: BP_SYST 126
[2018-06-08] MEDS: FOLIC ACID 1 MG, THIAMINE HCL 100 MG, MAGNESIUM SULFATE 1 GM, MVI 10 ML in NACL 0.9% 1,... IV SCH (16:06)
[2018-06-08 16:42] VITALS: BP_SYST 128
[2018-06-08 20:00] VITALS: BP_SYST 125
[2018-06-09 00:35] VITALS: BP_SYST 124
[2018-06-09 06:00] LABS: CALCIUM 8.5 mg/dL (8.4-11.0); CREATININE 0.54 mg/dL (0.55-1.30)
[2018-06-09 06:06] LABS: ALBUMIN 2.8 g/dL (3.4-4.8); BILIRUBIN,DIRECT 0.2 mg/dL (0.0-0.3); TOTAL BILIRUBIN 0.5 mg/dL (0.0-1.0)
[2018-06-09 08:05] VITALS: BP_SYST 141
[2018-06-09] MEDS: PANTOPRAZOLE SODIUM 40 MG/VIAL (PROTONIX) IVP SCH (08:18)
[2018-06-09] MEDS: KCL 20 mEq in NS 1000 mL 1,000 ML IV SCH (12:00)
[2018-06-09 12:16] VITALS: BP_SYST 116
[2018-06-09] MEDS: FOLIC ACID 1 MG, THIAMINE HCL 100 MG, MAGNESIUM SULFATE 1 GM, MVI 10 ML in NACL 0.9% 1,... IV SCH (13:10)
[2018-06-09 16:16] VITALS: BP_SYST 118
[2018-06-09 16:29] VITALS: BP_SYST 137
== END 2018-06-09 17:05 | disposition home or self-care (01) | DRG 280 ==
LOC: SED 07:23 → STU 10:42 → SMU 06-07 16:51
PROVIDERS: ADMIT Internal Medicine; ATTEND Internal Medicine
PROC: 0W3P8ZZ Control Bleeding in Gastrointestinal Tract, Via Natural or Artificial Opening Endoscopic (ICD-10-PCS; 2018-06-08)
PROC: 0DBE8ZX Excision of Large Intestine, Via Natural or Artificial Opening Endoscopic, Diagnostic (ICD-10-PCS; 2018-06-08)
PROC: 0DBK8ZZ Excision of Ascending Colon, Via Natural or Artificial Opening Endoscopic (ICD-10-PCS; principal; 2018-06-08 15:30)
PROC: 0DBP8ZZ Excision of Rectum, Via Natural or Artificial Opening Endoscopic (ICD-10-PCS; 2018-06-08 15:30)
DX: K70.10 Alcoholic hepatitis without ascites (principal); K85.90 Acute pancreatitis without necrosis or infection, unspecified; E83.42 Hypomagnesemia; K86.89 Other specified diseases of pancreas; K76.0 Fatty (change of) liver, not elsewhere classified; K62.1 Rectal polyp; E87.6 Hypokalemia; E11.9 Type 2 diabetes mellitus without complications; I10 Essential (primary) hypertension; F32.9 Major depressive disorder, single episode, unspecified; D12.2 Benign neoplasm of ascending colon; F43.10 Post-traumatic stress disorder, unspecified; K29.70 Gastritis, unspecified, without bleeding; Z87.891 Personal history of nicotine dependence; Z90.49 Acquired absence of other specified parts of digestive tract; Z98.84 Bariatric surgery status; Z91.011 Allergy to milk products; Z79.899 Other long term (current) drug therapy
CPT/HCPCS: 36415; 45380; 45384; 71045; 76700-TC; 80048; 80053; 80074; 80076; 82150-TC; 82962; 83605; 83690-TC; 83735-TC; 84443-TC; 84484; 85025; 85610-TC; 85730-TC; 87040-TC; 87045-TC; 87046; 87086; 88305; 89055; 93005; 96361; 96374; 96375; 99285; C9113; G0378; G0482; J0780; J1815; J1885; J2250; J2270; J2405; J3010; J3411; J3475; J3480; J3490; J7030; J7060; Q9964; Q9967

== ENCOUNTER 2018-12-24 18:57 | Emergency (ER) | payer MEDICAID ==
[~2018-12-24] VITALS: Ht 157.5 cm; Wt 68.0 kg
[~2018-12-24 18:57] MED LIST changes: -GLIP5TAB13 PO; -LISI-600 PO
[2018-12-24 19:30] VITALS: BP_SYST 135
[2018-12-24] MEDS ORDERED: DIPH-TET-PERTUS Vaccine 0.5 ML VIAL (ADACEL) I.M. ONE (20:00)
[2018-12-24] MEDS ORDERED: MORPHINE 4 MG/ML INJ. SYRINGE IVP ONE (20:00)
[2018-12-24] MEDS ORDERED: NACL 0.9% 1,000 ML IV ONE (20:00)
[2018-12-24] MEDS ORDERED: ASPIRIN 81 MG TAB.CHEW PO ONE (20:00)
[2018-12-24] MEDS ORDERED: NITROGLYCERIN 1 INCH (GM) OINT. TP ONE (20:00)
[2018-12-24 20:17] LABS: BASOPHILS % (AUTO) 0.3 % (0.0-2.0); EOSINOPHILS % (AUTO) 0.6 % (0.0-4.0); HEMATOCRIT 43.5 % (36-54); HEMOGLOBIN 14.2 g/dL (14.0-18.0); LYMPHOCYTES # (AUTO) 1.2 K/uL (1.0-5.5); LYMPHOCYTES % (AUTO) 18.2 % (20.5-51.5); MEAN CORPUSCULAR HEMOGLOBIN 27 pg (27-31); MEAN CORPUSCULAR HGB CONC 33 % (32-36); MEAN CORPUSCULAR VOLUME 83 fL (79.0-98.0); MONOCYTES # (AUTO) 0.3 K/uL (0.0-1.0); MONOCYTES % (AUTO) 4.7 % (1.7-9.3); NEUTROPHILS # (AUTO) 4.9 K/uL (1.8-7.7); NEUTROPHILS % (AUTO) 76.2 % (40.0-70.0); PLATELET COUNT (AUTO) 155 K/uL (130-430); RED BLOOD CELL COUNT(AUTO) 5.22 MIL/uL (4.2-6.2); RED CELL DISTRIBUTION WIDTH 18.2 % (9.0-15.0); WHITE BLOOD COUNT (AUTO) 6.4 K/uL (4.8-10.8)
[2018-12-24 20:29] LABS: ANION GAP 15 (5-15); CALCIUM 9.5 mg/dL (8.4-11.0); CHLORIDE 98 mmol/L (98-107); CREATININE 0.87 mg/dL (0.55-1.30); GLUCOSE 186 mg/dL (70-99); POTASSIUM 3.9 mmol/L (3.5-5.1); SODIUM SERUM 138 mmol/L (136-145); UREA NITROGEN, BLOOD 19 mg/dL (8-21)
[2018-12-24 20:36] LABS: GFR AFRICAN AMERICAN 121 mL/min (>90)
[2018-12-24 20:43] LABS: ALANINE AMINOTRANSFERASE 90 U/L (12-78); ALBUMIN 3.6 g/dL (3.4-4.8); ASPARTATE AMINOTRANSFERASE 60 U/L (10-37); TOTAL BILIRUBIN 1.9 mg/dL (0.0-1.0)
[2018-12-24] MEDS ORDERED: SILVER SULFADIAZINE 1%, 25 GM TOPICAL CREAM (SSD) TP ONE (21:00)
[2018-12-24] MEDS ORDERED: KETOROLAC TROMETHAMINE 30 MG VIAL IVP ONE (21:00)
[2018-12-24] MEDS ORDERED: LORazepam 2 MG/ML VIAL (FOR ER USE) IVP ONE (21:00)
[2018-12-24 22:03] VITALS: BP_SYST 134
== END 2018-12-24 22:03 | disposition home or self-care (01) ==
LOC: SED 18:57
DX: T23.102A Burn of first degree of left hand, unspecified site, initial encounter (principal); T31.0 Burns involving less than 10% of body surface; R07.89 Other chest pain; F41.9 Anxiety disorder, unspecified; E11.9 Type 2 diabetes mellitus without complications; I10 Essential (primary) hypertension; Z90.49 Acquired absence of other specified parts of digestive tract; Z98.84 Bariatric surgery status; Z79.899 Other long term (current) drug therapy; Z91.011 Allergy to milk products; X10.2XXA Contact with fats and cooking oils, initial encounter; Y93.G3 Activity, cooking and baking; Y92.89 Other specified places as the place of occurrence of the external cause; Y99.8 Other external cause status
CPT/HCPCS: 16020; 36415; 71045; 80053; 84484; 85025; 90471; 90715; 93005; 96374; 96375; 99284; J1885; J2060; J2270

== ENCOUNTER 2019-04-07 06:27 | Inpatient (IN) | payer MEDICAID ==
[~2019-04-07] VITALS: Ht 177.8 cm; Wt 72.6 kg
[2019-04-07 06:30] VITALS: BP_SYST 167
--- NOTE | 2019-04-07 06:33 | NUR ---
Placed in room 6 . Placed on monitor worker, blood pressure machine and pulse oximeter. To gown for exam. Side rails up. Report given to Marshall LANZA.
--- NOTE | 2019-04-07 06:38 | NUR ---
Iesha pate in ED - 04/07/19 at 0638 by VIDA ANGIE Badillo at bedside examining patient.
--- NOTE | 2019-04-07 06:38 | NUR ---
ER at bedside examining patient.
--- NOTE | 2019-04-07 06:42 | NUR ---
BIB fam member aaox4 from home c/o blood in stool black tarry x 3 days w/ hematuria,nausea,vomiting,lower abd pain,dizziness,weakness,sob.RR even/unlabored.Pt denies CP.
[2019-04-07] MEDS ORDERED: GLUXR500 PO (06:50)
[2019-04-07] MEDS ORDERED: ULTRAM PO (06:50)
[2019-04-07] MEDS ORDERED: METO25TA3 PO (06:50)
[2019-04-07] MEDS ORDERED: PRO10 PO (06:50)
[2019-04-07] MEDS ORDERED: RIVA10TA PO (06:50)
[2019-04-07] MEDS ORDERED: GLYB2.5T4 PO (06:50)
[2019-04-07] MEDS ORDERED: LISI10TA5 PO (06:50)
--- NOTE | 2019-04-07 06:50 | NUR ---
Medication reconciliation completed with information provided by PT at the bedside. Any prior medication reconciliation on file was reviewed and corrected.
--- NOTE | 2019-04-07 06:51 | NUR ---
# 20 gauge angiocath placed to rt ac by POOL Olivares. Use of asceptic technique. Opsite placed over site. Blood return noted. Blood for lab drawn from site. Flushed with 10 cc of normal saline. No evidence of infiltration noted. Patient tolerated well.
[2019-04-07] MEDS ORDERED: PANTOPRAZOLE SODIUM 40 MG in NS 50 ML IV SCH (07:00)
[2019-04-07] MEDS ORDERED: PANTOPRAZOLE SODIUM 40 MG/VIAL (PROTONIX) IVP ONE (07:00)
[2019-04-07] MEDS ORDERED: ONDANSETRON HCL 4 MG/2 ML VIAL IVP ONE (07:00)
--- NOTE | 2019-04-07 07:01 | NUR ---
Rectal exam performed by Dr. Mcpherson with Aida LANZA at bedside during procedure. Patient tolerated well.
[2019-04-07 07:02] LABS: HEMATOCRIT 41.7 % (36-54); HEMOGLOBIN 13.8 g/dL (14.0-18.0); MEAN CORPUSCULAR VOLUME 82 fL (79.0-98.0); RED BLOOD CELL COUNT(AUTO) 5.11 MIL/uL (4.2-6.2); WHITE BLOOD COUNT (AUTO) 8.6 K/uL (4.8-10.8)
[2019-04-07 07:03] LABS: BASOPHILS % (AUTO) 0.5 % (0.0-2.0); EOSINOPHILS % (AUTO) 0.2 % (0.0-4.0); LYMPHOCYTES # (AUTO) 0.8 K/uL (1.0-5.5); LYMPHOCYTES % (AUTO) 9.2 % (20.5-51.5); MEAN CORPUSCULAR HEMOGLOBIN 27 pg (27-31); MEAN CORPUSCULAR HGB CONC 33 % (32-36); MONOCYTES # (AUTO) 0.5 K/uL (0.0-1.0); MONOCYTES % (AUTO) 5.5 % (1.7-9.3); NEUTROPHILS # (AUTO) 7.3 K/uL (1.8-7.7); NEUTROPHILS % (AUTO) 84.6 % (40.0-70.0)
--- NOTE | 2019-04-07 07:04 | NUR ---
Report received from POOL Olivares for continuation of care.
[2019-04-07] MEDS ORDERED: ONDANSETRON HCL 4 MG/2 ML VIAL ONE (07:06)
[2019-04-07] MEDS ORDERED: NACL 0.9% 1,000 ML IV ONE (07:15)
[2019-04-07] MEDS ORDERED: MORPHINE 4 MG/ML INJ. SYRINGE IVP ONE (07:15)
[2019-04-07 07:16] LABS: CALCIUM 9.3 mg/dL (8.4-11.0); CREATININE 0.71 mg/dL (0.55-1.30); POTASSIUM 3.8 mmol/L (3.5-5.1)
[2019-04-07 07:23] LABS: TOTAL BILIRUBIN 1.7 mg/dL (0.0-1.0)
[2019-04-07 07:29] LABS: PLATELET COUNT (AUTO) 58 K/uL (130-430)
[2019-04-07 07:52] LABS: INR 1.1 (0.80-1.20); PROTHROMBIN TIME 10.9 SECS (9.5-12.5)
[2019-04-07] MEDS ORDERED: IOHEXOL 100 ML IV ONE (07:52)
--- NOTE | 2019-04-07 08:06 | NUR ---
Report given to Chelita for continuation of care.
--- NOTE | 2019-04-07 08:26 | NUR ---
Dr. Rai made aware of patient vitals.
--- NOTE | 2019-04-07 09:16 | NUR ---
Patient will be admitted to care of Dr. Goddard. Admitted to telemetry unit. Room to be assigned. Belongings list completed. Summary report printed. Report will be given at bedside.
[2019-04-07 09:30] LABS: BILIRUBIN,URINE 1+ (NEGATIVE); CLARITY/URINE CLEAR (CLEAR); COLOR,URINE YELLOW (YELLOW); GLUCOSE,URINE NEGATIVE (NEGATIVE); KETONES,URINE 2+ (NEGATIVE); LEUKOCYTE ESTERASE ,URINE NEGATIVE (NEGATIVE); NITRITE, URINE NEGATIVE (NEGATIVE); PH,URINE 6.5 (5.0-8.0); PROTEIN URINE TRACE (NEGATIVE)
[2019-04-07 09:31] LABS: BLOOD, URINE TRACE (NEGATIVE)
[2019-04-07 09:32] LABS: RBC,URINE 0-3 /HPF (0-3); WBC,URINE 0-3 /HPF (0-3)
[2019-04-07 09:33] LABS: BACTERIA,URINE RARE /HPF (None Seen)
[2019-04-07] MEDS ORDERED: LORazepam 2 MG/ML VIAL IM PRN (09:45)
[2019-04-07] MEDS ORDERED: INSULIN REGULAR, HUMAN 100 UNITS/ML, 10 ML VIAL (humuLIN R) SUBCUT PRN (09:45)
[2019-04-07] MEDS ORDERED: LISINOPRIL 10 MG TABLET (PRINIVIL) PO ONE (09:45)
[2019-04-07] MEDS ORDERED: METOPROLOL SUCCINATE 25 MG TAB.SR.24H (TOPROL XL) PO ONE (09:45)
[2019-04-07] MEDS ORDERED: ONDANSETRON HCL 4 MG/2 ML VIAL IVP PRN (09:45)
[2019-04-07] MEDS ORDERED: GLUCOSE 15 GM GEL (in 37.5 GM TUBE) PO PRN (09:45)
[2019-04-07] MEDS ORDERED: DEXTROSE 50% JECT 50 ML DISP.SYRIN IVP PRN (09:45)
--- NOTE | 2019-04-07 09:45 | NUR ---
Transfer to 117A via ACLS protocol. 2 Licensed nurse present. IV present no signs or symptoms of infiltration.
[2019-04-07 10:07] LABS: BARBITURATE, URINE NEGATIVE (NEG <=200); BENZODIAZEPINE, URINE NEGATIVE (NEG <=150); CANNABINOID, URINE NEGATIVE (NEG <=50); COCAINE, URINE NEGATIVE (NEG <=150); METHAMPHETAMINES SCREEN,URINE NEGATIVE (NEG <=500); OPIATE, URINE POSITIVE (NEG <=100); PHENCYCLIDINE SCREEN,URINE NEGATIVE (NEG <=25); UR TRICYCLIC ANTIDEPRESSANTS NEGATIVE (NEG <=300); URINE AMPHETAMINE NEGATIVE (NEG <=500); URINE METHADONE NEGATIVE (NEG <=200); URINE OXYCODONE SCREEN NEGATIVE (NEG <=100); URINE PROPOXYPHENE SCREEN NEGATIVE (NEG <=300)
[2019-04-07] MEDS: MORPHINE 2 MG/ML INJ. SYRINGE IVP PRN ×4 (10:12→21:55)
[2019-04-07 10:50] VITALS: BP_SYST 143
[2019-04-07 10:51] LABS: PHOSPHORUS 2.4 mg/dL (2.7-4.5)
[2019-04-07 11:17] LABS: THYROID STIMULATING HORMONE 1.57 uIu/mL (0.36-3.74)
[2019-04-07 12:00] VITALS: BP_SYST 148
[2019-04-07] MEDS: NACL 0.9% 1,000 ML IV SCH ×2 (12:43→16:04)
[2019-04-07] MEDS ORDERED: MAGNESIUM SULFATE/D5W 100 ML IV ONE (14:30)
[2019-04-07] MEDS ORDERED: MORPHINE 2 MG/ML INJ. SYRINGE IVP ONE (14:45)
[2019-04-07] MEDS: LORazepam 1 MG TABLET PO SCH ×2 (15:06→21:46)
[2019-04-07 16:00] VITALS: BP_SYST 111
[2019-04-07 19:22] VITALS: BP_SYST 115
--- NOTE | 2019-04-07 19:30 | NUR ---
initial notes: pt is on bed. alert, awake, oriented x 4. no complain of at this time. not distress. no sob. ivf infusing well. vital sign are with in normal limit. discuss to pt his medication and safety, plan of care. pt verbalized understanding. needs attended, call light in reach. low bed position. safety on. will follow-up.
[2019-04-07] MEDS: DOCUSATE SODIUM 100 MG CAPSULE PO SCH (21:46)
--- NOTE | 2019-04-07 22:00 | NUR ---
sleeping, no sign of pain. not distress. ivf infusing well. needs attended. will follow-up.
--- NOTE | 2019-04-08 00:20 | NUR ---
pt wakes up. ambulate to bathroom to void, steady. back to bed. complain of pain. vital sign stable. needs attended call light in reach. will follow-up.
[2019-04-08 00:29] VITALS: BP_SYST 140
[2019-04-08] MEDS: NACL 0.9% 1,000 ML IV SCH ×3 (00:40→19:45)
[2019-04-08] MEDS: MORPHINE 2 MG/ML INJ. SYRINGE IVP PRN ×4 (00:49→21:38)
--- NOTE | 2019-04-08 02:44 | NUR ---
sleeping, no sob, no pain. not distress, vif infusing well. safety on, call light in reach. will follow-up.
--- NOTE | 2019-04-08 06:00 | NUR ---
awake, alert. no pain. stable. ivf infusing well. will follow-up.
[2019-04-08] MEDS: LORazepam 1 MG TABLET PO SCH ×3 (06:05→21:41)
--- NOTE | 2019-04-08 06:56 | NUR ---
Nutrition Update Lino Scale 18 noted. Pt admitted for Alcohol Induced Pancreatitis Diet: NPO BMI: 23 kg/m2 RD to follow per nutrition care standards.
[2019-04-08 07:20] LABS: BASOPHILS % (AUTO) 0.2 % (0.0-2.0); EOSINOPHILS # (AUTO) 0.1 K/uL (0.0-0.4); HEMATOCRIT 34.5 % (36-54); HEMOGLOBIN 11.4 g/dL (14.0-18.0); LYMPHOCYTES # (AUTO) 0.9 K/uL (1.0-5.5); LYMPHOCYTES % (AUTO) 14.7 % (20.5-51.5); MEAN CORPUSCULAR HEMOGLOBIN 27 pg (27-31); MEAN CORPUSCULAR HGB CONC 33 % (32-36); MEAN CORPUSCULAR VOLUME 83 fL (79.0-98.0); MONOCYTES # (AUTO) 0.5 K/uL (0.0-1.0); MONOCYTES % (AUTO) 8.2 % (1.7-9.3); NEUTROPHILS # (AUTO) 4.5 K/uL (1.8-7.7); NEUTROPHILS % (AUTO) 75.9 % (40.0-70.0); RED BLOOD CELL COUNT(AUTO) 4.17 MIL/uL (4.2-6.2); RED CELL DISTRIBUTION WIDTH 19.8 % (9.0-15.0)
[2019-04-08 07:21] LABS: WHITE BLOOD COUNT (AUTO) 5.9 K/uL (4.8-10.8)
--- NOTE | 2019-04-08 07:30 | NUR ---
CLOSING: awake, alert during report. stable. call light in reach. needs attended the whole shift. bedside report given to am rn.
[2019-04-08 07:33] LABS: CALCIUM 7.7 mg/dL (8.4-11.0); CREATININE 0.63 mg/dL (0.55-1.30)
[2019-04-08 07:38] VITALS: BP_SYST 121
--- NOTE | 2019-04-08 07:40 | NUR ---
INITIAL ROUNDS Received pt AAOx4, no s/s resp distress, c/o pain to abd 11/29-will check on pain medications and give if due. Plan of care for the day reviewed with pt-pt verbalized his understanding. IVF infusing well to RAC at ordered rate with no s/s infiltration to site. Pain management, disease process, skin and safety discussed-teach back done. Call light within reach.
[2019-04-08] MEDS ORDERED: glyBURIDE 2.5 MG TABLET PO SCH (08:30)
[2019-04-08] MEDS ORDERED: POTASSIUM CHLORIDE 40 MEQ, LIDOCAINE JECT 2% PF 100 MG 75 MG in NS 250 ML IV ONE (09:30)
[2019-04-08 09:41] LABS: PLATELET COUNT (AUTO) 54 K/uL (130-430)
[2019-04-08] MEDS: METOPROLOL SUCCINATE 25 MG TAB.SR.24H (TOPROL XL) PO SCH (10:08)
[2019-04-08] MEDS: FOLIC ACID 1 MG TABLET PO SCH (10:09)
[2019-04-08] MEDS: FLUoxetine HCL 10 MG CAPSULE (PROzac) PO SCH (10:09)
[2019-04-08] MEDS: MULTIVITS,CA,MINERALS/IRON/FA 1 TABLET PO SCH (10:09)
[2019-04-08] MEDS: DOCUSATE SODIUM 100 MG CAPSULE PO SCH ×2 (10:09→21:00)
[2019-04-08] MEDS: THIAMINE HCL 100 MG TABLET PO SCH (10:09)
[2019-04-08] MEDS: LISINOPRIL 10 MG TABLET (PRINIVIL) PO SCH (10:10)
--- NOTE | 2019-04-08 12:50 | NUR ---
LOW BLOOD SUGAR Fingerstick done at 1222 Glucose was 30 mg/dl-pt awake, alert, c/o feeling "sweaty". Pt given 16 oz cranberry juice and jello, blood sugar rechecked now Glucose 113 mg/dl. Pt remains awake, alert and no feeling of "sweatiness. Pt given lunch tray. DR. Goddard called, awaiting call back. Pt's mother now at bedside.
[2019-04-08 16:02] VITALS: BP_SYST 143
--- NOTE | 2019-04-08 18:04 | NUR ---
CLOSING NOTE Pt resting quietly in bed with no s/s resp distress, no further c/o pain or discomfort. IVF infusing well to RAC at ordered rate with no s/s infiltration to site. Pt downgraded to medsurg status-telemetry removed. Needs met, call light within reach.
--- NOTE | 2019-04-08 19:25 | NUR ---
OPENING NOTES RECEIVED PATIENT IN BED AAO X4. BREATHING UNLABORED ON ROOM AIR. NO C/O PAIN AT THIS TIME. IVF INFUSING WITH IV LINE INTACT. BED IN LOWEST LOCKED POSITION. CALL LIGHT WITH IN REACH.
[2019-04-08 21:30] VITALS: BP_SYST 129
--- NOTE | 2019-04-08 21:41 | NUR ---
PAIN MGT PATIENT MEDICATED WITH MORPHINE ORDERED FOR C/O ABDOMINAL PAIN. VITAL SIGNS STABLE. DUE MEDICATIONS GIVEN.
--- NOTE | 2019-04-09 01:30 | NUR ---
ROUNDS PATIENT AWAKE. NO DISTRESS NOTED. IVF INFUSING.
[2019-04-09 04:44] VITALS: BP_SYST 133
[2019-04-09] MEDS: MORPHINE 2 MG/ML INJ. SYRINGE IVP PRN ×4 (04:46→20:52)
--- NOTE | 2019-04-09 04:46 | NUR ---
PAIN MGT PATIENT MEDICATED WITH MORPHINE FOR C/O ABDOMINAL PAIN. VITAL SIGNS STABLE. CALL LIGHT WITH IN REACH.
[2019-04-09] MEDS: NACL 0.9% 1,000 ML IV SCH ×2 (04:51→17:23)
[2019-04-09] MEDS: LORazepam 1 MG TABLET PO SCH ×3 (05:35→22:08)
--- NOTE | 2019-04-09 05:38 | NUR ---
AM MEDS PATIENT DUE MEDICATIONS GIVEN. ROUTINE FINGER STICK SUGAR 151. PATIENT REFUSED SLIDING SCALE COVERAGE.
--- NOTE | 2019-04-09 06:44 | NUR ---
CLOSING NOTES PATIENT RESTING IN BED. NO DISTRESS NOTED. IVF INFUSING WITH IV LINE INTACT. PATIENT NEEDS ATTENDED. BED IN LOWEST LOCKED POSITION. CALL LIGHT WITH IN REACH.
[2019-04-09 07:30] LABS: CALCIUM 7.8 mg/dL (8.4-11.0); CREATININE 0.5 mg/dL (0.55-1.30)
[2019-04-09 07:33] LABS: POTASSIUM 2.9 mmol/L (3.5-5.1)
[2019-04-09 07:35] LABS: BASOPHILS % (AUTO) 0.2 % (0.0-2.0); EOSINOPHILS # (AUTO) 0.1 K/uL (0.0-0.4); EOSINOPHILS % (AUTO) 1.4 % (0.0-4.0); HEMATOCRIT 31.4 % (36-54); HEMOGLOBIN 10.4 g/dL (14.0-18.0); LYMPHOCYTES # (AUTO) 0.8 K/uL (1.0-5.5); LYMPHOCYTES % (AUTO) 19.9 % (20.5-51.5); MEAN CORPUSCULAR HEMOGLOBIN 27 pg (27-31); MEAN CORPUSCULAR HGB CONC 33 % (32-36); MEAN CORPUSCULAR VOLUME 82 fL (79.0-98.0); MONOCYTES # (AUTO) 0.4 K/uL (0.0-1.0); MONOCYTES % (AUTO) 10.8 % (1.7-9.3); NEUTROPHILS # (AUTO) 2.8 K/uL (1.8-7.7); NEUTROPHILS % (AUTO) 67.7 % (40.0-70.0); PLATELET COUNT (AUTO) 57 K/uL (130-430); RED BLOOD CELL COUNT(AUTO) 3.83 MIL/uL (4.2-6.2); RED CELL DISTRIBUTION WIDTH 19.5 % (9.0-15.0)
[2019-04-09 07:55] LABS: WHITE BLOOD COUNT (AUTO) 4.1 K/uL (4.8-10.8)
[2019-04-09] MEDS ORDERED: MAGNESIUM SULFATE 4 GM in D5W 250 ML IV ONE (08:15)
[2019-04-09] MEDS ORDERED: POTASSIUM CHLORIDE 20 MEQ/PKT PACKET PO ONE (08:15)
[2019-04-09] MEDS ORDERED: POTASSIUM CHLORIDE 40 MEQ, LIDOCAINE JECT 2% PF 100 MG 50 MG in NS 250 ML IV ONE (08:15)
[2019-04-09] MEDS: glyBURIDE 5 MG TABLET PO SCH (08:30)
[2019-04-09] MEDS: DOCUSATE SODIUM 100 MG CAPSULE PO SCH ×2 (09:00→20:53)
--- NOTE | 2019-04-09 09:00 | NUR ---
initial notes rec patient awake alert . ivf infusing well. c/o pain and will medicate patient. resp easy and unlabored. no osb noted. bed to the lowest position and side rails up and locked. call light within reached.
[2019-04-09 09:03] VITALS: BP_SYST 151
[2019-04-09] MEDS: LISINOPRIL 10 MG TABLET (PRINIVIL) PO SCH (09:23)
[2019-04-09] MEDS: FOLIC ACID 1 MG TABLET PO SCH (09:23)
[2019-04-09] MEDS: MULTIVITS,CA,MINERALS/IRON/FA 1 TABLET PO SCH (09:24)
[2019-04-09] MEDS: METOPROLOL SUCCINATE 25 MG TAB.SR.24H (TOPROL XL) PO SCH (09:24)
[2019-04-09] MEDS: FLUoxetine HCL 10 MG CAPSULE (PROzac) PO SCH (09:24)
[2019-04-09] MEDS: THIAMINE HCL 100 MG TABLET PO SCH (09:24)
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
[2019-04-09 17:00] VITALS: BP_SYST 166
[2019-04-09] MEDS ORDERED: METOPROLOL TARTRATE 50 MG TABLET PO ONE (17:30)
--- NOTE | 2019-04-09 18:30 | NUR ---
closing notes dr bazzi was called and got upset that patient still here. explained to him that pt go t risers and ranning at 4 hours each. akso mentioned to him re levated bp and with orders.
--- NOTE | 2019-04-09 19:30 | NUR ---
Opening notes Received report. Patient is resting in bed, on phone. No signs of distress noted. Breathing even and unlabored. IV patent and intact, infusing fluids. Patient states pain is tolerable at this time. No needs. Call light with the patient. Safety precautions in place.
[2019-04-09 20:00] VITALS: BP_SYST 115
[2019-04-09 20:23] LABS: CALCIUM 7.4 mg/dL (8.4-11.0); CREATININE 0.55 mg/dL (0.55-1.30); POTASSIUM 3.6 mmol/L (3.5-5.1)
--- NOTE | 2019-04-09 21:00 | NUR ---
Medications Patient refused colace as patient has been having loose stools. PRN pain medications given. Educated the action and side effects of medication and fall precautions. Patient verbalized understanding and tolerated well. No other needs. Call light with the patient. Safety precautions in place.
--- NOTE | 2019-04-09 23:45 | NUR ---
Resting Patient is resting in bed. No signs of distress noted. Breathing even and unlabored. IVF infusing well. Call light with the patient. Safety precautions in place.
[2019-04-10] VITALS: BP_SYST 123
[2019-04-10] MEDS: NACL 0.9% 1,000 ML IV SCH (01:17)
--- NOTE | 2019-04-10 01:49 | NUR ---
Sleeping No signs of distress noted. Breathing even and unlabored. IVF infusing well. Call light with the patient. Safety precautions in place.
--- NOTE | 2019-04-10 04:35 | NUR ---
Patient refused reinsertion of IV Patient IV was pulled out. Catheter tip intact and discarded. Patient refuses to have IV inserted. Patient states "I'm going home later, I don't need it." Educated the patient the importance of having IV access, and patient in IV fluids. Patient still refuses. Provided patient with chicken broth. No other needs. Call light with the patient. Safety precautions in place.
[2019-04-10] MEDS ORDERED: METOPROLOL TARTRATE 50 MG TABLET PO SCH (06:00)
[2019-04-10 06:20] VITALS: BP_SYST 121
[2019-04-10] MEDS: LORazepam 1 MG TABLET PO SCH (06:28)
--- NOTE | 2019-04-10 06:53 | NUR ---
Closing notes Patient is resting in bed, no signs of distress noted. Breathing even and unlabored. VSS. All needs met throughout the shift. Call light with the patient. No seizure activity noted. Safety precautions in place. Will endorse care to day shift RN.
--- NOTE | 2019-04-10 08:00 | NUR ---
initial notes rec patient awake alert and sitting at bedside. resp easy and unlabored. bed to the lowest position and side rails up and locked. call light withn reached and knows when to call for assistance. [email or web address] for dr bazzi to see patient for d/c.
[2019-04-10 08:05] VITALS: BP_SYST 131
[2019-04-10 08:07] VITALS: BP_SYST 131
[2019-04-10] MEDS: glyBURIDE 5 MG TABLET PO SCH (08:30)
[2019-04-10] MEDS: MULTIVITS,CA,MINERALS/IRON/FA 1 TABLET PO SCH (09:00)
[2019-04-10] MEDS: FOLIC ACID 1 MG TABLET PO SCH (09:00)
[2019-04-10] MEDS: DOCUSATE SODIUM 100 MG CAPSULE PO SCH (09:00)
[2019-04-10] MEDS: THIAMINE HCL 100 MG TABLET PO SCH (09:00)
[2019-04-10] MEDS: FLUoxetine HCL 10 MG CAPSULE (PROzac) PO SCH (09:00)
[2019-04-10] MEDS: LISINOPRIL 10 MG TABLET (PRINIVIL) PO SCH (09:00)
--- NOTE | 2019-04-10 09:20 | NUR ---
rounds pt was discharged. was escorted t o the lobby and wait for his mom. refused to take am meds and wants to go home. id band was removed. instructed re kimberlyn to see pmd and resumed meds. stable and needs attended.
== END 2019-04-10 09:25 | disposition home or self-care (01) | DRG 282 ==
LOC: SED 06:27 → STU 09:14 → SMU 04-08 18:09
PROVIDERS: ADMIT Student in an Organized Health Care Education/Training Program; ATTEND Student in an Organized Health Care Education/Training Program
DX: K85.20 Alcohol induced acute pancreatitis without necrosis or infection (principal); D68.59 Other primary thrombophilia; D69.6 Thrombocytopenia, unspecified; F10.239 Alcohol dependence with withdrawal, unspecified; F32.9 Major depressive disorder, single episode, unspecified; F41.9 Anxiety disorder, unspecified; E11.9 Type 2 diabetes mellitus without complications; I10 Essential (primary) hypertension; E87.1 Hypo-osmolality and hyponatremia; E87.6 Hypokalemia; Z90.49 Acquired absence of other specified parts of digestive tract; Z79.899 Other long term (current) drug therapy; Z87.81 Personal history of (healed) traumatic fracture
CPT/HCPCS: 36415; 71045; 80048; 80053; 80061; 80307; 81000-TC; 82140-TC; 82962; 83036; 83605; 83615-TC; 83690-TC; 83735-TC; 83880; 84100-TC; 84443-TC; 84484; 85025; 85610-TC; 85730-TC; 86886; 86900; 86901; 93005; 96361; 96374; 96375; 99285; C9113; G0378; G0482; J1815; J2270; J2405; J3475; J3480; J7030; J7050; J7060; Q9967

== ENCOUNTER 2019-06-14 16:47 | Emergency (ER) | payer MEDICAID ==
[~2019-06-14] VITALS: Ht 172.7 cm; Wt 77.1 kg
[2019-06-14 16:47] VITALS: BP_SYST 110
[~2019-06-14 16:47] MED LIST changes: +GLUXR500 PO; +GLYB2.5T4 PO; -HYDR-4272 PO; +LISI10TA5 PO; -LORA2TAB95 PO; +METO25TA3 PO; +PRO10 PO; -PRO40 PO; +ULTRAM PO
--- NOTE | 2019-06-14 18:30 | NUR ---
Patient to ER bed 05 for evaluation. Side rails up.
--- NOTE | 2019-06-14 18:38 | NUR ---
ER Dr. Cobb at bedside examining patient.
--- NOTE | 2019-06-14 18:50 | NUR ---
Patient AAO x 4 ambulates to ER bed 05 with complaints of 8/10 non-radiating L sided flank pain. Denies abdominal pain and dysuria. Denies N/V/D. Even chest rise and fall with respirations. Will continue to monitor.
[2019-06-14] MEDS ORDERED: KETOROLAC TROMETHAMINE 60 MG/2 ML VIAL IM ONE (19:00)
[2019-06-14 20:00] VITALS: BP_SYST 114
--- NOTE | 2019-06-14 20:00 | NUR ---
Patient given written and verbal discharge instructions and verbalizes understanding. ER MD Dr. Cobb discussed with patient the results and treatment provided. Patient in stable condition. ID arm band removed. Rx of Tramadol given. Patient educated on pain management and to follow up with PMD. Pain Scale 4/10. Opportunity for questions provided and answered. Medication side effect fact sheet provided.
== END 2019-06-14 20:00 | disposition home or self-care (01) ==
LOC: SED 16:47
DX: R10.9 Unspecified abdominal pain (principal); E11.9 Type 2 diabetes mellitus without complications; I10 Essential (primary) hypertension; Z90.49 Acquired absence of other specified parts of digestive tract; Z79.899 Other long term (current) drug therapy; Z91.011 Allergy to milk products
CPT/HCPCS: 71045; 72100; 96372; 99283; J1885